=== PATIENT | male | born 1950 | race Caucasian/White ===

== ENCOUNTER 2016-06-11 11:55 | Inpatient (IN) | payer MEDICAID, OTHER ==
[~2016-06-11] VITALS: Ht 167.6 cm; Wt 67.8 kg
[2016-06-11 14:30] VITALS: BP 99/57
[2016-06-11] MEDS ORDERED: ACETAMINOPHEN TAB 650MG DOSE (2X325MG) PO PRN (15:00)
[2016-06-11 15:28] VITALS: BP 100/58
[2016-06-11] MEDS ORDERED: ACET50TA PO (15:35)
[2016-06-11] MEDS ORDERED: ASPI81TA13 PO (15:35)
[2016-06-11] MEDS ORDERED: AMIO20TA PO (15:35)
[2016-06-11] MEDS ORDERED: LISI40TAB PO (15:35)
[2016-06-11] MEDS ORDERED: XARE20TA PO (15:35)
[2016-06-11] MEDS ORDERED: ALBU17IN INH (15:35)
[2016-06-11] MEDS ORDERED: MAGN1TAB25 PO (15:35)
[2016-06-11] MEDS ORDERED: SERT-141 PO (15:35)
[2016-06-11] MEDS ORDERED: PANT40TA2 PO (15:35)
[2016-06-11] MEDS ORDERED: ATOR1TAB21 PO (15:35)
[2016-06-11] MEDS ORDERED: HYDR10T PO (15:35)
[2016-06-11] MEDS ORDERED: ALOG25TA PO (15:35)
[2016-06-11] MEDS ORDERED: RANE1000 PO (15:35)
[2016-06-11] MEDS ORDERED: METF500T PO (15:35)
[2016-06-11] MEDS ORDERED: AMLO2.5T PO (15:35)
[2016-06-11 16:35] LABS: ADD MORPHOLOGY? YES; BASO # 0.2 K/mm3 (0.0-0.2); BASO % 1.2 % (0.0-1.0); EOS # 0.3 K/mm3 (0.0-0.50); LARGE UNSTAINED CELL # 0.3 K/mm3 (0.0-0.4); LYMPH # 1.3 K/mm3 (1.5-4.5); LYMPH % 7.5 % (24.0-44.0); MEAN CORPUSCULAR HEMOGLOBIN 23.4 pg (27.0-33.0); MEAN CORPUSCULAR HGB CONC 29.7 g/dl (32.0-36.5); MEAN CORPUSCULAR VOLUME 78.9 fl (80.0-96.0); MONO # 1.1 K/mm3 (0.0-0.8); NEUTROPHILS # 10.4 K/mm3 (1.8-7.7); NEUTROPHILS % 79.2 % (36.0-66.0); PLATELET COUNT, AUTOMATED 350 k/mm3 (150-450); RED CELL DISTRIBUTION WIDTH 21.5 % (11.5-14.5); WHITE BLOOD COUNT 13.1 K/mm3 (4.0-10.0)
[2016-06-11 16:55] LABS: ALBUMIN 2.4 GM/DL (3.2-5.2); ALBUMIN/GLOBULIN RATIO 0.65 (1.00-1.93); ALKALINE PHOSPHATASE 141 U/L (45-117); ALT/SGPT 25 U/L (12-78); ANION GAP 9 MEQ/L (8-16); AST/SGOT 21 U/L (15-37); BILIRUBIN,TOTAL 0.6 MG/DL (0.2-1.0); BLOOD UREA NITROGEN 27 MG/DL (7-18); CALCIUM LEVEL 8.1 MG/DL (8.8-10.2); CARBON DIOXIDE LEVEL 24 MEQ/L (21-32); CHLORIDE LEVEL 105 MEQ/L (98-107); CHOLESTEROL LEVEL 95 MG/DL (< 200); CREATININE FOR GFR 0.77 MG/DL (0.70-1.30); GLOMERULAR FILTRATION RATE > 60.0 (>49); GLUCOSE, FASTING 131 MG/DL (80-110); MAGNESIUM LEVEL 2.1 MG/DL (1.8-2.4); PHOSPHORUS LEVEL 3.4 MG/DL (2.5-4.9); POTASSIUM SERUM 4.3 MEQ/L (3.5-5.1); SODIUM LEVEL 138 MEQ/L (136-145); TOTAL PROTEIN 6.1 GM/DL (6.4-8.2); TRIGLYCERIDES LEVEL 93 MG/DL (<150)
[2016-06-11 17:38] LABS: ANISOCYTOSIS 2+; HYPOCHROMASIA 1+; MICROCYTOSIS 1+; POLYCHROMASIA 1+
[2016-06-11] MEDS ORDERED: GLUCAGON FOR INJ 1 MG VIAL (J1610) SC PRN (17:45)
[2016-06-11] MEDS ORDERED: DEXTROSE 50% 50 ML SYRINGE IV PRN (17:45)
[2016-06-11] MEDS ORDERED: GLUCOSE 4 GM CHEW TABLET PO PRN (17:45)
[2016-06-11] MEDS ORDERED: hydrOXYzine 10 MG TAB PO PRN (18:00)
--- NOTE | 2016-06-11 18:29 | PHACANCOPD ---
PHARMACY VANCOMYCIN DOSING Pt Demographics Demographics Patient Age:66 , Weight:65.400 , Gender: male Adjusted Body Weight Date: 06/11/16, Adjusted Body Weight: Kg Events Past 24 Hours Events Past 24 Hours: YES: Elevation in WBC, NO: Change in CrCl, Dialysis, Diuretic Therapy, Fever, Other, Pending Diagnostics, Pending Procedures Vancomycin Vancomycin indication: pneumonia Vancomycin Target Ranges: 15-20 mcg/ml Vancomycin Load Y/N: No Load Dose Date Time Vancomycin Load Dose: Date: Time: Vancomycin Dose Date: 06/11/16. Current Vancomycin Dose: [1g IV q8h @21] Intermittent Dosing?: No Labs Labs Item Value Date Time White Blood Count 13.1 K/mm3 H 06/11/16 1616 Creatinine 0.77 MG/DL 06/11/16 1616 Micro Microbiology 06/11/16 Blood Culture, Received Pending 06/11/16 Blood Culture, Received Pending 06/11/16 MRSA Screen, Received Pending 06/11/16 Respiratory Virus Panel (PCR) ([facility]), Received Pending 06/11/16 Urine Culture, Received Pending Creatinine Clearance Date:06/11/16. Creatinine Clearance: [87 ml/min]. Pending Labs Vanco trough scheduled 06/13 @04:00 Assessment and Plan Maintaining Current Dose?: Yes Reason for dose change: No Dose Change Pharmacist Note Pharmacist Note Date: 06/11/16. Pharmacist note: pt was transferred from [facility] for pneumonia, he was started on meropenem and vancomycin upon arrival to [facility]. Per nursing, no medications were given at [place]. Pt has no medical Hx at our facility. I have started him on vancomycin 1g IV q8h and I have a trough scheduled before the 5th dose. Blood and MRSA screen are pending. We will continue to monitor. Sergey Kwon Pharm.D. Jun 11, 2016 18:29
--- NOTE | 2016-06-11 18:47 | REP ---
PA and lateral chest: Comparison is the PA and lateral chest study from earlier today. There are no other comparisons. There are diffuse bilateral interstitial and alveolar infiltrates. These are nonspecific, cardiogenic versus noncardiogenic. There are no pleural effusions. Cardiac size is normal. The jjoo, mediastinum, and bony thorax are unremarkable. Impression: Diffuse bilateral alveolar and interstitial infiltrates. No interval change. Signed by Gabo Blackwood MD 06/11/2016 06:39 P
[2016-06-11] MEDS: MEROPENEM INJ 1 GM in D5W MINI-BAG PLUS 100 ML IV SCH (19:22)
[2016-06-11] MEDS: IPRATROPIUM 0.5MG/ALBUTEROL 2.5MG INH SOL UD 3ML (DUONEB)(J7620) NEB SCH (20:14)
[2016-06-11 20:15] VITALS: O2SAT 93
[2016-06-11 20:26] VITALS: BP 104/56
[2016-06-11] MEDS: RIVAROXABAN 20 MG TAB (XARELTO) PO SCH (20:49)
[2016-06-11] MEDS: ATORVASTATIN 20 MG TAB PO SCH (20:49)
[2016-06-11] MEDS: VANCOMYCIN HCL 1,000 MG, VIAL MATE ADAPTER 1 EACH in D5W 250 ML IV SCH (20:49)
[2016-06-11] MEDS: RANOLAZINE 500 MG ER TAB PO SCH (20:49)
[2016-06-11] MEDS ORDERED: HumaLOG INSULIN (NovoLOG) PER UNIT SC SCH (21:00)
[2016-06-11] MEDS: IPRATROPIUM 0.5MG/ALBUTEROL 2.5MG INH SOL UD 3ML (DUONEB)(J7620) NEB PRN (23:53)
[2016-06-12] VITALS (13 sets, daily range): BP systolic 106–122; BP diastolic 56–68; O2SAT 90
[2016-06-12] MEDS: IPRATROPIUM 0.5MG/ALBUTEROL 2.5MG INH SOL UD 3ML (DUONEB)(J7620) NEB SCH ×4 (00:46→19:34)
[2016-06-12 01:19] LABS: MEAN CORPUSCULAR HEMOGLOBIN 25.3 pg (27.0-33.0); MEAN CORPUSCULAR HGB CONC 31.5 g/dl (32.0-36.5); MEAN CORPUSCULAR VOLUME 80.1 fl (80.0-96.0); RED CELL DISTRIBUTION WIDTH 19.5 % (11.5-14.5); WHITE BLOOD COUNT 15.4 K/mm3 (4.0-10.0)
--- NOTE | 2016-06-12 01:52 | HPE ---
DATE OF ADMISSION: 06/11/2016 REASON FOR ADMISSION: Shortness of breath. PRIMARY CARE PROVIDER: Kirstin Al. HISTORY OF PRESENT ILLNESS: The patient is a 66-year-old male, past medical history significant for chronic obstructive pulmonary disease (COPD), coronary artery disease, history of atrial fibrillation status post ablation, hypertension, diabetes and anxiety, presented to the emergency room at [facility] complaining of shortness of breath that has been getting progressively worse over the past 2 weeks. The patient stated it has been getting worse with ambulation and had some chest tightness yesterday, which resolved. States the chest tightness gets worse with activity. He denied any fevers or chills. No nausea, vomiting or diarrhea, but has been complaining of weakness as well. At [place], he underwent a chest x-ray and a CT scan, which showed bilateral pneumonia versus effusion and he was sent over to [facility] for higher level of care. REVIEW OF SYSTEMS: 12-point review of systems obtained all which was negative except for those mentioned above. PAST MEDICAL HISTORY: Significant for COPD. Patient is not oxygen dependent. Coronary artery disease status post one stent, which was done in [address] [facility], history of atrial fibrillation status post cardiac ablation March 2016, history of hypertension, history of anxiety, diabetes, non-insulin dependent. PAST SURGICAL HISTORY: Significant for cardiac stent, cardiac ablation, left hip surgery, carpal tunnel on the left. ALLERGIES: No known drug allergies. SOCIAL HISTORY: Patient has history of tobacco abuse, but quit 7 years ago. He used to smoke 3/4 of a pack a day for 30 years. No alcohol use. Lives at home alone. HOME MEDICATIONS: Include: - Tylenol 1000 mg by mouth every 8 hours as needed for pain - albuterol sulfate two puffs inhaled as needed - amiodarone 200 mg by mouth daily - amlodipine 2.5 mg by mouth daily - aspirin 81 mg by mouth daily - atorvastatin 20 mg by mouth daily - hydroxyzine 10 mg by mouth three times a day as needed for anxiety - lisinopril 40 mg at bedtime - metformin 500 mg by mouth twice a day - pantoprazole 40 mg by mouth daily - Ranexa 1000 mg by mouth twice a day - Xarelto 20 mg by mouth at bedtime - sertraline 50 mg by mouth daily Vital signs: Blood pressure 99/57, pulse 66, respiratory 22, temperature 97.6, pulse oximetry 90% on 6 liters nasal cannula. HEENT: Pupils equal, round, reactive to light and accommodation. Neck supple. No jugular venous distention (JVD). Lungs: Diminished breath sounds with positive rhonchi at the lung bases. Abdomen: Soft, nontender, nondistended. Extremities: No clubbing, cyanosis or edema. LABORATORY FINDINGS: WBC 13.1, hemoglobin 7.8, hematocrit 26.3, platelet count 350. Sodium 130, potassium 4.3, chloride 105, BUN 27, creatinine 0.77, fasting glucose 131. Troponin less than 0.02. IMAGING STUDIES: Unable to view at this time. Per report, the patient has bilateral pneumonia. ASSESSMENT AND PLAN: 1. Shortness of breath, likely multifactorial secondary to anemia plus or minus pneumonia plus or minus questionable pleural effusion. We will start the patient on Merrem and vancomycin. We will transfuse the patient one unit of blood. We will continue oxygen to keep saturations above 90%. The patient also may have history of chronic obstructive pulmonary disease (COPD), does not see pulmonology and no official pulmonary function tests (PFTs) done. Will continue DuoNebs scheduled and as needed. 2. Anemia. The patient has history of anemia. We will transfuse one unit of blood at this time, keep hemoglobin above 8 due to history of coronary disease. 3. Chest pain, which resolved. Cardiac enzymes are pending. At this time, the patient is not complaining of any chest pain. He does have history of coronary artery disease. He normally follows up with Dr. Rowe. He had a stent placed 11/09/2012. 4. History of atrial fibrillation. The patient is on Xarelto and amiodarone. He had an ablation March 2016. Continues to followup with Dr. Rowe. 5. History of hypertension. We will hold the patient's home medications for hypertension at this time due to hypotension. 6. Type 2 diabetes. The patient is only on metformin at home. We will hold metformin for now and start the patient on insulin sliding scale, consistent carbohydrate diet. 7. History of anxiety. Will continue the patient's sertraline. 8. History of COPD. No official PFTs done. We will continue DuoNebs, oxygen and continue to monitor. 9. Deep venous thrombosis (DVT) prophylaxis. Patient is currently on Xarelto. The patient will be seen by Dr. Fernando in the morning.
[2016-06-12 02:33] LABS: ABG BASE EXCESS -3.3 (-2.0-2.0); ABG HCO3 19.5 MEQ/L (22.0-26.0); ABG PARTIAL PRESSURE CO2 26.7 mmHg (35.0-45.0); ABG STANDARD HCO3 21.6 MEQ/L (22.0-26.0); ABG TOTAL CO2 20.3 MEQ/L (23.0-31.0); ABG pH (ARTERIAL) 7.481 UNITS (7.350-7.450)
[2016-06-12 02:59] LABS: INR 2.43
[2016-06-12] MEDS: VANCOMYCIN HCL 1,000 MG, VIAL MATE ADAPTER 1 EACH in D5W 250 ML IV SCH ×3 (04:00→21:34)
[2016-06-12] MEDS: MEROPENEM INJ 1 GM in D5W MINI-BAG PLUS 100 ML IV SCH ×3 (04:00→20:04)
[2016-06-12 05:40] LABS: BASO % 0.3 % (0.0-1.0); EOS # 0.3 K/mm3 (0.0-0.50); LARGE UNSTAINED CELL # 0.3 K/mm3 (0.0-0.4); LARGE UNSTAINED CELL % 1.7 % (0.0-4.0); LYMPH # 1.4 K/mm3 (1.5-4.5); LYMPH % 7.7 % (24.0-44.0); MEAN CORPUSCULAR HEMOGLOBIN 24.7 pg (27.0-33.0); MEAN CORPUSCULAR HGB CONC 30.5 g/dl (32.0-36.5); MEAN CORPUSCULAR VOLUME 80.9 fl (80.0-96.0); MONO % 6.9 % (0.0-5.0); NEUTROPHILS # 12.1 K/mm3 (1.8-7.7); NEUTROPHILS % 81.3 % (36.0-66.0); PLATELET COUNT, AUTOMATED 311 k/mm3 (150-450); RED CELL DISTRIBUTION WIDTH 20.8 % (11.5-14.5); WHITE BLOOD COUNT 14.8 K/mm3 (4.0-10.0)
[2016-06-12 06:00] LABS: ALBUMIN 2.1 GM/DL (3.2-5.2); ALBUMIN/GLOBULIN RATIO 0.53 (1.00-1.93); ALKALINE PHOSPHATASE 126 U/L (45-117); ALT/SGPT 21 U/L (12-78); ANION GAP 10 MEQ/L (8-16); AST/SGOT 22 U/L (15-37); BILIRUBIN,TOTAL 0.9 MG/DL (0.2-1.0); BLOOD UREA NITROGEN 18 MG/DL (7-18); CALCIUM LEVEL 7.6 MG/DL (8.8-10.2); CARBON DIOXIDE LEVEL 22 MEQ/L (21-32); CHLORIDE LEVEL 104 MEQ/L (98-107); CREATININE FOR GFR 0.65 MG/DL (0.70-1.30); GLOMERULAR FILTRATION RATE > 60.0 (>49); GLUCOSE, FASTING 134 MG/DL (80-110); MAGNESIUM LEVEL 1.7 MG/DL (1.8-2.4); PHOSPHORUS LEVEL 2.8 MG/DL (2.5-4.9); SODIUM LEVEL 136 MEQ/L (136-145); TOTAL PROTEIN 6.1 GM/DL (6.4-8.2)
[2016-06-12] MEDS: HumaLOG INSULIN (NovoLOG) PER UNIT SC SCH ×3 (06:00→17:10)
[2016-06-12 06:13] LABS: ABG BASE EXCESS -2.3 (-2.0-2.0); ABG HCO3 20.3 MEQ/L (22.0-26.0); ABG PARTIAL PRESSURE O2 65.2 mmHg (75.0-100.0); ABG STANDARD HCO3 22.4 MEQ/L (22.0-26.0); ABG TOTAL CO2 21.1 MEQ/L (23.0-31.0); ABG pH (ARTERIAL) 7.494 UNITS (7.350-7.450)
[2016-06-12] MEDS ORDERED: DEXTROSE 50% 50 ML SYRINGE IV PRN (06:45)
[2016-06-12] MEDS ORDERED: GLUCOSE 4 GM CHEW TABLET PO PRN (06:45)
[2016-06-12] MEDS ORDERED: GLUCAGON FOR INJ 1 MG VIAL (J1610) SC PRN (06:45)
[2016-06-12] MEDS ORDERED: HumaLOG INSULIN (NovoLOG) PER UNIT SC SCH (07:30)
[2016-06-12] MEDS: SERTRALINE HCL 50 MG TAB PO SCH (08:46)
[2016-06-12] MEDS: ASPIRIN 81 MG ENTERIC TAB PO SCH (08:46)
[2016-06-12] MEDS: PANTOPRAZOLE 40MG TAB (PROTONIX) PO SCH (08:46)
[2016-06-12] MEDS ORDERED: MAG SULF 1GM/100ML (MAG RUN) 1 GM in APPROPRIATE DILUENT 1 EA IV ONE (09:00)
--- NOTE | 2016-06-12 09:09 | REP ---
Chest x-ray: Single view. History: Worsening shortness of breath. Comparison chest x-ray is from the previous day June 11, 2016. Findings: There is progressive opacification of the pulmonary interstitium bilaterally. Cardiomegaly is observed. There is some subpleural edema along the right lateral and inferior chest wall. Impression: Radiographically progressive interstitial edema versus infiltrate pattern. Cardiomegaly. Subpleural edema. CHF with pulmonary edema versus interstitial infiltrates. Signed by Joselito Tolbert MD 06/12/2016 01:10 P
[2016-06-12] MEDS ORDERED: ISOVUE-370 76% 100ML VIAL (Q9967) As Ordered ONE (09:17)
--- NOTE | 2016-06-12 09:58 | ECGEPIP ---
Stationary ECG Study [facility] Test Date: 2016-06-11 Pat Name: HITESH KNOX Department: Room: [place] [address] Gender: M Vp Mobile Products: BASIM : 1950 Requested By: BERNY FINNEY Order Number: [id number] Reading MD: Asad Mukherjee Measurements Intervals [place] Rate: 60 P: 60 GA: 150 QRS: -3 QRSD: 109 T: 62 QT: 448 QTc: 448 Interpretive Statements Normal sinus rhythm Small high lateral Q waves Incomplete right bundle branch block Nonspecific ST-T wave abnormalities Comparison tracing not on file Electronically Signed On 06-12-2016 9:57:53 EST by Asad Mukherjee
--- NOTE | 2016-06-12 10:31 | REP ---
CTA chest 06/12/2016 Indication: Hypoxia Comparison: Unenhanced CT of the chest and chest radiograph 06/11/2016 performed at [facility]. Technique: Following IV contrast administration with 75 ml Isovue 370 mg/ml IV, 3 mm spiral axial sections were performed through the chest Findings: The thoracic aorta is without aneurysm or dissection Pulmonary artery outflow tract and and right main pulmonary artery are enlarged suggesting pulmonary arterial hypertension. Right main pulmonary artery is 2.9 cm transverse dimension. There are no pulmonary filling defects or findings to suggest pulmonary artery embolus. There are a few scattered mediastinal and hilar nodes which are enlarged, measuring 10 mm short axis diameter in the right inferior hilum, and 16 mm in the subcarinal location. Extensive interstitial infiltrates are seen diffusely with some mild sparing in the right upper lobe. There are no pulmonary artery filling defects or findings to suggest pulmonary artery emboli. Prior CT chest report of and/or on 06/11/2016 noted that a previous study 01/21/2015 did not have the current findings, which would raise concern for a recurrent inflammatory or infectious process. There are no pleural effusions. 7 mm noncalcified pulmonary nodule present within the right lower lobe, image 54 series 402 Visualized portions of the liver spleen pancreas gallbladder are normal. There is a a 0.8 cm left adrenal adenoma. The right adrenal gland is indeterminate based on density, greater than adenoma Impression No evidence of pulmonary artery embolus. Diffuse interstitial infiltrates with tiny cystic changes not significantly changed from CTA chest performed yesterday, at [facility] Differential diagnosis includes chronic interstitial fibrosis, recurrent pneumonia. Pulmonary consultation recommended 7 mm noncalcified pulmonary nodule in right lower lobe image 54 series 402. Recommend follow-up CT chest in three months' for reevaluation. Signed by Yamila Gallo MD 06/12/2016 10:22 A
[2016-06-12] MEDS: RANOLAZINE 500 MG ER TAB PO SCH ×2 (14:14→21:34)
--- NOTE | 2016-06-12 15:48 | CCN ---
DATE: 06/12/[address] Fernando to emergently evaluate Mr. Velazquez for acute hypoxic respiratory failure. Mr. Velazquez is a 66-year-old white male who has had a 2 to 4 week, and perhaps slightly longer history of increasing dyspnea on exertion. He also has a cough associated with it. He feels there were times the cough may be productive, but he has not expectorated. No fevers, chills, or drenching night sweats. No ill contact. He had some chest tightness the day prior to admission, but that resolved. Because of his progressive symptoms he presented to [place] emergency department. There he had a chest x-ray and chest CT scan which showed a "bilateral pneumonia versus effusion" and he was sent to [facility] for further evaluation. He was admitted here yesterday evening and was requiring 6 to 8 liters of oxygen by nasal cannula. Early in the evening he received one unit of packed red blood cells. His oxygenation progressively got worse, first going on 80% aerosol mask and then because his saturations on that set up were only 90% he was transferred to the ICU for further therapy. He was placed on a continuous positive airway pressure (CPAP) of 5 cm of water pressure , which I increased to 10 cm of water pressure. Currently he denies any dyspnea on exertion. No chest pain or pressure. He still has a cough that is predominantly dry. No nausea or abdominal pain. He denies any peripheral edema prior to admission. PAST MEDICAL HISTORY His past medical history is significant for atrial fibrillation for which he is on Eliquis, hypertension, diabetes mellitus, anxiety and coronary artery disease (status post stent 2012) and per the chart chronic obstructive pulmonary disease (do not know lung mechanics and he is not on any pulmonary directed therapy.) In regards to his atrial fibrillation he is status post ablation 03/2016. ALLERGIES: No known drug allergies. MEDICATIONS ON ADMISSION: - Tylenol 1,000 mg by mouth every 8 hours as needed - albuterol sulfate 2 puffs as needed - amiodarone 200 mg by mouth every day - amlodipine 2.5 mg by mouth every day - aspirin 81 mg by mouth every day - atorvastatin 20 mg by mouth every day - hydroxyzine 10 mg by mouth three times a day as needed anxiety - lisinopril 40 mg at bedtime - metformin 500 mg by mouth twice a day - pantoprazole 40 mg by mouth every day - Ranexa 1,000 mg by mouth twice a day - Xarelto 20 mg by mouth at bedtime - sertraline 50 mg by mouth every day PHYSICAL EXAMINATION: VITAL SIGNS: Temperature 99.8 which is his T-max, pulse 62, respiratory rate 20, blood pressure 107/63 with a MAP of 78, SpO2 93% on a continuous positive airway pressure (CPAP) of 5 cm with an FiO2 of 0.5. GENERAL: Mr. Velazquez is lying in bed with a full face mask on with CPAP device and appears comfortable. HEENT: Anicteric. Pupils equal, round, reactive to light. Oropharynx and nares not examined secondary to full face mask. NECK: Supple, without jugular venous distention, thyromegaly or masses, trachea is midline. LYMPH: Without cervical or supraclavicular adenopathy. CHEST: Normal shape. LUNGS: Symmetric excursion. Good air entry . Fine crackles approximately half way up on right and quarter way up on the left. Normal I:E. No rhonchi or wheezes. CARDIOVASCULAR: Regular rate and rhythm with a normal S1, S2, no murmur, rub or gallop appreciated. ABDOMEN: Positive bowel sounds, soft, non-distended, non-tender. No hepatosplenomegaly or masses appreciated. EXTREMITIES: Without clubbing, cyanosis, or edema. LABORATORY DATA: CBC from this morning showed a hemoglobin of 8.1, hematocrit 26.7, platelet count 311,000 and WBC 14,800 with a differential of 81% neutrophils, 8% lymphocytes, and 7% monocytes. CHEMISTRY: Shows sodium 136, potassium 4.0, chloride 104, bicarbonate 22, anion gap 10, BUN 18, creatinine 0.7, glucose 134, lactic acid 1.7, calcium 7.6, phosphorous 2.8, magnesium 1.7, total bilirubin 0.9, AST 22, ALT 21, alkaline phosphatase 126, total protein 6.1, albumin 2.1, CK 18, CK-MB 1.0, troponin less than 0.02, BNP 136. INR 2.43. Arterial blood gas this morning is 0.08 aerosol mask with 7.49/27/65 with a measured saturation of 92% and a base excess of -2.3. Respiratory panel: Negative. I reviewed his chest x-ray from earlier today. It showed what appeared to be an enlarged cardiac silhouette on a single view chest x-ray. There was bilateral interstitial infiltrates. Not likely significantly different from x-ray obtained yesterday. I also reviewed his chest CT scan as well as the report. That CT scan showed normal appearing cardiac silhouette with perhaps enlarged pulmonary vasculature shadows. There was no hilar adenopathy but there was a 16 mm subcarinal lymph node. There was bilateral interstitial infiltrates with relative sparing of the right upper lobe. There was some evidence of bronchiectasis. There was peripheral cystic changes. Per the report, there was no significant change compared to the CT scan in [place] on 06/11/2016. There was a non calcified right lower lobe pulmonary nodule that measured 7 mm. No pulmonary emboli were seen. IMPRESSION: 1. Acute hypoxemic respiratory failure. I suspect this is secondary to the same cause causing his interstitial infiltrates. Unfortunately amiodarone toxicity has to be in the differential. 2. Bilateral interstitial infiltrates with some appearance of chronicity. These have likely developed over at least the past 2-4 weeks and more likely a more prolonged period of time. No history to suggest an acute infectious illness. While TRAILI is in the differential this seems less likely given that his symptoms and hypoxemia were progressing before he got the blood transfusion. Pulmonary edema would be in the differential as well although there are no other signs suggestive of fluid overload. Idiopathic pulmonary fibrosis or other causes of interstitial lung disease would be in the differential as well. 3. Atrial fibrillation status post recent ablation and on amiodarone. 4. Coronary artery disease. 5. Chronic obstructive pulmonary disease per chart. 6. History of tobacco usage. RECOMMENDATIONS: 1. I recommend continuing with continuous positive airway pressure (CPAP) support. 2. Await results of STAT echocardiogram. 3. Could consider gentle diuresis, though again I am not highly suspicious for fluid overload. 4. Unfortunately as amiodarone toxicity has to be in the differential, would consider consulting cardiology regarding stopping that medication and appropriate substitution. 5. Would add systemic corticosteroids as some causes of interstitial lung disease will be responsive to corticosteroids, but certainly not all. 6. Agree with treatment for a pneumonic process, again I am not highly suspicious of that. CRITICAL CARE TIME: 50 minutes not including procedure time. [facility]
--- NOTE | 2016-06-12 16:20 | IPNPDOC ---
Text Note Date of Service The patient was seen on 06/12/16 at 16:05. NOTE Subjective: Patient is a 66 year old male with a PMHx of COPD, CAD s/p stent (2012 ), Atrial fibrillation s/p ablation (03/2016), HTN, Anxiety, NIDDM2 who presented to the [facility] for shortness of breath. He was received a CT of his chest which revealed possible bilateral pneumonia and was transferred to [facility]. Patient noted that he has been experiencing progressive shortness of breath for 2 weeks or longer. He noted some intermittent chest tightness. Denied any productive cough, denied fever or chills. Patient was seen and examined at the bedside. He was severely hypoxic and was upgraded to ICU for CPAP. Objective: Vitals (See below) General: Lying in bed, no acute distress, AAOx3 HEENT: NC, AT, -JVD CVS: RRR, +S1S2 Lungs: Fair air entry b/l, + inspiratory crackles diffusely Abdomen: Soft, ND, NT, +BSx4 Extremities: +PPx4, -edema, -calf tenderness Assessment and plan: 1. Dyspnea - 2/2 acute hypoxic respiratory failure - possibly 2/2 amiodarone induced lung toxicity, bilateral pneumonia, possible COPD - Presented with worsening shortness of breath over 2 weeks or more - Has been on amiodarone since March - Inspiratory crackles at bilateral lung troncoso diffusely - WBC elevated - Will check CRP - Will check Blood culture, Sputum Culture, Resp panel - c/w CPAP and ICU monitoring - c/w Duonebs - c/w Vancomycin & Meropenem (Day #2) - Added solumedrol to evaluate for improvement - Dr. Corral (Pulmonary / Critical care) following - appreciate their input - Will discuss case with Cardiology (Dr. Rowe) 2. Anemia - Hg has been lower than baseline - s/p 1 unit PRBC transfusion - Will continue to monitor for now 3. Intermittent chest pain - less likely 2/2 cardiac etiology - no elevation in troponin - EKG without ischemic changes 4. CAD s/p stent (10/2012) - c/w ASA and Atorvastatin - Follows with Dr. Rowe 5. Atrial fibrillation - will hold amiodarone - s/p Ablation (03/2016) - will monitor in ICU / telemetry - c/w Xarelto 6. HTN - BP well controlled 7. NIDDM2 - c/w ISS 8. Anxiety - c/w sertraline 9. COPD - needs to have an official PFTs - c/w oxygen and duoneb 10. GI prophylaxis - c/w protonix 11. DVT prophylaxis - on full anticoagulation with Xarelto VS,Fishbone, I+O VS, Fishbone, I+O Laboratory Tests 06/11/16 16:16 Calcium Level 8.1 L, Phosphorus Level 3.4, Aspartate Amino Transf (AST/SGOT) 21 , Alanine Aminotransferase (ALT/SGPT) 25, Lactate Dehydrogenase 347 H, Total Creatine Kinase 19 L, Alkaline Phosphatase 141 H, Total Bilirubin 0.6, Triglycerides Level 93, Cholesterol Level 95, Total Protein 6.1 L, Albumin 2.4 L , Red Blood Count 3.34 L, Mean Corpuscular Volume 78.9 L, Mean Corpuscular Hemoglobin 23.4 L, Mean Corpuscular Hemoglobin Concent 29.7 L, Red Cell Distribution Width 21.5 H, Neutrophils (%) (Auto) 79.2 H, Lymphocytes (%) (Auto ) 7.5 L, Monocytes (%) (Auto) 8.0 H, Eosinophils (%) (Auto) 2.0, Basophils (%) ( Auto) 1.2 H, Neutrophils # (Auto) 10.4 H, Lymphocytes # (Auto) 1.3 L, Monocytes # (Auto) 1.1 H, Eosinophils # (Auto) 0.3, Basophils # (Auto) 0.2 06/12/16 01:04 Red Blood Count 3.28 L, Mean Corpuscular Volume 80.1, Mean Corpuscular Hemoglobin 25.3 L, Mean Corpuscular Hemoglobin Concent 31.5 L, Red Cell Distribution Width 19.5 H 06/12/16 05:15 Calcium Level 7.6 L, Phosphorus Level 2.8, Aspartate Amino Transf (AST/SGOT) 22 , Alanine Aminotransferase (ALT/SGPT) 21, Alkaline Phosphatase 126 H, Total Bilirubin 0.9, Total Protein 6.1 L, Albumin 2.1 L, Red Blood Count 3.30 L, Mean Corpuscular Volume 80.9, Mean Corpuscular Hemoglobin 24.7 L, Mean Corpuscular Hemoglobin Concent 30.5 L, Red Cell Distribution Width 20.8 H, Neutrophils (%) ( Auto) 81.3 H, Lymphocytes (%) (Auto) 7.7 L, Monocytes (%) (Auto) 6.9 H, Eosinophils (%) (Auto) 2.0, Basophils (%) (Auto) 0.3, Neutrophils # (Auto) 12.1 H, Lymphocytes # (Auto) 1.4 L, Monocytes # (Auto) 1.0 H, Eosinophils # (Auto) 0.3, Basophils # (Auto) 0.0 Vital Signs Date Time Temp Pulse Resp B/P Pulse Ox O2 Delivery O2 Flow Rate FiO2 06/12/16 13:56 61 30 06/12/16 12:00 99.4 106/60 93 NIPPV (BIPAP/CPAP) 50 06/12/16 04:01 8.0 I&O- Last 24 Hours up to 6 AM 06/12/16 06:00 Intake Total 2265 ml Output Total 1125 ml Balance 1140 ml BERNY FINNEY MD Jun 12, 2016 16:20
[2016-06-12] MEDS: methylPREDNISolone INJ 125 MG/2 ML VIAL (J2930) IV SCH (16:53)
[2016-06-12] MEDS: RIVAROXABAN 20 MG TAB (XARELTO) PO SCH (21:33)
[2016-06-12] MEDS: ATORVASTATIN 20 MG TAB PO SCH (21:33)
[2016-06-13] VITALS (7 sets, daily range): BP systolic 95–105; BP diastolic 52–66
[2016-06-13] MEDS: methylPREDNISolone INJ 125 MG/2 ML VIAL (J2930) IV SCH ×3 (00:22→17:04)
[2016-06-13] MEDS: HumaLOG INSULIN (NovoLOG) PER UNIT SC SCH ×4 (00:23→17:04)
[2016-06-13] MEDS: IPRATROPIUM 0.5MG/ALBUTEROL 2.5MG INH SOL UD 3ML (DUONEB)(J7620) NEB SCH ×4 (02:00→19:24)
[2016-06-13] MEDS: MEROPENEM INJ 1 GM in D5W MINI-BAG PLUS 100 ML IV SCH ×3 (04:42→20:26)
[2016-06-13 05:02] LABS: EOS % 0.5 % (0.0-3.0); LARGE UNSTAINED CELL # 0.1 K/mm3 (0.0-0.4); LARGE UNSTAINED CELL % 1.1 % (0.0-4.0); LYMPH # 0.4 K/mm3 (1.5-4.5); LYMPH % 5.8 % (24.0-44.0); MEAN CORPUSCULAR HEMOGLOBIN 25.1 pg (27.0-33.0); MEAN CORPUSCULAR HGB CONC 31.4 g/dl (32.0-36.5); MEAN CORPUSCULAR VOLUME 79.8 fl (80.0-96.0); MONO # 0.2 K/mm3 (0.0-0.8); NEUTROPHILS # 6.7 K/mm3 (1.8-7.7); NEUTROPHILS % 89.7 % (36.0-66.0); PLATELET COUNT, AUTOMATED 287 k/mm3 (150-450); RED CELL DISTRIBUTION WIDTH 19.5 % (11.5-14.5); WHITE BLOOD COUNT 7.5 K/mm3 (4.0-10.0)
--- NOTE | 2016-06-13 05:11 | PHACANCOPD ---
PHARMACY VANCOMYCIN DOSING Pt Demographics Demographics Patient Age:66 , Weight:67.000 , Gender: male Adjusted Body Weight Date: 06/11/16, Adjusted Body Weight: Kg Events Past 24 Hours Events Past 24 Hours: NO: Change in CrCl, Dialysis, Diuretic Therapy, Elevation in WBC, Fever, Other, Pending Diagnostics, Pending Procedures Vancomycin Vancomycin indication: pneumonia Vancomycin Target Ranges: 15-20 mcg/ml Vancomycin Load Y/N: No Load Dose Date Time Vancomycin Load Dose: Date: Time: Vancomycin Dose Date: 06/13/16. Current Vancomycin Dose: [1g IV q8h @21] Intermittent Dosing?: No Labs Labs Item Value Date Time White Blood Count 7.5 K/mm3 06/13/16 0403 Creatinine 0.65 MG/DL L 06/12/16 0515 Vancomycin Level Trough 16.7 UG/ML 06/13/16 0403 Vital Signs Label Value Date Time Patient Temperature 98.1 degrees F 06/13/16 0430 Temperature Source Tympanic 06/13/16 0430 Micro Microbiology 06/11/16 Blood Culture - Preliminary, Resulted No growth after 24 hours . All specim... 06/11/16 Blood Culture - Preliminary, Resulted No growth after 24 hours . All specim... 06/11/16 MRSA Screen, Received Pending 06/11/16 Respiratory Virus Panel (PCR) ([facility]) - Final, Complete 06/11/16 Urine Culture - Final, Complete Creatinine Clearance Date:06/11/16. Creatinine Clearance: [87 ml/min]. Assessment and Plan Maintaining Current Dose?: Yes Reason for dose change: No Dose Change Pharmacist Note Pharmacist Note Date: 06/13/16. Pharmacist note:Trough of 16.7 is within target range. Will continue current dosing. Will continue to monitor and make adjustments as needed. Date: 06/11/16. Pharmacist note: pt was transferred from [facility] for pneumonia, he was started on meropenem and vancomycin upon arrival to [facility]. Per nursing, no medications were given at [place]. Pt has no medical Hx at our facility. I have started him on vancomycin 1g IV q8h and I have a trough scheduled before the 5th dose. Blood and MRSA screen are pending. We will continue to monitor. SHANEL GARCIA PHARM[facility] Jun 13, 2016 05:11
[2016-06-13 05:16] LABS: ALBUMIN 2.2 GM/DL (3.2-5.2); ALBUMIN/GLOBULIN RATIO 0.56 (1.00-1.93); ALKALINE PHOSPHATASE 136 U/L (45-117); ALT/SGPT 20 U/L (12-78); ANION GAP 9 MEQ/L (8-16); AST/SGOT 19 U/L (15-37); BLOOD UREA NITROGEN 14 MG/DL (7-18); CALCIUM LEVEL 7.9 MG/DL (8.8-10.2); CARBON DIOXIDE LEVEL 23 MEQ/L (21-32); CHLORIDE LEVEL 101 MEQ/L (98-107); CREATININE FOR GFR 0.52 MG/DL (0.70-1.30); GLOMERULAR FILTRATION RATE > 60.0 (>49); GLUCOSE, FASTING 123 MG/DL (80-110); MAGNESIUM LEVEL 2.2 MG/DL (1.8-2.4); POTASSIUM SERUM 4.4 MEQ/L (3.5-5.1); SODIUM LEVEL 133 MEQ/L (136-145); TOTAL PROTEIN 6.1 GM/DL (6.4-8.2)
[2016-06-13] MEDS: VANCOMYCIN HCL 1,000 MG, VIAL MATE ADAPTER 1 EACH in D5W 250 ML IV SCH ×3 (05:34→20:26)
--- NOTE | 2016-06-13 05:44 | ECHO ---
DATE OF PROCEDURE: 06/12/2016 REFERRING PHYSICIAN: Dr. Drew Denton. INDICATION: Heart failure unspecified. WEIGHT: 147 pounds. MEASUREMENTS: Aortic root: 3.6 cm Proximal ascending aorta: 3.9 cm Left atrium: 4.9 cm Ventricular septum: 1.30 cm Posterior wall: 1.24 cm Left ventricle diastole: 5.0 cm Left ventricle systole: 2.7 cm Right ventricle: 4.6 cm LVOT: 2.2 cm Inferior vena cava: 1.9 cm DOPPLER MEASUREMENTS: Very mild aortic regurgitation. Aortic valve velocity: 230 cm/s LVOT velocity: 215 cm/s LVOT VTI: 41.1 cm Mild mitral regurgitation. Mitral E velocity: 145 cm/s Mitral A velocity: 138 cm/s Mitral deacceleration time: 243 ms Moderate tricuspid regurgitation. Estimated right ventricular systolic pressure 60 mmHg assuming an atrial pressure of 10 mmHg. Mild pulmonic regurgitation. MITRAL ANNULAR TISSUE DOPPLER: E-prime septal: 7.8 cm/s E-prime lateral: 12.2 cm/s DESCRIPTION: Rhythm was sinus. Image quality was fair. No pericardial effusion. This was a 2D , M-mode, color flow Doppler and pulsed wave Doppler examination and included mitral annular tissue Doppler. CONCLUSIONS: 1. Mild concentric left ventricular hypertrophy. Normal LV wall motion and wall thickening. Normal LV systolic function. LVEF 65% by visual estimate. Normal LV diastolic function. 2. Moderate left atrial dilatation. 3. Mild dilatation of the proximal ascending aorta. Aortic root normal in size at the level of the sinuses of Valsalva. 4. Suggestive of severe elevation of estimated right ventricle systolic pressure (60 mmHg). Moderate tricuspid regurgitation. Mild right ventricle dilatation. Normal RV size and systolic function. [facility]
[2016-06-13] MEDS: ASPIRIN 81 MG ENTERIC TAB PO SCH (08:56)
[2016-06-13] MEDS: RANOLAZINE 500 MG ER TAB PO SCH ×2 (08:56→20:26)
[2016-06-13] MEDS: SERTRALINE HCL 50 MG TAB PO SCH (08:56)
[2016-06-13] MEDS: PANTOPRAZOLE 40MG TAB (PROTONIX) PO SCH (08:57)
--- NOTE | 2016-06-13 09:41 | REP ---
Portable chest x-ray: Single upright AP view. History: Hypoxemia. Comparison chest x-ray is from June 12, 2016. Findings: EKG monitoring electrodes overlie the chest. Diffuse interstitial edema or infiltrate pattern is seen. There is less involvement of the right upper lobe. There is some pleural thickening along the inferolateral chest rivera bilaterally. This may be subpleural edema. Fissural thickening is noted on the right. Heart size is borderline unchanged. Impression: Severe diffuse interstitial edema or infiltrate pattern again noted essentially unchanged from the previous day's study. Signed by Joselito Tolbert MD 06/13/2016 10:19 A
--- NOTE | 2016-06-13 12:15 | IPN ---
DATE: 06/13/2016 SUBJECTIVE: This is a 66-year-old male who was seen and examined at bedtime. Overnight patient continued to be on CPAP. This morning states that he feels better with his breathing, has dry cough. No fevers, chills, chest pain, nausea , vomiting, abdominal pain. OBJECTIVE: Vital signs: Blood pressure 105/56, heart rate 64, temperature 98.8 , pulse ox 91% on 35% FiO2, respiratory rate 24. Intake and output 2195 and 1975. Had 4 voids 1 bowel movement. General: Patient is sitting in bed, comfortable, in no acute distress. Wearing his CPAP machine. He is alert, awake, oriented times three. Pleasant, cooperative, thin appearing. HEENT: Normocephalic, atraumatic. Extraocular movement intact. Neck: Supple. Trachea midline. Chest: Symmetric chest rise. No accessory muscle use. Breath sounds were diminished in the lung bases with occasional crackles. There is dullness to percussion in the lung bases. Heart: Regular rate and rhythm. S2 present. Could not appreciate any murmurs, rubs or gallops. Abdomen: Soft, nontender, nondistended. Bowel sounds present. No guarding. Extremities: No pedal edema. Pedal pulses present bilaterally. LABORATORY DATA: WBC 7.5, hemoglobin 7.7, hematocrit 24.6 decreased compared to yesterday 8.1 and 26.7. Platelets 287. Neutrophil 89.7, sodium 133, potassium 4.4, chloride 101, carbon dioxide 23, BUN 14, creatinine 0.52, glucose 123, calcium 7.9, magnesium 2.2. AST 19, ALT 20, alkaline phosphatase 136, troponins negative times three. Vancomycin level 16.7. Blood cultures negative after 24 hours. Respiratory syncytial virus (RSV) panel negative. Methicillin-resistant staphylococcus aureus (MRSA) screen negative. Urine culture final no growth. CTA from yesterday showed no evidence of pulmonary emboli. Diffuse interstitial infiltrates with tiny cystic changes, not changed from CTA previously. 7 mm noncalcified pulmonary nodule in right lower lobe. Chest x-ray performed today showed no significant change compared to previous. Still severe diffuse interstitial edema and infiltrate. IMPRESSION AND PLAN: Mr. Velazquez is a 66-year-old male with past medical history of tobacco abuse, atrial fibrillation status post ablation on anticoagulation who was transferred from [facility] due to respiratory distress. 1. Dyspnea and hypoxemia. Etiology remains unclear. Possible causes include interstitial fibrosis, pneumonia, TRAILI, acute respiratory distress syndrome, chronic obstructive pulmonary disease (COPD) exacerbation, amiodarone toxicity, or chemical pneumonitis. His oxygen requirement has improved compared to previous visits. Currently TRAILI appears to be at least likely as he has had progression of his symptoms ongoing for approximately 2-4 weeks. Amiodarone is currently on hold due to concern that this could contribute to his breathing. Check sputum culture. Continue broad spectrum antibiotics, vancomycin and meropenem. Solu-Medrol 60 every 8 hours. DuoNebs scheduled and as needed. Currently on day 3 of antibiotics. 2. Anemia. Reason unclear. Will check occult study and check iron studies. 3. Atrial fibrillation. Amiodarone is currently on hold due to reasons mentioned above. He is status ablation March 2016. Continue Xarelto for now. Check stool occult as mentioned above for anemia. 4. Type 2 diabetes. Continue insulin sliding scale. 5. Hypertension. Blood pressure has been more on the low side. His home antihypertensive medications including lisinopril and Norvasc are currently on hold at this time. 6. Hyperlipidemia. Continue home dose Lipitor. 7. History of coronary artery disease (CAD) status post stent in 2012. Continue aspirin 81 mg daily, Lipitor 20 mg daily at bedtime. Is not on a beta nasir, reason unclear. Could be due to his underlying lung problem. 8. History of anxiety. Continue home dose Zoloft 50 mg by mouth daily. 9. Gastroesophageal reflux disease (GERD). Continue home dose Protonix 40 mg by mouth daily. 10. Deep venous thrombosis (DVT) prophylaxis, Sequential compression devices (SCD), thromboembolic deterrent stockings (TEDS) and currently on Xarelto for atrial fibrillation. My preceptor for this patient encounter was Dr. Dian Fernando. The preceptor was physically present in the building during the encounter and was fully available. As needed, all aspects of the patient interview, examination, medical decision making process, and medical care plan development were reviewed and approved by the preceptor. The preceptor is aware and concurs with the plan as stated in the body of this note and will attest to such by his/her cosignature. I, Dian Fernando, have both independently examined this patient as well as reviewed the documentation. I have discussed in detail with the resident the findings and plan of treatment as documented in the residents documentation. I will continue to follow the patient and offer further guidance to the patients care as necessary during this hospital stay. TABATHA
[2016-06-13] MEDS ORDERED: SLF 3 ML SYR IV PRN (13:15)
[2016-06-13] MEDS: SLF 3 ML SYR IV SCH ×2 (14:02→22:00)
[2016-06-13] MEDS: RIVAROXABAN 20 MG TAB (XARELTO) PO SCH (20:26)
[2016-06-13] MEDS: ATORVASTATIN 20 MG TAB PO SCH (20:26)
[2016-06-14] VITALS (11 sets, daily range): BP systolic 77–122; BP diastolic 47–64
[2016-06-14] MEDS: methylPREDNISolone INJ 125 MG/2 ML VIAL (J2930) IV SCH ×3 (00:23→17:25)
[2016-06-14] MEDS: HumaLOG INSULIN (NovoLOG) PER UNIT SC SCH ×5 (00:23→20:42)
[2016-06-14] MEDS: IPRATROPIUM 0.5MG/ALBUTEROL 2.5MG INH SOL UD 3ML (DUONEB)(J7620) NEB SCH ×4 (01:42→23:28)
[2016-06-14] MEDS: MEROPENEM INJ 1 GM in D5W MINI-BAG PLUS 100 ML IV SCH ×3 (04:14→20:43)
[2016-06-14] MEDS: SLF 3 ML SYR IV SCH ×3 (05:02→22:00)
[2016-06-14] MEDS: VANCOMYCIN HCL 1,000 MG, VIAL MATE ADAPTER 1 EACH in D5W 250 ML IV SCH ×3 (05:02→20:42)
[2016-06-14 05:55] LABS: PERCENT SATURATION 4.3 % (19.7-37.4)
[2016-06-14 05:57] LABS: ALKALINE PHOSPHATASE 124 U/L (45-117); ALT/SGPT 19 U/L (12-78); ANION GAP 8 MEQ/L (8-16); AST/SGOT 19 U/L (15-37); BILIRUBIN,TOTAL 0.8 MG/DL (0.2-1.0); BLOOD UREA NITROGEN 16 MG/DL (7-18); CALCIUM LEVEL 7.9 MG/DL (8.8-10.2); CARBON DIOXIDE LEVEL 24 MEQ/L (21-32); CHLORIDE LEVEL 102 MEQ/L (98-107); CREATININE FOR GFR 0.63 MG/DL (0.70-1.30); GLOMERULAR FILTRATION RATE > 60.0 (>49); GLUCOSE, FASTING 214 MG/DL (80-110); MAGNESIUM LEVEL 2.1 MG/DL (1.8-2.4); POTASSIUM SERUM 3.8 MEQ/L (3.5-5.1); SODIUM LEVEL 134 MEQ/L (136-145)
[2016-06-14 06:01] LABS: LARGE UNSTAINED CELL # 0.2 K/mm3 (0.0-0.4); LARGE UNSTAINED CELL % 1.1 % (0.0-4.0); LYMPH # 0.3 K/mm3 (1.5-4.5); MEAN CORPUSCULAR HEMOGLOBIN 24.2 pg (27.0-33.0); MEAN CORPUSCULAR HGB CONC 30.2 g/dl (32.0-36.5); MONO # 0.8 K/mm3 (0.0-0.8); MONO % 4.9 % (0.0-5.0); NEUTROPHILS # 14.2 K/mm3 (1.8-7.7); NEUTROPHILS % 91.9 % (36.0-66.0); PLATELET COUNT, AUTOMATED 319 k/mm3 (150-450); RED CELL DISTRIBUTION WIDTH 19.5 % (11.5-14.5); RETIC HEMOGLOBIN CONTENT CHr 25.7 PG (24-36); RETICULOCYTE ABSOLUTE ADVIA212 106 x10(9)/L (17-77); WHITE BLOOD COUNT 15.4 K/mm3 (4.0-10.0)
--- NOTE | 2016-06-14 08:21 | REP ---
Portable chest x-ray: Single view. History: Hypoxemia. Comparison chest x-ray is from June 13, 2016. Findings: EKG monitoring electrodes overlie the chest. Extensive interstitial edema versus infiltrate pattern persists throughout the lung troncoso. There is a little more interstitial disease today affecting the right upper lobe than was present on yesterday's radiograph. Findings are otherwise unchanged. Heart size is enlarged unchanged. Impression: Diffuse interstitial lung disease, edema versus infiltrate. More pronounced in the right upper lobe today. Signed by Joselito Tolbert MD 06/14/2016 08:27 A
[2016-06-14] MEDS: RANOLAZINE 500 MG ER TAB PO SCH ×2 (09:04→20:42)
[2016-06-14] MEDS: AZITHROMYCIN INJ 500 MG, VIAL MATE ADAPTER 1 EACH in D5W 250 ML IV SCH (09:04)
[2016-06-14] MEDS: SERTRALINE HCL 50 MG TAB PO SCH (09:05)
[2016-06-14] MEDS: PANTOPRAZOLE 40MG TAB (PROTONIX) PO SCH (09:05)
[2016-06-14] MEDS: ASPIRIN 81 MG ENTERIC TAB PO SCH (09:05)
[2016-06-14] MEDS ORDERED: FUROSEMIDE 20 MG/2 ML VIAL (J1940) IV ONE ×2 (10:15)
[2016-06-14 12:22] LABS: BASO # 0.1 K/mm3 (0.0-0.2); BASO % 0.3 % (0.0-1.0); EOS % 0.1 % (0.0-3.0); LARGE UNSTAINED CELL # 0.1 K/mm3 (0.0-0.4); LARGE UNSTAINED CELL % 0.4 % (0.0-4.0); LYMPH # 0.4 K/mm3 (1.5-4.5); LYMPH % 1.6 % (24.0-44.0); MEAN CORPUSCULAR HEMOGLOBIN 24.1 pg (27.0-33.0); MEAN CORPUSCULAR HGB CONC 29.9 g/dl (32.0-36.5); MEAN CORPUSCULAR VOLUME 80.6 fl (80.0-96.0); MONO # 0.6 K/mm3 (0.0-0.8); MONO % 2.9 % (0.0-5.0); NEUTROPHILS # 19.5 K/mm3 (1.8-7.7); NEUTROPHILS % 94.7 % (36.0-66.0); PLATELET COUNT, AUTOMATED 340 k/mm3 (150-450); RED CELL DISTRIBUTION WIDTH 20.9 % (11.5-14.5); WHITE BLOOD COUNT 20.6 K/mm3 (4.0-10.0)
[2016-06-14] MEDS ORDERED: GLUCOSE 4 GM CHEW TABLET PO PRN (13:00)
[2016-06-14] MEDS ORDERED: GLUCAGON FOR INJ 1 MG VIAL (J1610) SC PRN (13:00)
[2016-06-14] MEDS ORDERED: DEXTROSE 50% 50 ML SYRINGE IV PRN (13:00)
--- NOTE | 2016-06-14 13:22 | IPN ---
DATE: 06/14/2016 SUBJECTIVE: This is a 66-year-old male who was seen and examined at bedside. Overnight was switched from bilevel positive airway pressure (BiPAP) to nasal cannula. His diet was advanced from clear liquids to carbohydrate diet. This morning denies any chest pain, palpitations, fevers, chills, nausea, vomiting, diarrhea, constipation. Still reports shortness of breath with minimal amount of exertion, including leaning forward just to reach for his urinal. OBJECTIVE: VITAL SIGNS: Blood pressure 113/61, heart rate 76, respiration rate 24, respiration rate had been fluctuating at 13-26, pulse oximetry 90% on 30% FiO2, temperature 97.8. Intake and output last 24 hours: 2310 and 1050, +1260 in the last 24 hours. One bowel movement documented yesterday. GENERAL: Patient is sitting in bed, comfortable, no acute psychiatric distress. Had episodes of hypoxia down to as low as in the low 80s after just talking in full sentences. He is alert, awake, oriented times three. Otherwise pleasant and cooperative. HEENT: Normocephalic, atraumatic. Moist oral mucosa. NECK: Supple, trachea midline. No jugular venous distention (JVD). CHEST: Symmetric chest rise. Breath sounds with inspiratory crackles, more significant in bilateral lower lung bases. It is somewhat dull to percussion. HEART: Regular rate and rhythm, S1, S2 present. Could not appreciate any murmurs, rubs, or gallops. ABDOMEN: Soft, nontender, nondistended. Bowel sounds present. No guarding, no rebound. EXTREMITIES: There is clubbing of his nail bed. No pedal edema. Pedal pulses present bilaterally. LABORATORY DATA: WBC 15.4, increased from yesterday at 7.6, hemoglobin 7.1, hematocrit 23.6, platelets 316, neutrophil 91.9. Sodium 131, potassium 3.8, chloride 102, carbon dioxide 24, BUN 16, creatinine 0.62, glucose 214, calcium 7.9, iron 15, TIBC 346 , transferrin 4.3, ferritin 349, CRP 9.5. Urine culture no growth. Methicillin-resistant Staphylococcus aureus (MRSA) screen negative. Respiratory syncytial virus (RSV) panel negative. Blood cultures negative after 48 hours. Chest xray still diffuse interstitial lungs with right lobe worse today. IMPRESSION AND PLAN: Mr. Velazquez is a 66-year-old male with past medical history of atrial fibrillation, tobacco abuse, admitted for respiratory failure. 1. Dyspnea and hypoxia. Unfortunately his condition appears to be somewhat worse today based on CXR and physical exam. Definitive cause for his worsening symptoms remains unclear. Could be secondary interstitial fibrosis, pneumonia, amiodarone induced toxicity, chemical pneumonitis, acute respiratory distress syndrome (ARDS). Amiodarone is still held at this time. Continue vancomycin and meropenem, day #4 of antibiotics. Azithromycin was started this morning for possible atypical coverage. Case discussed with Dr. Corral. Greatly appreciate Dr. Corral's assistance. Will transfuse him with one unit today with Lasix prior and post-transfusion for worsening interstitial edema. Will consult Dr. Muniz for further assistance as well. 2. Anemia. Iron studies showed anemia of chronic disease. Could be secondary to his multiple medical conditions. Stool occult has been ordered, still waiting for result. 3. Atrial fibrillation, currently rate is controlled. Amiodarone is held due to reason mentioned in #1. He is status post ablation March 2016. As he does not have any gross evidence of bleeding at this time, will continue Xarelto. 4. Type 2 diabetes. Continue insulin sliding scale. Restarted on carbohydrate consistency diet yesterday. Will change his insulin to before food and nightly. 5. Hypertension. Blood pressure is more on the low end. Continue holding lisinopril and Norvasc. 6. Hyperlipidemia. Continue home dose Lipitor. 7. History of coronary artery disease (CAD) status post stent 2016. Continue aspirin and Lipitor. 8. History of anxiety. Continue home dose Zoloft 50 mg by mouth daily. 9. Gastroesophageal reflux disease (GERD). Continue Protonix 40 mg by mouth daily. 10. Deep venous thrombosis (DVT) prophylaxis. Sequential compression device (SCD), thromboembolism deterrents (TEDs), and Xarelto for atrial fibrillation. My preceptor for this patient encounter was Dr. Mian Garza. The preceptor was physically present in the building during the encounter and was fully available. As needed, all aspects of the patient interview, examination, medical decision making process, and medical care plan development were reviewed and approved by the preceptor. The preceptor is aware and concurs with the plan as stated in the body of this note and will attest to such by his/her cosignature. TABATHA
[2016-06-14 14:21] LABS: CONTROL LINE INT CTR LINE PRESENT; HIV SCRN NEGATIVE (NEGATIVE); HIV SCRN1 NEGATIVE (NEGATIVE)
[2016-06-14 17:32] LABS: ABG BASE EXCESS -3.5 (-2.0-2.0); ABG HCO3 20.1 MEQ/L (22.0-26.0); ABG PARTIAL PRESSURE CO2 30.7 mmHg (35.0-45.0); ABG PARTIAL PRESSURE O2 52.4 mmHg (75.0-100.0); ABG STANDARD HCO3 21.4 MEQ/L (22.0-26.0); ABG pH (ARTERIAL) 7.434 UNITS (7.350-7.450)
[2016-06-14] MEDS: RIVAROXABAN 20 MG TAB (XARELTO) PO SCH (20:42)
[2016-06-14] MEDS: ATORVASTATIN 20 MG TAB PO SCH (20:42)
[2016-06-14] MEDS: IPRATROPIUM 0.5MG/ALBUTEROL 2.5MG INH SOL UD 3ML (DUONEB)(J7620) NEB PRN (23:29)
[2016-06-15] VITALS (7 sets, daily range): BP systolic 97–119; BP diastolic 56–62
[2016-06-15] MEDS: methylPREDNISolone INJ 125 MG/2 ML VIAL (J2930) IV SCH ×3 (00:01→17:28)
[2016-06-15] MEDS: IPRATROPIUM 0.5MG/ALBUTEROL 2.5MG INH SOL UD 3ML (DUONEB)(J7620) NEB SCH ×4 (01:38→19:11)
[2016-06-15] MEDS: IPRATROPIUM 0.5MG/ALBUTEROL 2.5MG INH SOL UD 3ML (DUONEB)(J7620) NEB PRN (04:28)
[2016-06-15] MEDS: MEROPENEM INJ 1 GM in D5W MINI-BAG PLUS 100 ML IV SCH (04:45)
[2016-06-15] MEDS: VANCOMYCIN HCL 1,000 MG, VIAL MATE ADAPTER 1 EACH in D5W 250 ML IV SCH (04:45)
[2016-06-15 06:00] LABS: LARGE UNSTAINED CELL # 0.2 K/mm3 (0.0-0.4); LARGE UNSTAINED CELL % 1.1 % (0.0-4.0); LYMPH # 0.3 K/mm3 (1.5-4.5); LYMPH % 2.1 % (24.0-44.0); MEAN CORPUSCULAR HEMOGLOBIN 25.1 pg (27.0-33.0); MEAN CORPUSCULAR HGB CONC 31.4 g/dl (32.0-36.5); MEAN CORPUSCULAR VOLUME 80.1 fl (80.0-96.0); MONO # 0.7 K/mm3 (0.0-0.8); MONO % 4.5 % (0.0-5.0); NEUTROPHILS # 14.2 K/mm3 (1.8-7.7); NEUTROPHILS % 92.3 % (36.0-66.0); PLATELET COUNT, AUTOMATED 300 k/mm3 (150-450); RED CELL DISTRIBUTION WIDTH 18.9 % (11.5-14.5); WHITE BLOOD COUNT 15.4 K/mm3 (4.0-10.0)
[2016-06-15] MEDS: SLF 3 ML SYR IV SCH ×3 (06:00→22:19)
[2016-06-15 06:12] LABS: ALBUMIN/GLOBULIN RATIO 0.51 (1.00-1.93); ALKALINE PHOSPHATASE 141 U/L (45-117); ALT/SGPT 26 U/L (12-78); ANION GAP 8 MEQ/L (8-16); AST/SGOT 21 U/L (15-37); BILIRUBIN,TOTAL 0.7 MG/DL (0.2-1.0); BLOOD UREA NITROGEN 21 MG/DL (7-18); CALCIUM LEVEL 8.4 MG/DL (8.8-10.2); CARBON DIOXIDE LEVEL 25 MEQ/L (21-32); CHLORIDE LEVEL 101 MEQ/L (98-107); GLOMERULAR FILTRATION RATE > 60.0 (>49); GLUCOSE, FASTING 300 MG/DL (80-110); POTASSIUM SERUM 4.4 MEQ/L (3.5-5.1); SODIUM LEVEL 134 MEQ/L (136-145); TOTAL PROTEIN 5.9 GM/DL (6.4-8.2)
[2016-06-15] MEDS: AZITHROMYCIN INJ 500 MG, VIAL MATE ADAPTER 1 EACH in D5W 250 ML IV SCH (08:33)
[2016-06-15] MEDS: PANTOPRAZOLE 40MG TAB (PROTONIX) PO SCH (08:33)
[2016-06-15] MEDS: SERTRALINE HCL 50 MG TAB PO SCH (08:33)
[2016-06-15] MEDS: HumaLOG INSULIN (NovoLOG) PER UNIT SC SCH ×4 (08:33→20:19)
[2016-06-15] MEDS: ASPIRIN 81 MG ENTERIC TAB PO SCH (08:33)
--- NOTE | 2016-06-15 08:33 | CR ---
DATE OF CONSULTATION: 06/14/2016 REASON FOR CONSULTATION: Respiratory failure, questionable pneumonia. HISTORY OF PRESENT ILLNESS: Mr. Velazquez is a 66-year-old gentleman with a previous history of chronic obstructive pulmonary disease (COPD), coronary artery disease and atrial fibrillation status post ablation recently in March 2016 and recently started on amiodarone. The patient had been complaining of shortness of breath for over 2 weeks that had been progressively getting worse. He went to the emergency room in [place] and was noted to be in hypoxic respiratory failure and therefore transferred to [facility] for further care. The patient also had some chest tightness on the day prior to admission which had resolved. The pain was worse with activities. He denied having any fever or chills. He stated he had some cough which was mostly nonproductive. He had no nausea, vomiting, diarrhea, abdominal pain. He was complaining of generalized weakness. At [facility], he was started on O2 up to 80% and then BiPAP. He was started on broad-spectrum antibiotics with IV vancomycin, meropenem and Zithromax. The patient also started on IV Solu-Medrol and amiodarone was discontinued as there was a concern that it could have been the culprit. The patient is a relatively stable otherwise except for severe respiratory failure. He has known no other complaints. PAST MEDICAL HISTORY: Chronic obstructive pulmonary disease (COPD), quit smoking 7 years ago. Coronary artery disease status post stenting in 2012 at [facility]. Atrial fibrillation status post ablation and amiodarone therapy for the past 2 months. Hypertension. Anxiety. Diabete, non-insulin dependent. PAST SURGICAL HISTORY: Cardiac ablation. Left hip surgery. Carpal tunnel on the left. ALLERGIES: No known drug allergies. SOCIAL HISTORY: Quit smoking 7 years ago. He does not drink. He lives alone. MEDICATIONS: - vancomycin 1 gram IV every 8 hours - Zithromax 500 mg IV every 24 hours - meropenem 1 gram IV every 8 hours - aspirin 81 mg by mouth daily - Protonix 40 mg by mouth daily - Zoloft 50 mg daily - Lipitor 20 mg by mouth daily at bedtime - Ranexa 1000 mg by mouth twice daily - Xarelto 20 mg by mouth daily at bedtime - albuterol/Atrovent nebulizers every 6 hours - hydroxyzine 10 mg by mouth three times daily as needed anxiety - Tylenol as needed 650 mg LABORATORY DATA: On admission, his white count was 13.1. Today was 20.6, hemoglobin 7.8, hematocrit 26.1, platelets 340, 94% neutrophils, 2% lymphocytes, 2% monocytes. Sodium 134, potassium 3.8, chloride 102, bicarb 24, BUN 16, creatinine 0.63, glucose 214, calcium 7.9, magnesium 2.1, iron 15, TIBC 346, iron saturation 4.3%, ferritin 348. AST 19, ALT 19, alk phos 124, CRP 9.5, total protein 6, albumin 2. Blood cultures two sets on 06/11 were negative. Respiratory panel is negative by PCR for influenza, RSV and many other pathogens. Methicillin-resistant staphylococcus aureus (MRSA) screen was negative. Urine culture was negative. Sputum had few white cells, moderate epithelial cells. Few gram positive cocci culture is pending. This culture was done on 06/14 after he had been on broad-spectrum antibiotics for 3 days. Chest x-ray on 06/14 shows diffuse interstitial lung disease, edema versus infiltrate more pronounced in the right upper lobe. CT angiogram shows no evidence of pulmonary artery embolus, diffuse interstitial infiltrates with cystic changes noticed. Differential diagnosis includes chronic interstitial fibrosis. There is also a noncalcified 7 mm pulmonary nodule in the right lower lobe. Recommend follow-up chest CT in the next 3 months. On physical exam, he is a healthy looking older gentleman in moderate respiratory discomfort with a BiPAP mask but otherwise looks pretty good in spite of being significantly hypoxic. He is able to talk without significant dyspnea which is to suggest this is more of a chronic respiratory process than an acute one. He has been afebrile throughout the admission. Temperature is 98.2, pulse 64, respirations 24, blood pressure 102/56, O2 sat 88% on BiPAP with an FIO2 of 45%. Heart: Normal S1, S2 with no murmurs appreciated. Lungs: Crackles at the bases, inspiratory mostly dry crackles. No wheezes or rhonchi. Abdomen: Soft, nontender. No hepatosplenomegaly. Bowel sounds are normal. Extremities: Clubbing of the nail beds but no edema. Dorsalis pedis pulses are present. Skin: Normal. Neurologic exam. Alert and oriented times three. Moves all extremities. Exam was limited due to significant shortness of breath. IMPRESSION: This is a 66-year-old gentleman with a previous history of chronic obstructive pulmonary disease (COPD), recent atrial fibrillation ablation and amiodarone treatment who presents with respiratory failure with severe hypoxia. ABG on admission: pH was 7.481, pCO2 26, pO2 60 with an O2 sat of 89%. Chest CT is suggestive of interstitial lung disease with fibrosis/pneumonitis, possibly edema but no lobar pneumonia. The patient does not have symptoms suggestive of acute pneumonic process. He does not have a fever. He has a cough which is mostly nonproductive at most that might be an atypical pneumonia that could have exacerbated his chronic symptoms of COPD and possibly interstitial lung disease. Amiodarone toxicity usually happens after months of therapy with accumulative dose of amiodarone although anecdotal reports of toxicity has happened after a couple months of treatment. Amiodarone has been discontinued. PLAN: Discontinue IV vancomycin. This is not MRSA pneumonia. He does not have a productive cough, hemoptysis, fever or any CT findings to suggest a necrotizing pneumonia. I would even consider discontinuing meropenem as his blood cultures are negative and clinically he does not seem like he has healthcare associated pneumonia. I suspect at most it will be an atypical if it is infectious. I would only continue with Zithromax for antibiotic coverage. HIV testing has been done and was negative. Urine Legionella antigen has been sent. Pneumococcal antigen is pending. Continue IV Zithromax. Discontinue IV meropenem. Discontinue IV vancomycin.
[2016-06-15] MEDS: RANOLAZINE 500 MG ER TAB PO SCH ×2 (09:19→20:19)
--- NOTE | 2016-06-15 09:35 | REP ---
Portable chest x-ray: Single view. History: Hypoxemia. Comparison chest x-ray June 14, 2016. Findings: Cardiomegaly is again observed. EKG monitoring electrodes are seen. There is a diffuse interstitial lung disease pattern throughout the lung troncoso unchanged from yesterday's study. Signed by Joselito Tolbert MD 06/15/2016 09:40 A
[2016-06-15] MEDS: FUROSEMIDE 40 MG/4 ML VIAL (J1940) IV SCH ×4 (10:25→22:19)
[2016-06-15] MEDS ORDERED: ceFAZolin SOD 1 GM in D5W MINI-BAG PLUS 50 ML IV ONE (13:00)
[2016-06-15] MEDS ORDERED: MUPIROCIN 2% OINT 22 GM TUBE TOP ONE (13:00)
--- NOTE | 2016-06-15 14:08 | CR ---
DATE OF CONSULTATION: 06/15/2016 The patient is seen at the request of Dr. Corral for increasing shortness of breath and probable pulmonary interstitial lung disease. HISTORY OF PRESENT ILLNESS: The patient is a 66-year-old white male whose symptomatology first started upon close recollection around last January when he noticed that he started to become short of breath taking wood in. The shortness of breath continued to get worse until he sought medical attention at [facility] on 06/11/2016 where he was transferred here for increasing shortness of breath and hypoxia. His shortness of breath is such that now in the last two weeks that just even rolling over in bed he would get short of breath. He finally sought medical attention because there was no way he could bring his wood in to heat his home and he was getting afraid that he would not be able to have any heat. He has atrial fibrillation and was seen in [facility] in March where he underwent an ablation. He was also placed on Xarelto and amiodarone. He has had a cough, but without much sputum production. That sputum he raises he does not actually expectorate and so he does not know what color it is. He denies fever or shaking chills, although he has been shaky ever since March when he states that he cannot even write his name very well anymore without shaking. This is not associated with chills or fever. He states he has had a 40 pound weight loss since January, which has accelerated since his admission to [facility] for his ablation. He states he just does not have any appetite. He has no true dysphagia and food transits his esophagus without getting stuck. He complains of two types of chest pain. One he has had for many, many years over his left side, which is precordial, dull and pressure-like in quality. He states he has had coronary artery disease for a very long time. The other pain is much more recent in the last month or so, which is sharp and like needles in his right upper chest. This pain is intensified with taking a deep breath. PAST MEDICAL ILLNESSES: 1. The above atrial fibrillation. 2. Coronary artery disease. 3. Chronic obstructive pulmonary disease (COPD). 4. Hypertension. 5. Anxiety. 6. Diabetes. PAST SURGICAL HISTORY: Carpal tunnel repair on his left hand and hip repair left hip in the remote past. No thoracic or abdominal surgery. ALLERGIES: None. MEDICATIONS AT HOME (included): - albuterol 2 puffs as needed - amiodarone 200 mg daily - amlodipine 2.5 mg daily - aspirin 81 mg daily - atorvastatin 20 mg daily - hydroxyzine 10 mg three times a day as needed anxiety - lisinopril 20 mg at bedtime - metformin 500 mg twice a day - pantoprazole 40 mg daily - Ranexa 1000 mg twice a day - Xarelto 20 mg at bedtime - Sertraline 50 mg daily HABITS: He smoked about 3/4 to 1 pack a day up until 7 years ago. He started at the age of 27, giving him an approximate pack year history of 30 years. He had an alcoholic problem, but stopped in 2000. He has not drunk since. Exposures - he used to have a cat, but he had to put her down. No birds or dogs. No exposure to tuberculosis. FAMILY HISTORY: Mother of a stroke. His father is estranged and he does not know where he is. He has one adopted child who is with his in [place]. TRAVEL HISTORY: To be obtained at a later time. REVIEW OF SYSTEMS: CONSTITUTIONAL: See history of present illness (HPI). Significant for the 35 to 40 pound weight loss since the Fall. EYES: Without diplopia. Without amaurosis fugax. Without apparent jaundice. Does wear reading glasses. NOSE: Without epistaxis. MOUTH: Has some teeth on his bottom jaw, not on his top. He does not wear dentures. RESPIRATORY: See HPI. CARDIAC: See HPI. He does not have orthopnea, but he does have paroxysmal nocturnal dyspnea when he turns over in bed. This is probably secondary to exertion. Without peripheral edema or intermittent claudication. He has known coronary artery disease and is status post cardiac stenting procedure, but he has not had a true myocardial infarction. GI: With diarrhea the last couple of weeks. He states the diarrhea actually started when he was in [facility]. He also noted that the nurses would dress in isolation gowns. He does not know if he was given antibiotics and does not know if he had Clostridium difficile while at [facility]. Occasional constipation. No melena. No hematochezia. Without nausea and vomiting or abdominal pain. No hematemesis. : Without hematuria or dysuria. Without renal stones. ENDOCRINE: Has diabetes. No thyroid disease. LYMPHATICS: Without lumps and bumps in his neck, axilla or groin that he has noted. HEMATOLOGIC: With prolonged bleeding times and easy bruisability while on the Xarelto. NEUROLOGIC: Without paresthesias, paralyses or seizures. He does state that he has increasing malaise and is having trouble with fine motor coordination to write his name. PSYCHIATRIC: With anxiety. Without pathologic depressions or psychoses. PHYSICAL EXAMINATION: Well developed, well nourished, white male sitting in a chair who gets short of breath just talking to me on 3 liters high flow cannula. VITAL SIGNS: Temperature is 97.8, heart rate is 77 in a sinus rhythm, respiratory rate 22 without the use of accessory muscles. Blood pressure 119/59. He is 92% saturated on 3 liters high flow nasal cannula. HEAD: Normocephalic. EYES: Pupils equal, round and reactive to light. Extraocular movements intact. Sclerae nonicteric. Nose without deformity. Mouth shows his mucous membranes to be pink and moist. Lips and commissures without lesions. There is no thrush. He is edentulous on the upper plate and a few remaining teeth in the lower. NECK: Supple. There is no jugular venous distention. No subcutaneous emphysema. Trachea is midline. There is no lymphadenopathy or thyromegaly. He has 2+ carotid upstrokes. I cannot appreciate murmurs with the high flow oxygen. LUNGS: Show percussion notes are full to the diaphragm. He has inspiratory and expiratory crackles, particularly in the lower lobes. These occur throughout all of inspiration and are fine and Velcro-like. He has some scattered coarse rhonchi and these do not clear with coughing. CARDIAC EXAM: Shows a systolic murmur heard best at the left lower sternal border. It does not radiate to the carotids as far as I can tell. I cannot feel his PMI. S1, S2 are normal. He is in a regular rhythm. ABDOMEN: Soft. Nontender. Bowel sounds are positive. There is no hepatomegaly. No costovertebral angle (CVA) tenderness. I hear no renal or aortic bruits. Bowel sounds are positive. EXTREMITIES: Show no pretibial edema. No calf tenderness. No differential swelling of the upper extremities. SKIN: Warm, dry and perfused. He does have a cyanotic look to his skin however. There is no clubbing. NEUROLOGIC: Shows II-XII intact along with gross motor and gross sensation intact. Gait is not tested. PSYCHIATRIC: Shows him to be awake, alert, and oriented times three with appropriate mood and affect and conversational. INVESTIGATIONS: His white count today is 15.4 with a hemoglobin and hematocrit of 8.4 and 26.6 which has been stable throughout his admission. Platelet count is 300. Red cell indices show a marginal microcytosis. Differential shows 92% neutrophils, 2% lymphocytes, 4% monocytes. There are no immature forms and no toxic granulations. Chemistries today show a sodium of 134 with the remainder of the electrolytes normal. His total CO2 is normal at 25. BUN and creatinine are 24 and 0.6 respectively. Glucose is 300 with a calcium of 8.4 and a corresponding albumin of 2.0. AST and ALT are normal. Blood gases yesterday show a pH of 7.43, pCO2 30, and pO2 of 52 on the above nasal cannula. Base excess is -3.5. He is on vancomycin and his vancomycin trough on 06/13/2016 was 16.7. His rheumatoid factor is less than 10. His KEREN screen is negative, reported back on 06/13/2016. HIV antibodies and antigens are negative. His chest CT done on 06/12/2016 shows severe honeycombing of the left upper and lower lobes with ground glass appearances in both of those. His right upper lobe is less effected, but still has some ground glass appearances. The lower lobe again on the right side shows severe honeycombing along with ground glass appearances. There is no pericardial effusion. I do not see any significant lymphadenopathy in the mediastinum. The liver is free of lesions and the adrenals look a little generous. I do not see a discrete mass in either adrenal. His chest x-ray today shows a reticular pattern, which is worse today than yesterday. It looks as though the right upper lobe is still less involved than the left upper lobe and the lower lobes. IMPRESSION: 1. Interstitial lung disease, question idiopathic pulmonary fibrosis. 2. Interstitial lung disease possibly secondary to amiodarone. 3. Hypertension. 4. Diabetes. 5. Chronic obstructive pulmonary disease. 6. Hypoxia. 7. History of atrial fibrillation, on anticoagulants and amiodarone. 8. Anxiety. 9. Anemia, marginally microcytic. PLAN AND DISCUSSION: Mr. Mcdonald has some type of interstitial lung disease which is getting worse. He has the classic slow insidious onset of shortness of breath which has accelerated since March when he was placed on amiodarone. Nonetheless, he started to notice shortness of breath last January when taking in his wood. I am surprised that he has had anemia as he is so hypoxic. It is probably the anemia of chronic disease. At this point in time, his x-ray is getting worse and we are going to need to establish a definitive diagnosis. I will therefore take him to the operating room tomorrow where we will undertake a lung biopsy, both of the lower and upper lobes. I am not sure whether he is going to tolerate one lung anesthesia and I have prepared him for a formal incision. His Xarelto was discontinued last night and it should be safe for me to operate on him tomorrow. However, anesthesia will not be able to place an epidural. If I wait until Monday, we won't get a diagnosis back until over the weekend, which is too long to wait. Should he have major pain control issues, will put an epidural in on Monday. 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 This could include having to place a tracheostomy next week. He is presently being treated with Solu-Medrol as an anti-inflammatory steroid. He is also on azithromycin. Vancomycin was discontinued today as was the meropenem. Dr. Muniz of infectious disease is also continue the Zithromax. This may be acute interstitial pneumonia, but I think that the history mitigates against that as I think historically this has been going on for at least five months. The patient is also aware of the risks of mortality, bleeding, infection and pneumonia after an operation. He understands and is willing to proceed.
[2016-06-15] MEDS: ATORVASTATIN 20 MG TAB PO SCH (20:17)
[2016-06-16] VITALS (10 sets, daily range): BP systolic 99–129; BP diastolic 59–67
[2016-06-16 00:06] LABS: ORGANISM ID Not indicated. (.); SPECIMEN SOURCE Urine (.)
[2016-06-16] MEDS: methylPREDNISolone INJ 125 MG/2 ML VIAL (J2930) IV SCH ×4 (00:19→20:58)
[2016-06-16] MEDS: IPRATROPIUM 0.5MG/ALBUTEROL 2.5MG INH SOL UD 3ML (DUONEB)(J7620) NEB SCH ×4 (01:18→19:56)
[2016-06-16 04:55] LABS: BASO % 0.3 % (0.0-1.0); EOS % 0.1 % (0.0-3.0); LARGE UNSTAINED CELL # 0.1 K/mm3 (0.0-0.4); LARGE UNSTAINED CELL % 0.7 % (0.0-4.0); LYMPH # 0.5 K/mm3 (1.5-4.5); LYMPH % 2.9 % (24.0-44.0); MEAN CORPUSCULAR HEMOGLOBIN 25.5 pg (27.0-33.0); MEAN CORPUSCULAR HGB CONC 31.9 g/dl (32.0-36.5); MEAN CORPUSCULAR VOLUME 79.9 fl (80.0-96.0); MONO # 0.7 K/mm3 (0.0-0.8); MONO % 5.1 % (0.0-5.0); NEUTROPHILS # 11.7 K/mm3 (1.8-7.7); NEUTROPHILS % 90.9 % (36.0-66.0); PLATELET COUNT, AUTOMATED 301 k/mm3 (150-450); RED CELL DISTRIBUTION WIDTH 20.1 % (11.5-14.5); WHITE BLOOD COUNT 12.8 K/mm3 (4.0-10.0)
[2016-06-16 05:14] LABS: ABG BASE EXCESS 5.7 (-2.0-2.0); ABG HCO3 29.2 MEQ/L (22.0-26.0); ABG STANDARD HCO3 29.3 MEQ/L (22.0-26.0); ABG TOTAL CO2 30.3 MEQ/L (23.0-31.0); ABG pH (ARTERIAL) 7.503 UNITS (7.350-7.450)
[2016-06-16 05:15] LABS: ALBUMIN/GLOBULIN RATIO 0.49 (1.00-1.93); ALKALINE PHOSPHATASE 136 U/L (45-117); ALT/SGPT 28 U/L (12-78); ANION GAP 6 MEQ/L (8-16); AST/SGOT 20 U/L (15-37); BILIRUBIN,TOTAL 0.8 MG/DL (0.2-1.0); BLOOD UREA NITROGEN 28 MG/DL (7-18); CALCIUM LEVEL 7.9 MG/DL (8.8-10.2); CARBON DIOXIDE LEVEL 31 MEQ/L (21-32); CHLORIDE LEVEL 98 MEQ/L (98-107); CREATININE FOR GFR 0.63 MG/DL (0.70-1.30); GLOMERULAR FILTRATION RATE > 60.0 (>49); GLUCOSE, FASTING 260 MG/DL (80-110); MAGNESIUM LEVEL 1.8 MG/DL (1.8-2.4); POTASSIUM SERUM 3.5 MEQ/L (3.5-5.1); SODIUM LEVEL 135 MEQ/L (136-145); TOTAL PROTEIN 6.1 GM/DL (6.4-8.2)
[2016-06-16] MEDS ORDERED: ONDANSETRON 4MG/2ML VIAL (J2405) IV PRN (06:00)
[2016-06-16 06:03] LABS: INR 1.32
[2016-06-16] MEDS: SLF 3 ML SYR IV SCH ×3 (06:05→21:20)
[2016-06-16] MEDS ORDERED: MUPIROCIN 2% OINT 22 GM TUBE TOP ONE (07:00)
[2016-06-16] MEDS ORDERED: ceFAZolin SOD 1 GM in D5W MINI-BAG PLUS 50 ML IV ONE (07:00)
--- NOTE | 2016-06-16 07:54 | REP ---
Clinical: Hypoxemia. Comparison: Multiple examinations dating through 06/13/2016. Findings: Diffuse interstitial infiltrates are again appreciated findings suggest acute on chronic changes. No definite effusion. No pneumothorax. Mediastinum and cardiac silhouette are within normal limits and stable. Skeletal structures intact. Impression: Diffuse interstitial infiltrates similar to prior examination. Signed by Timothy Gonzalez MD 06/16/2016 07:46 A
[2016-06-16] MEDS: AZITHROMYCIN INJ 500 MG, VIAL MATE ADAPTER 1 EACH in D5W 250 ML IV SCH (08:05)
[2016-06-16] MEDS: SERTRALINE HCL 50 MG TAB PO SCH ×2 (08:06→11:10)
[2016-06-16] MEDS: ASPIRIN 81 MG ENTERIC TAB PO SCH ×2 (08:06→11:10)
[2016-06-16] MEDS: HumaLOG INSULIN (NovoLOG) PER UNIT SC SCH ×4 (08:06→21:19)
[2016-06-16] MEDS: PANTOPRAZOLE 40MG TAB (PROTONIX) PO SCH ×2 (08:06→11:10)
[2016-06-16] MEDS: RANOLAZINE 500 MG ER TAB PO SCH ×3 (08:06→21:18)
[2016-06-16] MEDS: LEVEMIR (INSULIN DETEMIR) 1 UNITS/0.01ML SC SCH ×2 (08:06→11:09)
[2016-06-16 09:14] LABS: ABG BASE EXCESS 5.1 (-2.0-2.0); ABG HCO3 29.9 MEQ/L (22.0-26.0); ABG PARTIAL PRESSURE CO2 45.9 mmHg (35.0-45.0); ABG PARTIAL PRESSURE O2 68.1 mmHg (75.0-100.0); ABG TOTAL CO2 31.3 MEQ/L (23.0-31.0); ABG pH (ARTERIAL) 7.432 UNITS (7.350-7.450)
[2016-06-16] MEDS: FUROSEMIDE 40 MG/4 ML VIAL (J1940) IV SCH ×4 (11:09→22:28)
[2016-06-16] MEDS: KCL 10MEQ IN 100ML SWI (KRUN) 10 MEQ in APPROPRIATE DILUENT 1 EA IV SCH ×6 (11:09→13:16)
[2016-06-16] MEDS: HEPARIN SOD (PORCINE) 5000 UNITS/ML VIAL SQ SCH ×2 (14:39→21:19)
--- NOTE | 2016-06-16 16:03 | IPN ---
DATE OF VISIT: 06/15/2016 SUBJECTIVE: This is a 66-year-old male who was seen and examined in intensive care unit (ICU) room. Overnight, he required to be back on his continuous positive airway pressure (CPAP). Still complains of breathing difficulty with every slight movement or prolonged talking. No fevers, chills, chest pain, palpitations, diarrhea, constipation. OBJECTIVE: VITAL SIGNS: Blood pressure 117/59, heart rate 73, temperature 98.5, respiration rate 22, 88% on 30 nasal canula. GENERAL: Patient is sitting in bed, comfortable, no acute psychiatric distress, however, he gets easily tired and hypoxic with simply talking. HEENT: Normocephalic, atraumatic. Moist oral mucosa. NECK: Supple, trachea midline. No jugular venous distention (JVD). CHEST: Symmetric chest rise. LUNGS: With persistent inspiratory crackles. Dullness to percussion. HEART: Regular rate and rhythm, S1, S2 normal present. Could not appreciate any murmurs, rubs, or gallops. ABDOMEN: Soft, nontender, nondistended. Bowel sounds present. No guarding, no rebound. EXTREMITIES: No pedal edema. Pedal pulses present bilaterally. LABORATORY DATA: WBC 15.4, hemoglobin 8.4, hematocrit 26.6, platelets 300. Sodium 134, potassium 4.4, chloride 101, carbon dioxide 25, BUN 21, creatinine 0.6, glucose 300, calcium 8.4 magnesium 2, AST 21, ALT 26, alkaline phosphatase 141, CRP 6.42, Strep pneumonia antigen and Legionella are pending. HIV status negative. KEREN negative, rheumatoid factor negative. Chest x-ray history shows worsening finding compared to yesterday. IMPRESSION AND PLAN: Mr. Velazquez is a 66-year-old male with past medical history of atrial fibrillation, tobacco abuse, admitted for respiratory failure. 1. Acute Hypoxic Respiratory Failure requiring 30% FIO2. His condition continues to be worse today compared to yesterday. Currently, the etiology of his underlying lung disease remains unclear. There is plan for a biopsy tomorrow with Dr. Gimenez, and Xarelto has been held. Currently, he is being empirically covered for atypical coverage. Will be on day [address] of antibiotics. Greatly appreciate Dr. Corral's, Dr. Muniz's, and Dr. Gimenez's assistance. Continue Solu-Medrol 60 mg every 8 hours for now. 2. Atrial fibrillation, rate controlled. Xarelto is held at this time due to pending biopsy tomorrow. 3. Anemia. Status-post a total of 2 units since admission. Currently, no gross evidence of bleeding. 4. Type 2 diabetes. On insulin sliding scale. 5. Hyperlipidemia. Continue home dose Lipitor. 6. History of anxiety. Continue Zoloft 50 mg by mouth daily. 7. History of coronary artery disease (CAD) status post stent 2016. On aspirin and Lipitor. Not on beta nasir, could be secondary to his underlying lung problems. 10. Deep venous thrombosis (DVT) prophylaxis. Sequential compression device (SCD), thromboembolism deterrents (TEDs). Xarelto is currently being held due to pending surgery. My preceptor for this patient encounter was Dr. Mian Garza. The preceptor was physically present in the building during the encounter and was fully available. As needed, all aspects of the patient interview, examination, medical decision making process, and medical care plan development were reviewed and approved by the preceptor. The preceptor is aware and concurs with the plan as stated in the body of this note and will attest to such by his/her cosignature. TABATHA
--- NOTE | 2016-06-16 17:14 | IPN ---
DATE: 06/16/2016 SUBJECTIVE: Mr. Velazquez is relatively stable. He still has a cough which is mostly nonproductive. His shortness of breath is stable. He was seen in consultation by Dr. Gimenez regarding possibility of a lung biopsy. CT shows severe honeycombing of left upper and lower lobes with ground-glass appearances. Right upper lobe is less affected than the lower lobes. Dr. Gimenez felt this is related to interstitial lung disease, possibly idiopathic pulmonary fibrosis versus amiodarone toxicity. LABORATORY DATA: White count is 12.8 on steroid, hemoglobin 8.7, hematocrit 27.2. The patient was transfused as his hemoglobin dropped to 7.1, platelets 301. Sodium 135, potassium 3.5, chloride 98, bicarb 31, BUN 28, creatinine 0.6, glucose 260, calcium 7.9, AST 20, ALT 28, alk phos 136. CRP is 4.88 down from 9.5. MICROBIOLOGY: Sputum culture had yeastlike organism. Urine culture was negative. MRSA screen was negative. Respiratory panel was negative. Blood cultures two sets were negative. MEDICATIONS: - Solu-Medrol 250 mg IV every six hours - antibiotics were discontinued IMPRESSION: Interstitial lung disease. Possibility of pulmonary fibrosis versus amiodarone toxicity. Infectious etiology is very unlikely. Urine Legionella antigen and pneumococcus antigen were also negative. PLAN: Infectious disease signing off. Antibiotics have been discontinued. Thank you for consultation.
[2016-06-16 18:15] LABS: ANION GAP 9 MEQ/L (8-16); BLOOD UREA NITROGEN 29 MG/DL (7-18); CALCIUM LEVEL 8.1 MG/DL (8.8-10.2); CARBON DIOXIDE LEVEL 33 MEQ/L (21-32); CHLORIDE LEVEL 97 MEQ/L (98-107); CREATININE FOR GFR 0.65 MG/DL (0.70-1.30); GLOMERULAR FILTRATION RATE > 60.0 (>49); GLUCOSE, FASTING 216 MG/DL (80-110); POTASSIUM SERUM 3.8 MEQ/L (3.5-5.1); SODIUM LEVEL 139 MEQ/L (136-145)
--- NOTE | 2016-06-16 21:16 | IPN ---
DATE: 06/16/2016 This is a 66-year-old male who was seen and examined in intensive care unit (ICU ) room. Overnight, he, unfortunately, continued to require high oxygen supplementation. Still feels winded easily with just barely talking. Still has a dry cough. No chest pain. Shortness of breath persists with any sort of activity or just simply speaking. OBJECTIVE: VITAL SIGNS: Blood pressure 126/66, heart rate 88, respiratory rate 24, pulse oximetry 96% on Comfort Sahil 35. GENERAL: Patient is sitting in bed comfortable in no acute distress respiratory distress. He still gets hypoxic with simply answering in 1-2 words. HEENT: Normocephalic, atraumatic, currently wearing continuous positive airway pressure (CPAP). NECK: Supple, trachea midline, no jugular venous distention (JVD). CHEST: Symmetric chest rise. Persistent inspiratory crackles bilateral lungs. HEART: Regular rate and rhythm, normal S1, S2. Could not appreciate any murmurs , rubs or gallops. ABDOMEN: Soft, nontender, nondistended, bowel sounds present, no guarding, no rebound. EXTREMITIES: No pedal edema. Pedal pulses present. LABORATORY DATA: WBC 12.8, hemoglobin 8.7 increased from yesterday 8.4, hematocrit 27, platelets 301. Sodium 135, potassium 3.5, chloride 98, carbon dioxide 31, BUN 28, creatinine 0.63, calcium 7.9, magnesium 1.8, total bilirubin 0.8, AST 20, ALT 28, alkaline phosphatase 136, CRP 4.88, decreased from yesterday 6.42. Fingerstick glucoses have been ranging 181 to 310. Sputum grew a few yeast-like organisms. Strep pneumoniae and urine Legionella negative. Chest x-ray shows persistent diffuse interstitial infiltrates. IMPRESSION AND PLAN: Mr. Velazquez is a 66-year-old male admitted with hypoxia and shortness of breath. 1. Acute Hypoxic Respiratory Failure requiring 35% FIO2. Unfortunately condition continues to be worsen. He is now placed on high-dose steroids and also currently diuresed, with the hope of some or if any improvement in his symptoms. Greatly appreciate Dr. Corral's and Dr. Gimenez's assistance. He was also evaluated by Dr. Muniz, and at this time, the patient is not believed to be having any infectious cause for his symptoms. Antibiotic has been discontinued. It is discouraging that his condition continues to deteriorate. 2. Atrial fibrillation, currently rate controlled. 3. Anemia. Status post a total of two units of packed red blood cells. Continues to have no evidence of bleeding at this time. 4. Type 2 diabetes. His fingersticks had been ranging high with higher insulin need. This morning, we added long-acting Levemir 10 units to help better control glucose. 5. Hyperlipidemia. Continue Lipitor daily. 6. History of coronary artery disease, status post stent. Aspirin and Lipitor. 7. Gastroesophageal reflux disease (GERD). Continue Protonix daily. 8. Deep vein thrombosis (DVT) prophylaxis. Sequential compression device (SCDs) and thromboembolism deterrents (TEDs). My preceptor for this patient encounter was Dr. Garza. The preceptor was physically present in the building during the encounter and was fully available. As needed, all aspects of the patient interview, examination, medical decision making process, and medical care plan development were reviewed and approved by the preceptor. The preceptor is aware and concurs with the plan as stated in the body of this note and will attest to such by his/her cosignature. edited: 06/20/2016 0750 marily MAYS
[2016-06-16] MEDS: ATORVASTATIN 20 MG TAB PO SCH (21:18)
[2016-06-16] MEDS: IPRATROPIUM 0.5MG/ALBUTEROL 2.5MG INH SOL UD 3ML (DUONEB)(J7620) NEB PRN (23:24)
[2016-06-17] VITALS: BP 111/62
[2016-06-17] MEDS: methylPREDNISolone INJ 125 MG/2 ML VIAL (J2930) IV SCH ×4 (01:32→20:49)
[2016-06-17] MEDS: IPRATROPIUM 0.5MG/ALBUTEROL 2.5MG INH SOL UD 3ML (DUONEB)(J7620) NEB SCH ×4 (02:00→19:41)
[2016-06-17 03:00] VITALS: BP 109/61
[2016-06-17] MEDS: FUROSEMIDE 40 MG/4 ML VIAL (J1940) IV SCH ×4 (03:37→15:00)
[2016-06-17] MEDS: IPRATROPIUM 0.5MG/ALBUTEROL 2.5MG INH SOL UD 3ML (DUONEB)(J7620) NEB PRN ×2 (03:48→23:56)
[2016-06-17 05:05] LABS: BASO % 0.5 % (0.0-1.0); EOS % 0.1 % (0.0-3.0); LARGE UNSTAINED CELL # 0.1 K/mm3 (0.0-0.4); LARGE UNSTAINED CELL % 0.9 % (0.0-4.0); LYMPH # 0.4 K/mm3 (1.5-4.5); LYMPH % 3.1 % (24.0-44.0); MEAN CORPUSCULAR HEMOGLOBIN 25.4 pg (27.0-33.0); MEAN CORPUSCULAR HGB CONC 32.6 g/dl (32.0-36.5); MEAN CORPUSCULAR VOLUME 77.8 fl (80.0-96.0); MONO # 0.6 K/mm3 (0.0-0.8); MONO % 5.5 % (0.0-5.0); NEUTROPHILS # 9.1 K/mm3 (1.8-7.7); NEUTROPHILS % 89.9 % (36.0-66.0); PLATELET COUNT, AUTOMATED 323 k/mm3 (150-450); RED CELL DISTRIBUTION WIDTH 19.7 % (11.5-14.5); WHITE BLOOD COUNT 10.1 K/mm3 (4.0-10.0)
[2016-06-17 05:29] LABS: ALBUMIN/GLOBULIN RATIO 0.51 (1.00-1.93); ALKALINE PHOSPHATASE 149 U/L (45-117); ALT/SGPT 35 U/L (12-78); ANION GAP 8 MEQ/L (8-16); AST/SGOT 27 U/L (15-37); BILIRUBIN,TOTAL 0.9 MG/DL (0.2-1.0); BLOOD UREA NITROGEN 38 MG/DL (7-18); CALCIUM LEVEL 7.9 MG/DL (8.8-10.2); CARBON DIOXIDE LEVEL 35 MEQ/L (21-32); CHLORIDE LEVEL 95 MEQ/L (98-107); CREATININE FOR GFR 0.67 MG/DL (0.70-1.30); GLOMERULAR FILTRATION RATE > 60.0 (>49); GLUCOSE, FASTING 240 MG/DL (80-110); MAGNESIUM LEVEL 1.9 MG/DL (1.8-2.4); POTASSIUM SERUM 3.4 MEQ/L (3.5-5.1); SODIUM LEVEL 138 MEQ/L (136-145); TOTAL PROTEIN 5.9 GM/DL (6.4-8.2)
[2016-06-17] MEDS: SLF 3 ML SYR IV SCH ×3 (06:18→20:54)
[2016-06-17] MEDS: HEPARIN SOD (PORCINE) 5000 UNITS/ML VIAL SQ SCH ×2 (06:18→14:57)
--- NOTE | 2016-06-17 07:40 | REP ---
Clinical: Hypoxemia. Comparison: 06/16/2016. Findings: Diffuse chronic interstitial changes including fibrosis and honeycomb pattern with suspected superimposed perihilar and basilar acute infiltrates. No obvious effusion. No pneumothorax. Mediastinum and cardiac silhouette stable. Skeletal structures stable. Impression: Views chronic interstitial changes with fibrosis and honeycombing. Superimposed perihilar and basilar infiltrates are suspected. Findings are relatively stable compared to prior examination. Signed by Timothy Gonzalez MD 06/17/2016 07:32 A
[2016-06-17 08:00] VITALS: BP 97/56
[2016-06-17] MEDS ORDERED: POTASSIUM CHLORIDE 10 MEQ SR TABLET PO ONE (08:00)
[2016-06-17] MEDS: RANOLAZINE 500 MG ER TAB PO SCH ×2 (08:10→20:48)
[2016-06-17] MEDS: SERTRALINE HCL 50 MG TAB PO SCH (08:11)
[2016-06-17] MEDS: PANTOPRAZOLE 40MG TAB (PROTONIX) PO SCH (08:11)
[2016-06-17] MEDS: ASPIRIN 81 MG ENTERIC TAB PO SCH (08:11)
[2016-06-17] MEDS: HumaLOG INSULIN (NovoLOG) PER UNIT SC SCH ×4 (08:12→20:54)
[2016-06-17] MEDS: LEVEMIR (INSULIN DETEMIR) 1 UNITS/0.01ML SC SCH (08:12)
[2016-06-17] MEDS ORDERED: AZITHROMYCIN 250 MG TAB PO SCH (09:00)
[2016-06-17 12:00] VITALS: BP 101/57
--- NOTE | 2016-06-17 14:29 | IPN ---
DATE: 06/17/2016 SUBJECTIVE: This is a 66-year-old male who was seen and examined at bedside. Yesterday, there is no longer plan for lung biopsy as the patient would likely not benefit from findings from the biopsy result. He had Solu-Medrol increased yesterday. This morning, states that he is unsure if he is physically feeling better, but mentally he thinks his breathing is improved. He still reports dry cough. No chest pain, palpitations, fevers, chills, night sweats. Feels sad at the thought of actually possibly needing to go to the group home should he undergo biopsy and be ventilator dependent and subsequently tracheostomy. He remains somewhat uncertain regarding the next step, as one moment he will say that he wants to do everything and then the next will say that aggressive intervention will affect his quality of life. Otherwise no new complaints. OBJECTIVE: VITAL SIGNS: Blood pressure 97/56k heart rate 65, respiratory rate 24, temperature 97.7, pulse oximetry 90% on 30% high comfort flow. Intake and output the last 24 hours 1925 and 3075. He continues to be positive 3 liters since admission. GENERAL: The patient is sitting in bed, comfortable, no acute distress. He is alert, awake, oriented times three, pleasant, cooperative. Is able to talk in full sentences without being hypoxic compared to yesterday. HEENT: Normocephalic, atraumatic. Extraocular movements intact. Moist oral mucosa. Wearing high flow. CHEST: Symmetric chest rise. Breath sounds still with inspiratory crackles in bilateral lungs. Somewhat decreased in lung bases. HEART: Regular rate and rhythm. S1, S2 present. Possible 2/6 murmur in the left second intercostal border systolic with no radiation. ABDOMEN: Soft, nontender, nondistended. Bowel sounds present. No guarding. No rebound. EXTREMITIES: No pedal edema. Pedal pulses present bilaterally. LABORATORY DATA: WBC improved from yesterday at 12.8. Hematocrit 28.3, platelets 323. Sodium 138, potassium 3.4, chloride 95, carbon dioxide 35, glucose 240, calcium 7.9, magnesium 1.9. CRP 2.85. Finger stick glucoses have been ranging 181 to 405. Chest x-ray showed still persistent chronic interstitial changes. No significant change compared to yesterday. ASSESSMENT AND PLAN: Mr. Velazquez is a 66-year-old unfortunate male who presented initially from [facility] for hypoxia and dyspnea. 1. Acute Hypoxic Respiratory Failure requiring 30% FIO2. He reported some mild improvement in symptoms today. Currently is on Solu-Medrol 250 every 6 hours. Continue current plan without change at this time. 2. Diabetes with hyperglycemia. Likely secondary to steroid effect. Continue insulin sliding scale. Will increase Levemir dosing. 3. Atrial fibrillation. Continues to be rate controlled. Will resumr his Xarelto now that there is no plan for surgery. 4. Anemia of chronic disease, status post 2 units of transfusion. 5. History of coronary artery disease. Continue aspirin and Lipitor. He is status post stent placement. Not on beta nasir, likely secondary to his underlying lung disease. 6. Deep vein thrombosis prophylaxis. Sequential compression devices (SCDs) and thromboembolic deterrent stockings (TEDs). Will consider resuming the Xarelto today. My preceptor for this patient encounter was Dr. Mian Garza. The preceptor was physically present in the building during the encounter and was fully available. As needed, all aspects of the patient interview, examination, medical decision making process, and medical care plan development were reviewed and approved by the preceptor. The preceptor is aware and concurs with the plan as stated in the body of this note and will attest to such by his/her cosignature. TABATHA
[2016-06-17 15:00] VITALS: BP 112/59
[2016-06-17] MEDS: RIVAROXABAN 20 MG TAB (XARELTO) PO SCH (17:41)
[2016-06-17 20:00] VITALS: BP 113/65
[2016-06-17] MEDS: ATORVASTATIN 20 MG TAB PO SCH (20:48)
[2016-06-18] VITALS: BP 133/74
[2016-06-18] MEDS: methylPREDNISolone INJ 125 MG/2 ML VIAL (J2930) IV SCH ×4 (02:21→20:28)
[2016-06-18 04:00] VITALS: BP 117/60
[2016-06-18] MEDS: SLF 3 ML SYR IV SCH ×3 (04:23→22:00)
[2016-06-18 04:37] LABS: LARGE UNSTAINED CELL # 0.1 K/mm3 (0.0-0.4); LARGE UNSTAINED CELL % 0.8 % (0.0-4.0); LYMPH # 0.3 K/mm3 (1.5-4.5); LYMPH % 2.9 % (24.0-44.0); MEAN CORPUSCULAR HEMOGLOBIN 24.9 pg (27.0-33.0); MEAN CORPUSCULAR HGB CONC 30.3 g/dl (32.0-36.5); MEAN CORPUSCULAR VOLUME 82.1 fl (80.0-96.0); MONO # 0.6 K/mm3 (0.0-0.8); MONO % 5.3 % (0.0-5.0); NEUTROPHILS # 10.1 K/mm3 (1.8-7.7); NEUTROPHILS % 90.9 % (36.0-66.0); PLATELET COUNT, AUTOMATED 371 k/mm3 (150-450); RED CELL DISTRIBUTION WIDTH 18.4 % (11.5-14.5); WHITE BLOOD COUNT 11.1 K/mm3 (4.0-10.0)
[2016-06-18] MEDS: IPRATROPIUM 0.5MG/ALBUTEROL 2.5MG INH SOL UD 3ML (DUONEB)(J7620) NEB SCH ×4 (04:39→20:54)
[2016-06-18 04:59] LABS: ALBUMIN 1.9 GM/DL (3.2-5.2); ALBUMIN/GLOBULIN RATIO 0.53 (1.00-1.93); ALKALINE PHOSPHATASE 139 U/L (45-117); ALT/SGPT 34 U/L (12-78); ANION GAP 11 MEQ/L (8-16); AST/SGOT 17 U/L (15-37); BILIRUBIN,TOTAL 0.6 MG/DL (0.2-1.0); BLOOD UREA NITROGEN 46 MG/DL (7-18); CARBON DIOXIDE LEVEL 32 MEQ/L (21-32); CHLORIDE LEVEL 98 MEQ/L (98-107); CREATININE FOR GFR 0.67 MG/DL (0.70-1.30); GLOMERULAR FILTRATION RATE > 60.0 (>49); GLUCOSE, FASTING 337 MG/DL (80-110); MAGNESIUM LEVEL 2.2 MG/DL (1.8-2.4); POTASSIUM SERUM 3.6 MEQ/L (3.5-5.1); SODIUM LEVEL 141 MEQ/L (136-145); TOTAL PROTEIN 5.5 GM/DL (6.4-8.2)
[2016-06-18 08:17] VITALS: BP 111/63
[2016-06-18] MEDS: HumaLOG INSULIN (NovoLOG) PER UNIT SC SCH ×4 (09:00→20:35)
[2016-06-18] MEDS ORDERED: LEVEMIR (INSULIN DETEMIR) 1 UNITS/0.01ML SC SCH (09:00)
[2016-06-18] MEDS: SERTRALINE HCL 50 MG TAB PO SCH (09:01)
[2016-06-18] MEDS: PANTOPRAZOLE 40MG TAB (PROTONIX) PO SCH (09:01)
[2016-06-18] MEDS: RANOLAZINE 500 MG ER TAB PO SCH ×2 (09:01→20:28)
[2016-06-18] MEDS: ASPIRIN 81 MG ENTERIC TAB PO SCH (09:01)
[2016-06-18] MEDS: NYSTATIN 500,000 U/5 ML SUSP UDC SS SCH ×2 (12:00→18:00)
[2016-06-18 17:35] VITALS: BP 118/57
[2016-06-18] MEDS: RIVAROXABAN 20 MG TAB (XARELTO) PO SCH (18:00)
[2016-06-18 20:00] VITALS: BP 112/66
[2016-06-18] MEDS: ATORVASTATIN 20 MG TAB PO SCH (20:28)
[2016-06-18 20:46] VITALS: O2SAT 88
[2016-06-19] VITALS (7 sets, daily range): BP systolic 108–122; BP diastolic 61–65; O2SAT 87–93
[2016-06-19] MEDS: methylPREDNISolone INJ 125 MG/2 ML VIAL (J2930) IV SCH ×4 (01:02→20:59)
[2016-06-19] MEDS: NYSTATIN 500,000 U/5 ML SUSP UDC SS SCH ×5 (01:02→23:43)
[2016-06-19] MEDS: IPRATROPIUM 0.5MG/ALBUTEROL 2.5MG INH SOL UD 3ML (DUONEB)(J7620) NEB SCH ×4 (01:11→20:15)
[2016-06-19 05:04] LABS: MEAN CORPUSCULAR HEMOGLOBIN 24.5 pg (27.0-33.0); RED CELL DISTRIBUTION WIDTH 19.5 % (11.5-14.5); WHITE BLOOD COUNT 14.1 K/mm3 (4.0-10.0)
[2016-06-19 05:09] LABS: ANION GAP 5 MEQ/L (8-16); BLOOD UREA NITROGEN 44 MG/DL (7-18); CALCIUM LEVEL 7.7 MG/DL (8.8-10.2); CARBON DIOXIDE LEVEL 35 MEQ/L (21-32); CHLORIDE LEVEL 102 MEQ/L (98-107); CREATININE FOR GFR 0.46 MG/DL (0.70-1.30); GLOMERULAR FILTRATION RATE > 60.0 (>49); GLUCOSE, FASTING 163 MG/DL (80-110); POTASSIUM SERUM 3.9 MEQ/L (3.5-5.1); SODIUM LEVEL 142 MEQ/L (136-145)
[2016-06-19] MEDS: SLF 3 ML SYR IV SCH ×3 (05:35→20:59)
[2016-06-19] MEDS: HumaLOG INSULIN (NovoLOG) PER UNIT SC SCH ×4 (07:30→20:59)
[2016-06-19] MEDS: PANTOPRAZOLE 40MG TAB (PROTONIX) PO SCH (09:00)
[2016-06-19] MEDS: RANOLAZINE 500 MG ER TAB PO SCH ×2 (09:00→20:59)
[2016-06-19] MEDS: ASPIRIN 81 MG ENTERIC TAB PO SCH (09:00)
[2016-06-19] MEDS: LEVEMIR (INSULIN DETEMIR) 1 UNITS/0.01ML SC SCH (09:00)
[2016-06-19] MEDS: SERTRALINE HCL 50 MG TAB PO SCH (09:00)
[2016-06-19] MEDS: CARBAMIDE PEROXIDE 6.5% OTIC SOLN 15ML AS SCH ×2 (11:00→20:59)
--- NOTE | 2016-06-19 11:26 | IPNPDOC ---
Text Note Date of Service The patient was seen on 06/19/16 at 11:19. NOTE Subjective: Patient's states his dyspnea still the same. Denies any chest pain/ palpitations. Would like to speak with case management tomorrow regarding possible placement. Objective: Vitals: (see below) General: No acute distress, laying comfortably in bed. HEENT: Moist mucous membranes. Neck: No JVD or lymphadenopathy Cardiac: RRR, No murmurs Pulm: Diminished breath sounds at coarse crackles at the bases b/l. No wheezing , no rhonchi. No use of accessory muscles. No stridor. Abd: NT/ND + BS Ext: No edema or cyanosis Labs (see below) Images: Assessment/Plan 1. Acute hypoxic respiratory failure requiring 35% FiO2. At this time pulmonary is on board recommending continuation of high-dose steroids for possible interstitial pneumonia. There is also some concern that this may be secondary to amiodarone toxicity. Patient has been evaluated by infectious disease, and felt to be unlikely secondary to infection. The patient's prognosis is very poor and he understands that. He does continue to prefer being full code. We'll continue steroids and clinical monitoring. Patient was also evaluated by thoracic surgery, and in combination with pulmonary's recommendations, a lung biopsy was held as it was unlikely to change clinical regimen. 2. Diabetes mellitus- continue Levemir, will increase dose today his blood sugars have been elevated from steroids. 3. Atrial fibrillation on Xarelto 4. Anemia of chronic disease - status post 2 units. We see. Hemoglobin stable. 5. 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 Continue statin. DVT prophy: On Xarelto Current Medications Current Medications Medications (Trade) Dose Ordered Sig/Emily Route PRN Reason Start Time Stop Time Status Last Admin Dose Admin Acetaminophen (Tylenol) 650 mg Q4HP PRN PO MILD PAIN OR FEVER 06/11/16 15:00 07/11/16 14:59 Albuterol/ Ipratropium (Duoneb (Ipr 0.5mg/Alb 2.5mg)) 3 ml RQ6H NEB 06/11/16 20:00 07/11/16 19:59 06/19/16 07:42 Albuterol/ Ipratropium 3 ml 3 ml Q2HP PRN NEB SOB/WHEEZING 06/11/16 18:00 07/11/16 17:59 06/17/16 23:56 Aspirin (Ecotrin) 81 mg DAILY PO 06/12/16 09:00 07/12/16 08:59 06/19/16 09:00 Atorvastatin Calcium (Lipitor) 20 mg QHS PO 06/11/16 21:00 07/11/16 20:59 06/18/16 20:28 Azithromycin (Zithromax) 500 mg DAILY PO 06/17/16 09:00 06/17/16 09:00 DC Azithromycin/IV Miscellaneous Supplies/Dextrose (Zithromax/ Adapter-Vial Mate/ Dextrose 5%) 255 ml @ 255 mls/hr Q24H IV 06/14/16 08:00 06/16/16 13:55 DC 06/16/16 08:05 Carbamide Perox/ Anhydrous Glycerin (Debrox) 3 drop BID 06/19/16 09:00 06/22/16 23:59 Dextrose (Dextrose 50%) 25 ml ASDIRECTED PRN IV SEE LABEL COMMENTS 06/11/16 17:45 07/11/16 17:44 Dextrose (Dextrose 50%) 25 ml ASDIRECTED PRN IV SEE LABEL COMMENTS 06/12/16 06:45 06/12/16 06:47 DC Dextrose (Dextrose 50%) 25 ml ASDIRECTED PRN IV SEE LABEL COMMENTS 06/14/16 13:00 06/18/16 08:01 DC Furosemide (Lasix) 40 mg Q4H IV 06/15/16 10:00 06/15/16 23:59 DC 06/15/16 22:19 Furosemide 40 mg 40 mg Q4H IV 06/16/16 11:00 06/17/16 15:44 DC 06/17/16 06:17 Glucagon (Glucagon) 1 mg ASDIRECTED PRN SC SEE LABEL COMMENTS 06/11/16 17:45 07/11/16 17:44 Glucagon (Glucagon) 1 mg ASDIRECTED PRN SC SEE LABEL COMMENTS 06/12/16 06:45 06/12/16 06:47 DC Glucagon (Glucagon) 1 mg ASDIRECTED PRN SC SEE LABEL COMMENTS 06/14/16 13:00 06/18/16 08:01 DC Glucose (Glucose) 16 GM ASDIRECTED PRN PO SEE LABEL COMMENTS 06/11/16 17:45 07/11/16 17:44 Glucose (Glucose) 16 GM ASDIRECTED PRN PO SEE LABEL COMMENTS 06/12/16 06:45 06/12/16 06:47 DC Glucose (Glucose) 16 GM ASDIRECTED PRN PO SEE LABEL COMMENTS 06/14/16 13:00 06/18/16 08:01 DC Heparin Sodium (Porcine) (Heparin) 5,000 units Q8H SQ 06/16/16 14:00 06/17/16 15:41 DC 06/17/16 14:57 Home Med (Med Rec Complete!) ASDIRECTED XX 06/11/16 15:45 06/11/16 16:05 DC Hydroxyzine HCl (Vistaril) 10 mg TID PRN PO ANXIETY 06/11/16 18:00 07/11/16 17:59 Insulin Detemir (Levemir Insulin) 10 units QAM SC 06/16/16 09:00 06/18/16 07:52 DC 06/17/16 08:12 Insulin Detemir (Levemir Insulin) 20 units QAM SC 06/18/16 09:00 06/19/16 07:31 DC 06/18/16 09:01 Insulin Detemir (Levemir Insulin) 30 units QAM SC 06/19/16 09:00 07/19/16 08:59 06/19/16 09:00 Insulin Human Lispro (HumaLOG INSULIN) SEE PROTOCOL TABLE AC HI 06/12/16 07:30 06/12/16 07:30 DC Insulin Human Lispro (HumaLOG INSULIN) SEE PROTOCOL TABLE AC HI 06/14/16 17:30 07/14/16 17:29 06/19/16 07:30 Insulin Human Lispro (HumaLOG INSULIN) SEE PROTOCOL TABLE Q6H SC 06/12/16 06:00 06/14/16 13:01 DC 06/14/16 11:25 Insulin Human Lispro (HumaLOG INSULIN) SEE PROTOCOL TABLE QHS SC 06/11/16 21:00 06/12/16 06:35 DC Insulin Human Lispro (HumaLOG INSULIN) SEE PROTOCOL TABLE QHS SC 06/14/16 21:00 07/14/16 20:59 06/18/16 20:35 Meropenem 1 gm/ Dextrose 100 ml @ 200 mls/hr Q8H IV 06/11/16 20:00 06/15/16 10:13 DC 06/15/16 04:45 Methylprednisolone (SOLUmedrol) 60 mg Q8H IV 06/12/16 17:00 06/16/16 10:41 DC 06/16/16 08:05 Methylprednisolone (SOLUmedrol) 250 mg RQ6H IV 06/16/16 14:00 07/16/16 13:59 06/19/16 08:00 Nystatin (Mycostatin) 5 ml Q6H SS 06/18/16 12:00 06/25/16 11:59 06/19/16 05:35 Ondansetron HCl (Zofran) 4 mg Q6HP PRN IV NAUSEA OR VOMITING 06/16/16 06:00 07/16/16 05:59 06/16/16 06:05 Pantoprazole Sodium (Protonix) 40 mg DAILY PO 06/12/16 09:00 07/12/16 08:59 06/19/16 09:00 Potassium Chloride/IV Miscellaneous Supplies (KCl 10meq In 100ml Swi (Krun)) 100 ml @ 100 mls/hr 1T@11,12,13 IV 06/16/16 11:00 06/16/16 16:00 DC 06/16/16 13:16 Ranolazine (Ranexa) 1,000 mg BID PO 06/11/16 21:00 07/11/16 20:59 06/19/16 09:00 Rivaroxaban (Xarelto) 20 mg DAILY@18 PO 06/17/16 18:00 06/24/16 17:59 06/18/16 18:00 Rivaroxaban (Xarelto) 20 mg QHS PO 06/11/16 21:00 06/15/16 09:40 DC 06/14/16 20:42 Sertraline HCl (Zoloft) 50 mg DAILY PO 06/12/16 09:00 07/12/16 08:59 06/19/16 09:00 Sodium Chloride (Saline Lock Flush) 2 ml SLF IV 06/13/16 14:00 07/13/16 13:59 06/19/16 05:35 Sodium Chloride 2 ml 2 ml ASDIRECTED PRN IV SEE LABEL COMMENTS 06/13/16 13:15 07/13/16 13:14 Vancomycin HCl/IV Miscellaneous Supplies/Dextrose (Vancomycin HCl/ Adapter-Vial Mate/ Dextrose 5%) 270 ml @ 270 mls/hr Q8H IV 06/11/16 21:00 06/15/16 06:17 DC 06/15/16 04:45 Allergies Coded Allergies: No Known Allergies (Unverified , 06/11/16) VS,Fishbone, I+O VS, Fishbone, I+O Laboratory Tests 06/19/16 04:12 Calcium Level 7.7 L, Red Blood Count 3.34 L, Mean Corpuscular Volume 79.0 L, Mean Corpuscular Hemoglobin 24.5 L, Mean Corpuscular Hemoglobin Concent 31.0 L, Red Cell Distribution Width 19.5 H Vital Signs Date Time Temp Pulse Resp B/P Pulse Ox O2 Delivery O2 Flow Rate FiO2 06/19/16 08:00 Nasal Cannula 35.0 06/19/16 04:00 97.6 68 23 122/63 90 06/17/16 07:55 35 I&O- Last 24 Hours up to 6 AM 06/19/16 06:00 Intake Total 1320 ml Output Total 1200 ml Balance 120 ml GIUSEPPE DURON MD Jun 19, 2016 11:19
[2016-06-19] MEDS: RIVAROXABAN 20 MG TAB (XARELTO) PO SCH (18:00)
[2016-06-19] MEDS: ATORVASTATIN 20 MG TAB PO SCH (20:59)
[2016-06-20] VITALS (7 sets, daily range): BP systolic 103–132; BP diastolic 60–75; O2SAT 97
[2016-06-20] MEDS: IPRATROPIUM 0.5MG/ALBUTEROL 2.5MG INH SOL UD 3ML (DUONEB)(J7620) NEB SCH ×4 (01:41→20:30)
[2016-06-20] MEDS: methylPREDNISolone INJ 125 MG/2 ML VIAL (J2930) IV SCH ×3 (02:03→16:01)
[2016-06-20 04:46] LABS: MEAN CORPUSCULAR HGB CONC 30.8 g/dl (32.0-36.5); MEAN CORPUSCULAR VOLUME 81.2 fl (80.0-96.0); RED CELL DISTRIBUTION WIDTH 18.2 % (11.5-14.5); WHITE BLOOD COUNT 11.5 K/mm3 (4.0-10.0)
[2016-06-20] MEDS: SLF 3 ML SYR IV SCH ×3 (05:00→21:11)
[2016-06-20] MEDS: NYSTATIN 500,000 U/5 ML SUSP UDC SS SCH ×3 (05:00→17:43)
[2016-06-20 05:15] LABS: ANION GAP 8 MEQ/L (8-16); BLOOD UREA NITROGEN 39 MG/DL (7-18); CALCIUM LEVEL 7.7 MG/DL (8.8-10.2); CARBON DIOXIDE LEVEL 32 MEQ/L (21-32); CHLORIDE LEVEL 99 MEQ/L (98-107); CREATININE FOR GFR 0.62 MG/DL (0.70-1.30); GLOMERULAR FILTRATION RATE > 60.0 (>49); GLUCOSE, FASTING 240 MG/DL (80-110); POTASSIUM SERUM 4.1 MEQ/L (3.5-5.1); SODIUM LEVEL 139 MEQ/L (136-145)
[2016-06-20] MEDS: HumaLOG INSULIN (NovoLOG) PER UNIT SC SCH ×4 (08:07→21:00)
--- NOTE | 2016-06-20 08:29 | REP ---
The foramen video portable chest, 06/10/2016, 04:35 a.m., single frontal view, patient sitting: Comparisons are 06/17/2016 and 06/11/2016. There are no other more remote comparison studies. There are diffuse bilateral interstitial and alveolar infiltrates compatible with pulmonary edema. No pleural effusions. There is cardiomegaly, unchanged. Impression: No change from the prior studies. Signed by Gabo Blackwood MD 06/18/2016 08:16 A
--- NOTE | 2016-06-20 08:32 | IPN ---
DATE: 06/18/2016 SUBJECTIVE: This is a 66-year-old male who was seen and examined at the bedside. Yesterday, we resumed his Xarelto. This morning feels the same as yesterday. Still reports dry cough. Any exertion, including going the commode will make him have significant shortness of breath. No chest pain, palpitations, fevers, chills. States that he is ready to go to a [facility] whenever he is discharged from the hospital. OBJECTIVE: VITAL SIGNS: Blood pressure 117/60, heart rate 70, respiration rate 22, temperature 97.6. Maximum temperature (t-max) 98.5 in the last 24 hours. He is on oxygen flow. Intake and output in the last 24 hours: 1910 and 1575. GENERAL : The patient is sitting in bed comfortable. No acute psychiatric distress. He is alert, awake, oriented times three, pleasant, cooperative. HEENT: Normocephalic, atraumatic. Moist oral mucosa with some thrush. NECK: Supple. Trachea midline. No jugular venous distention (JVD). CHEST: Dyspneic on exertion, including leaning forward, though he was less hypoxic, continues to not be significantly hypoxic compared to previous visits while talking. Lung sounds with still persistent inspiratory crackles and coarse. HEART: Regular rate and rhythm. S1, S2 present. ABDOMEN: Soft, nontender, nondistended. Bowel sounds present. No guarding. No rebound. EXTREMITIES: No pedal edema. Pedal pulses present bilaterally. LABORATORY DATA: WBC 11.1, hemoglobin 8.8, mildly decreased from yesterday of 9.2, hematocrit 29, platelets 371. Sodium 141, potassium 3.6, chloride 98, carbon dioxide 32, BUN 46, creatinine 0.67, glucose 337, fasting glucose has been ranging 203 to 405. Sputum grew yeast-like organism. Chest x-ray does not appear to be significantly different compared to yesterday. IMPRESSION: Mr. Velazquez is a 66-year-old male who presented with respiratory failure. 1.Acute Hypoxic Respiratory Failure. On day 7 of Solu-Medrol. He reportedly feels some improvement with increased dose of steroids. Continue nebulizer treatments as needed and scheduled. Discussed his condition at length with the patient and also attempted to discuss code status. Unfortunately, he appears not to have full grasp of his current condition and remains somewhat confused regarding the nature of code status despite multiple attempts. At this time, he remains FULL CODE. 2. Diabetes with hyperglycemia. Fingersticks have been increasing, but it is likely secondary to increased dose of steroids. We have increased his Levemir from 10 units to 20 units this morning. Continue insulin sliding scale. 3. Atrial fibrillation is rate controlled. Xarelto was restarted yesterday. 4. Anemia of chronic disease. He is status post 2 units of blood transfusion since admission. There is mild decrease in hemoglobin today but no evidence of active bleeding at this time. Continue to monitor. 5. History of coronary artery disease. Continue aspirin and Lipitor. Status post stent placement. 6. Oral candidiasis. Have started nystatin swish and swallow. 7. Gastroesophageal reflux disease (GERD). Continue home dose of Protonix. 8. Depression and anxiety. On home dose of Zoloft 50 mg daily. 9. Deep vein thrombosis (DVT) prophylaxis. Sequential compression device (SCD) , thromboembolic compression stockings (TEDS) and on Xarelto for atrial fibrillation. My preceptor for this patient encounter was Dr. Garza. The preceptor was physically present in the building during the encounter and was fully available. As needed, all aspects of the patient interview, examination, medical decision making process, and medical care plan development were reviewed and approved by the preceptor. The preceptor is aware and concurs with the plan as stated in the body of this note and will attest to such by his/her cosignature. TABATHA
[2016-06-20] MEDS: RANOLAZINE 500 MG ER TAB PO SCH ×2 (09:01→21:15)
[2016-06-20] MEDS: SERTRALINE HCL 50 MG TAB PO SCH (09:01)
[2016-06-20] MEDS: ASPIRIN 81 MG ENTERIC TAB PO SCH (09:02)
[2016-06-20] MEDS: LEVEMIR (INSULIN DETEMIR) 1 UNITS/0.01ML SC SCH (09:02)
[2016-06-20] MEDS: PANTOPRAZOLE 40MG TAB (PROTONIX) PO SCH (09:02)
[2016-06-20] MEDS: CARBAMIDE PEROXIDE 6.5% OTIC SOLN 15ML AS SCH ×2 (09:02→21:15)
--- NOTE | 2016-06-20 16:31 | IPN ---
DATE: 06/20/2016 SUBJECTIVE: This is a 66-year-old male who was seen and examined at the bedside. Overnight, had episodes of hypoxia with lowest 85. Currently denies any chest pain, palpitations, nausea, vomiting, diarrhea, constipation. Still reports shortness of breath which has not been significantly changed. Any minimal exertion still leaves him very winded. OBJECTIVE: VITAL SIGNS: Blood pressure 132/75, heart rate 72, temperature 98.3, respiratory rate 24, pulse oximetry 96% on 35 Comfort Sahil. INTAKE AND OUTPUT: Last 24 hours is 96 and 1250. GENERAL: Patient is sitting in bed, comfortable, no acute distress, chronically ill appearing and appears older than stated age, pleasant. HEENT: Normocephalic, atraumatic, moist oral mucosa. No obvious lesions. Thrush is improved. NECK: Supple, trachea midline. Could not appreciate jugular venous distention (JVD). CHEST: Symmetric chest rise, minimal amount of exertion, including leaning forward. Breath sounds still coarse with inspiratory crackles through lung troncoso. HEART: Regular rate and rhythm. S1, S2 normal. ABDOMEN: Soft, nontender, nondistended, bowel sounds present, no guarding, no rebound. EXTREMITIES: No pedal edema. Pedal pulses present bilaterally. LABORATORY DATA: WBC 11.5, hemoglobin 7.9, hematocrit 25.5, repeat is 8.1, 27.1, platelets 345. Sodium 139, potassium 4.1, chloride 99, carbon dioxide 32, BUN 39 , creatinine 0.62, glucose 240, calcium 7.7, fingerstick glucose have been 247 to 311. CRP is 0.52. Blood culture is positive. IMPRESSION AND PLAN: 1. Acute Hypoxic respiratory failure. on 35% FIO2. He is on day #9 of Solu- Medrol; unfortunately, does not appear to be showing any significant improvement with high-dose steroids. Case was discussed with Dr. Todd, and at this time, frequency of steroids will be decreased. Continue nebulizer treatments. Unfortunately, no significant changes in his condition. 2. Anemia with stool occult positive. Repeat hemoglobin and hematocrit did not show significant change. He is on aspirin and Xarelto. Case was discussed with the patient due to his positive hemoccult finding. At this time, the patient wishes to be off Xarelto even after knowing that being off anticoagulation will mean he is at an increased risk for stroke. He was also informed of possible esophagogastroduodenoscopy (EGD) or colonoscopy. However, he declined offer at this time, which we believe is reasonable considering his progression of his underlying lung problem, and likely not able to tolerate any anesthesia. Continue to monitor hemoglobin and transfuse as needed. 3. Diabetes with hyperglycemia. Fingersticks are high. He is currently on Levemir 30 units and insulin sliding scale. Hopefully with decreased dose of steroids, this will show some improvement. 4. Atrial fibrillation. Continues to be rate controlled. Xarelto was discontinued for reasons discussed above. 5. History of coronary artery disease. He is on aspirin and Lipitor. He is status post stent placement. Not on beta nasir, likely secondary to advanced pulmonary disease. 6. Oral candidiasis. Continue Nystatin. 7. Gastroesophageal reflux disease (GERD). Continue Protonix. 8. Hyperlipidemia. Continue Lipitor 20 mg nightly. 9. Deep vein thrombosis (DVT) prophylaxis. Sequential compression device (SCD), thromboembolism deterrents (TEDs). Xarelto was stopped this morning per patient's request and no pharmacological intervention at this time due to gastrointestinal (GI) bleed. CODE STATUS: FULL. My preceptor for this patient encounter was Dr. Garza. The preceptor was physically present in the building during the encounter and was fully available. As needed, all aspects of the patient interview, examination, medical decision making process, and medical care plan development were reviewed and approved by the preceptor. The preceptor is aware and concurs with the plan as stated in the body of this note and will attest to such by his/her cosignature. TABATHA
[2016-06-20] MEDS: ATORVASTATIN 20 MG TAB PO SCH (21:15)
[2016-06-21] VITALS (10 sets, daily range): BP systolic 105–137; BP diastolic 60–70; O2SAT 88
[2016-06-21] MEDS: methylPREDNISolone INJ 125 MG/2 ML VIAL (J2930) IV SCH ×4 (00:46→23:45)
[2016-06-21] MEDS: NYSTATIN 500,000 U/5 ML SUSP UDC SS SCH ×5 (00:46→23:45)
[2016-06-21] MEDS: IPRATROPIUM 0.5MG/ALBUTEROL 2.5MG INH SOL UD 3ML (DUONEB)(J7620) NEB SCH ×4 (02:09→20:25)
[2016-06-21 05:14] LABS: MEAN CORPUSCULAR HEMOGLOBIN 23.9 pg (27.0-33.0); MEAN CORPUSCULAR HGB CONC 29.9 g/dl (32.0-36.5); RED CELL DISTRIBUTION WIDTH 19.4 % (11.5-14.5); WHITE BLOOD COUNT 14.4 K/mm3 (4.0-10.0)
[2016-06-21 05:26] LABS: ANION GAP 8 MEQ/L (8-16); BLOOD UREA NITROGEN 40 MG/DL (7-18); CARBON DIOXIDE LEVEL 30 MEQ/L (21-32); CHLORIDE LEVEL 101 MEQ/L (98-107); CREATININE FOR GFR 0.58 MG/DL (0.70-1.30); GLOMERULAR FILTRATION RATE > 60.0 (>49); GLUCOSE, FASTING 94 MG/DL (80-110); POTASSIUM SERUM 4.2 MEQ/L (3.5-5.1); SODIUM LEVEL 139 MEQ/L (136-145)
[2016-06-21] MEDS: SLF 3 ML SYR IV SCH ×3 (05:54→20:42)
[2016-06-21] MEDS: HumaLOG INSULIN (NovoLOG) PER UNIT SC SCH ×4 (07:30→20:41)
[2016-06-21] MEDS: ASPIRIN 81 MG ENTERIC TAB PO SCH (08:24)
[2016-06-21] MEDS: SERTRALINE HCL 50 MG TAB PO SCH (08:24)
[2016-06-21] MEDS: PANTOPRAZOLE 40MG TAB (PROTONIX) PO SCH (08:24)
[2016-06-21] MEDS: LEVEMIR (INSULIN DETEMIR) 1 UNITS/0.01ML SC SCH (08:25)
[2016-06-21] MEDS: RANOLAZINE 500 MG ER TAB PO SCH ×2 (08:25→20:42)
[2016-06-21] MEDS: CARBAMIDE PEROXIDE 6.5% OTIC SOLN 15ML AS SCH ×2 (08:26→20:42)
--- NOTE | 2016-06-21 13:13 | IPN ---
DATE OF SERVICE: 06/21/2016 SUBJECTIVE: This is a 66-year-old male who was seen and examined at the bedside. Overnight, states that his breathing continues to be the same. However, he did have multiple episodes of loose bowel movements, maybe even close to one episode every 2 hours. No chest pain, palpitations, fever, chills, weakness. No hematochezia or melena in stools. OBJECTIVE: VITAL SIGNS: Blood pressure 137/70, heart rate 71, temperature 96.8, respiration rate 20, pulse oximetry 88% on Comfort Sahil. INTAKE AND OUTPUT: The last 24 hours, 1200 and 1400. There are documented 8 bowel movements in the last 24 hours. GENERAL: The patient was sitting in bed, comfortable, no acute distress, alert, awake, oriented times three, pleasant, cooperative, chronically ill-appearing, and appears older than stated age. HEENT: Normocephalic, atraumatic. Moist oral mucosa. NECK: Supple. Trachea midline. No jugular venous distention (JVD). CHEST: Symmetric chest rise. Some minimal amount of accessory muscle use with minimal exertion. Breath sounds still very coarse with inspiratory crackles, most significant in the lower lung bases compared to upper. HEART: Regular rate and rhythm. S1, S2 normal. ABDOMEN: Is soft, nontender, nondistended, bowel sounds present, no guarding, no rebound. EXTREMITIES: There is trace edema by his ankles. LABORATORY DATA: WBC 14.4 increased from yesterday 11.5, hemoglobin 8.5, hematocrit 28.3, platelets 377. Sodium 139, potassium 4.2, chloride 101, carbon dioxide 30, BUN 40, creatinine 0.58, glucose 94, calcium 8, CRP 0.38. Rheumatologic workup, including ANCA, KEREN, rheumatoid factor negative. Fingerstick glucose had been ranging anywhere from 155-385. Stool occult is positive. IMPRESSION AND PLAN: Mr. Velazquez is a 66-year-old male who presented with acute respiratory failure. Previously, he received antibiotic for initial presumptive pneumonia. Now developing diarrhea. 1. Diarrhea. The patient was on antibiotics. Will check stool to rule out any underlying infection. 2. Acute on chronic respiratory failure. He is on day #10 of Solu-Medrol. Dose was decreased yesterday. Greatly appreciated Dr. Todd's assistance. 3. Diabetes with hyperglycemia. His fingersticks and fasting glucose this morning appear to be somewhat improved. This is likely secondary to decreased dose of steroids. Continue current plan with insulin sliding scale and Levemir 30 units every morning. 4. Anemia with stool occult positive. Hemoglobin and hematocrit are improved today compared to yesterday. As mentioned, the patient's Xarelto is discontinued per the patient's request despite knowing the risk of a stroke. Continue aspirin. 5. Atrial fibrillation is rate controlled. Xarelto is now discontinued due to a positive hemoccult and the patient's request. 6. History of coronary artery disease (CAD). On aspirin and Lipitor. He is status post stent placement. 7. Oral candidiasis. Continue Nystatin. 8. Gastroesophageal reflux disease (GERD). Continue Protonix. 9. Hyperlipidemia. Continue Lipitor 20 mg nightly. 10. Deep vein thrombosis (DVT) prophylaxis. Sequential compression device (SCD), thromboembolism deterrents (TEDs). No pharmacological intervention secondary to gastrointestinal (GI) bleed. My preceptor for this patient encounter was Dr. Drew Denton. The preceptor was physically present in the building during the encounter and was fully available. As needed, all aspects of the patient interview, examination, medical decision making process, and medical care plan development were reviewed and approved by the preceptor. The preceptor is aware and concurs with the plan as stated in the body of this note and will attest to such by his/her cosignature. TABATHA
[2016-06-21] MEDS: ATORVASTATIN 20 MG TAB PO SCH (20:42)
[2016-06-22] VITALS (11 sets, daily range): BP systolic 93–130; BP diastolic 52–74; O2SAT 90–94
[2016-06-22] MEDS: IPRATROPIUM 0.5MG/ALBUTEROL 2.5MG INH SOL UD 3ML (DUONEB)(J7620) NEB SCH ×4 (02:04→20:18)
[2016-06-22 05:30] LABS: MEAN CORPUSCULAR HEMOGLOBIN 24.4 pg (27.0-33.0); MEAN CORPUSCULAR HGB CONC 30.2 g/dl (32.0-36.5); MEAN CORPUSCULAR VOLUME 80.9 fl (80.0-96.0); RED CELL DISTRIBUTION WIDTH 18.2 % (11.5-14.5); WHITE BLOOD COUNT 12.6 K/mm3 (4.0-10.0)
[2016-06-22] MEDS: SLF 3 ML SYR IV SCH ×3 (05:38→21:08)
[2016-06-22] MEDS: NYSTATIN 500,000 U/5 ML SUSP UDC SS SCH ×3 (05:38→18:11)
[2016-06-22 06:08] LABS: ANION GAP 7 MEQ/L (8-16); BLOOD UREA NITROGEN 39 MG/DL (7-18); CALCIUM LEVEL 7.6 MG/DL (8.8-10.2); CARBON DIOXIDE LEVEL 30 MEQ/L (21-32); CHLORIDE LEVEL 103 MEQ/L (98-107); CREATININE FOR GFR 0.56 MG/DL (0.70-1.30); GLOMERULAR FILTRATION RATE > 60.0 (>49); GLUCOSE, FASTING 132 MG/DL (80-110); POTASSIUM SERUM 3.7 MEQ/L (3.5-5.1); SODIUM LEVEL 140 MEQ/L (136-145)
[2016-06-22] MEDS: HumaLOG INSULIN (NovoLOG) PER UNIT SC SCH ×4 (08:21→20:38)
[2016-06-22] MEDS: methylPREDNISolone INJ 125 MG/2 ML VIAL (J2930) IV SCH ×2 (08:22→15:56)
[2016-06-22] MEDS: RANOLAZINE 500 MG ER TAB PO SCH ×2 (09:00→21:08)
[2016-06-22] MEDS: PANTOPRAZOLE 40MG TAB (PROTONIX) PO SCH (09:00)
[2016-06-22] MEDS: SERTRALINE HCL 50 MG TAB PO SCH (09:00)
[2016-06-22] MEDS: CARBAMIDE PEROXIDE 6.5% OTIC SOLN 15ML AS SCH ×2 (09:01→21:08)
[2016-06-22] MEDS: LEVEMIR (INSULIN DETEMIR) 1 UNITS/0.01ML SC SCH (09:01)
[2016-06-22] MEDS: ASPIRIN 81 MG ENTERIC TAB PO SCH (09:01)
[2016-06-22] MEDS: FUROSEMIDE 40 MG/4 ML VIAL (J1940) IV SCH ×2 (09:47→16:56)
--- NOTE | 2016-06-22 14:13 | IPN ---
DATE: 06/22/2016 SUBJECTIVE: This is a 66-year-old male who was seen and examined at bedside. Overnight, no reported acute events. This morning, feels the same as yesterday. Yesterday afternoon while getting to the commode to have a bowel movement, he desaturated down to the 40s, but apparently was asymptomatic at that time. Shortness of breath is not worse today. No fevers, chills, chest pain, palpitations. Still reports loose bowel movements. OBJECTIVE: VITAL SIGNS: Blood pressure 117/66, heart rate 62, temperature 96.8, respiratory rate 24. He is on 35 FiO2. GENERAL: The patient is lying in bed comfortable, no acute distress. Alert, awake and oriented times three. Pleasant, cooperative. HEENT: Normocephalic, atraumatic. Moist oral mucosa. NECK: Supple. Trachea midline. No jugular venous distention (JVD). CHEST: Symmetric chest rise. No accessory muscle use at rest but with exertion. Breath sounds with persistent coarse bilateral lung bases with inspiratory crackles. HEART: Regular rate and rhythm. S1, S2 present. ABDOMEN: Soft, nondistended, nondistended. Bowel sounds positive. No guarding. No rebound. EXTREMITIES: Trace pedal edema. LABORATORY DATA: WBC 12.6, hemoglobin 7.6, hematocrit 35.1, platelets 316. WBC improved from yesterday, 14.4, sodium 140, potassium 3.7, chloride 103, carbon dioxide 30, BUN 39, creatinine 0.56, glucose 132, calcium 7.6. Clostridium (C.) difficile culture negative. IMPRESSION/PLAN: Mr. Velazquez is a 66-year-old male who initially presented for acute respiratory failure. 1. Hypoxia. The patient unfortunately continues to have hypoxia with a minimal amount of exertion. Currently is planned for diuresis today, per Dr. Todd's recommendation. His Solu-Medrol is continued to be tapered down. On day 11 of steroids. There does not appear to be any significant improvement in his condition. 2. Diarrhea. C difficile stool was negative. Could be due to hypoalbuminemia. We will consider Imodium if worsening. 3. Diabetes with hyperglycemia. Continue Levemir 30 units every morning and insulin sliding scale. 4. Anemia with stool occult positive. Hemodynamically stable. Continue to monitor for now. If continues to decrease, will require 1 unit transfusion. 5. Atrial fibrillation, rate controlled. Off Xarelto per patient's request. 6. Coronary artery disease, on aspirin and Lipitor. He is status post stent placement. 7. Gastroesophageal reflux disease (GERD). Continue Protonix. 8. Hyperlipidemia. Continue Lipitor. 9. Deep vein thrombosis (DVT) prophylaxis. Sequential compression device (SCD) , TEDs. No pharmacological interventions due to anemia and FOBT positive. My preceptor for this patient encounter was Dr. Denton. The preceptor was physically present in the building during the encounter and was fully available. As needed, all aspects of the patient interview, examination, medical decision making process, and medical care plan development were reviewed and approved by the preceptor. The preceptor is aware and concurs with the plan as stated in the body of this note and will attest to such by his/her cosignature. TABATHA
[2016-06-22] MEDS ORDERED: FUROSEMIDE 40 MG/4 ML VIAL (J1940) IV SCH (17:00)
[2016-06-22] MEDS: ATORVASTATIN 20 MG TAB PO SCH (21:08)
[2016-06-23] VITALS (8 sets, daily range): BP systolic 100–122; BP diastolic 55–66
[2016-06-23] MEDS: NYSTATIN 500,000 U/5 ML SUSP UDC SS SCH ×5 (00:39→23:11)
[2016-06-23] MEDS: methylPREDNISolone INJ 125 MG/2 ML VIAL (J2930) IV SCH ×4 (00:39→23:12)
[2016-06-23] MEDS: IPRATROPIUM 0.5MG/ALBUTEROL 2.5MG INH SOL UD 3ML (DUONEB)(J7620) NEB SCH ×4 (01:38→20:13)
[2016-06-23 05:13] LABS: MEAN CORPUSCULAR HEMOGLOBIN 24.7 pg (27.0-33.0); MEAN CORPUSCULAR HGB CONC 30.9 g/dl (32.0-36.5); MEAN CORPUSCULAR VOLUME 80.1 fl (80.0-96.0); RED CELL DISTRIBUTION WIDTH 18.1 % (11.5-14.5); WHITE BLOOD COUNT 14.9 K/mm3 (4.0-10.0)
[2016-06-23 05:19] LABS: ANION GAP 8 MEQ/L (8-16); BLOOD UREA NITROGEN 36 MG/DL (7-18); CALCIUM LEVEL 7.5 MG/DL (8.8-10.2); CARBON DIOXIDE LEVEL 32 MEQ/L (21-32); CHLORIDE LEVEL 104 MEQ/L (98-107); CREATININE FOR GFR 0.47 MG/DL (0.70-1.30); GLOMERULAR FILTRATION RATE > 60.0 (>49); GLUCOSE, FASTING 92 MG/DL (80-110); SODIUM LEVEL 144 MEQ/L (136-145)
[2016-06-23] MEDS: SLF 3 ML SYR IV SCH ×3 (05:56→22:00)
[2016-06-23] MEDS ORDERED: POTASSIUM CHLORIDE 10 MEQ SR TABLET PO ONE ×3 (07:00→09:30)
[2016-06-23] MEDS: HumaLOG INSULIN (NovoLOG) PER UNIT SC SCH ×4 (07:30→20:14)
[2016-06-23] MEDS: RANOLAZINE 500 MG ER TAB PO SCH ×2 (09:27→20:14)
[2016-06-23] MEDS: PANTOPRAZOLE 40MG TAB (PROTONIX) PO SCH (09:27)
[2016-06-23] MEDS: ASPIRIN 81 MG ENTERIC TAB PO SCH (09:27)
[2016-06-23] MEDS: SERTRALINE HCL 50 MG TAB PO SCH (09:27)
[2016-06-23] MEDS: FUROSEMIDE 40 MG/4 ML VIAL (J1940) IV SCH ×2 (09:28→17:01)
[2016-06-23] MEDS: LEVEMIR (INSULIN DETEMIR) 1 UNITS/0.01ML SC SCH (09:28)
--- NOTE | 2016-06-23 18:45 | IPN ---
DATE: 06/23/2016 This is a 66 year-old male who was seen and examined at bedside. Overnight, no reported acute events. States that since he started on Lasix he had gotten up multiple times to urinate. His breathing has not changed compared to yesterday. Still dry cough. No fevers, chills, nausea, vomiting. His bowel movements have slowed down significantly. Had only one bowel movement since last night. OBJECTIVE: VITAL SIGNS: Blood pressure 122/66, heart rate 56, temperature 97.6, respiratory rate 22. Pulse ox 98% on Oxygen flow rate. Intake and output 1890 and 1500. Three bowel movements documented in the last 24 hours. GENERAL: The patient is lying in bed comfortable, no acute distress. He is alert, awake and oriented times three. Pleasant, cooperative. HEENT: Normocephalic, atraumatic. Moist oral mucosa. Nasal cannula in place. NECK: Supple. Trachea midline. No jugular venous distention (JVD). CHEST: Symmetric chest rise with accessory muscle use when exerting himself. Breath sounds with persistent coarse and bilateral inspiratory crackles. HEART: Regular rate and rhythm. Normal S1, S2 present. ABDOMEN: Soft, nondistended, nondistended. Bowel sounds positive. No guarding. EXTREMITIES: No pedal edema. Pedal pulses present bilateral. LABORATORY DATA: WBC 14.9, hemoglobin 7.7, hematocrit 24.8. No significant change compared to yesterday. platelets 333. Sodium 144, potassium 3, chloride 104, carbon dioxide 33, BUN 36, creatinine 0.47, glucose 92, magnesium 2. IMPRESSION/PLAN: Mr. Velazquez is a 66-year-old male who presented with acute respiratory failure. 1. Hypoxia. He was started on Lasix yesterday with plan for total of two days of treatment. He is also being tapered down on Solu-Medrol 125 mg IV and currently on every 8 hours. His breathing has not significantly shown any improvement or worsening in the last few days despite medication adjustment. He is on day 12 of high dose steroids. 2. Diabetes with hyperglycemia. Continue Levemir and insulin sliding scale. 3. Anemia continued to be hemodynamically stable. No significant change in his blood count today compared to yesterday. Continue to monitor for now. Patient was informed of his stool occult result and was offered further investigation during this admission including EGD and colonoscopy but declined which we believe is reasonable considering his poor pulmonary status and would not be able to tolerate any form of sedation without respiratory compromise. 4. Atrial fibrillation rate control. He is off Xarelto due to anemia and stool occult positive. The patient was made aware of risk of stroke and request to be off medication. 5. Coronary artery disease. Continue aspirin and Lipitor. He is also status post stent placement. No on beta nasir likely secondary to underlying lung disease. 6. Gastroesophageal reflux disease. Continue Protonix. 7. Depression. Continue Zoloft 50 mg by mouth daily. 8. Deep vein thrombosis prophylaxis. Sequential compression devices (SCDs) and thromboembolic deterrent stockings (TEDS). No pharmacological intervention secondary to anemia and stool occult positive. My preceptor for this patient encounter was Dr. Drew Denton. The preceptor was physically present in the building during the encounter and was fully available as needed. All aspects of the patient interview, examination, medical decision making process, and medical care plan development were reviewed and approved by the preceptor. The preceptor is aware and concurs with the plan as stated in the body of this note and will attest to such by his/her co-signature. TABATHA
[2016-06-23] MEDS: ATORVASTATIN 20 MG TAB PO SCH (20:14)
[2016-06-24] VITALS: BP 107/59
[2016-06-24] MEDS: IPRATROPIUM 0.5MG/ALBUTEROL 2.5MG INH SOL UD 3ML (DUONEB)(J7620) NEB SCH ×4 (01:47→19:49)
[2016-06-24 04:00] VITALS: BP 119/63
[2016-06-24] MEDS: SLF 3 ML SYR IV SCH ×3 (05:02→21:34)
[2016-06-24] MEDS: NYSTATIN 500,000 U/5 ML SUSP UDC SS SCH ×3 (05:02→17:54)
[2016-06-24 05:20] LABS: MEAN CORPUSCULAR HEMOGLOBIN 24.5 pg (27.0-33.0); MEAN CORPUSCULAR HGB CONC 30.6 g/dl (32.0-36.5); MEAN CORPUSCULAR VOLUME 80.1 fl (80.0-96.0); RED CELL DISTRIBUTION WIDTH 18.4 % (11.5-14.5); WHITE BLOOD COUNT 18.7 K/mm3 (4.0-10.0)
[2016-06-24 05:27] LABS: ANION GAP 7 MEQ/L (8-16); BLOOD UREA NITROGEN 39 MG/DL (7-18); CALCIUM LEVEL 7.5 MG/DL (8.8-10.2); CARBON DIOXIDE LEVEL 31 MEQ/L (21-32); CHLORIDE LEVEL 104 MEQ/L (98-107); GLOMERULAR FILTRATION RATE > 60.0 (>49); GLUCOSE, FASTING 136 MG/DL (80-110); POTASSIUM SERUM 3.6 MEQ/L (3.5-5.1); SODIUM LEVEL 142 MEQ/L (136-145)
--- NOTE | 2016-06-24 07:24 | REP ---
Clinical: Hypoxemia. Comparison: 06/18/2016. Findings: Chronic interstitial changes and possible underlying fibrosis is suggested with superimposed mid to lower lobe infiltrates. Findings are relatively stable when compared to prior examination. Interstitial edema cannot be excluded as well. No definite effusion. No pneumothorax. Cardiomegaly stable. Skeletal structures intact. Impression: Chronic interstitial changes/fibrosis. Superimposed lower lobe infiltrates and possible interstitial edema similar to prior examination. Signed by Timothy Gonzalez MD 06/24/2016 07:15 A
[2016-06-24] MEDS: methylPREDNISolone INJ 125 MG/2 ML VIAL (J2930) IV SCH ×2 (07:55→15:57)
[2016-06-24] MEDS: HumaLOG INSULIN (NovoLOG) PER UNIT SC SCH ×4 (07:55→21:33)
[2016-06-24 08:00] VITALS: BP 121/66
[2016-06-24] MEDS: RANOLAZINE 500 MG ER TAB PO SCH ×2 (08:57→21:34)
[2016-06-24] MEDS: LEVEMIR (INSULIN DETEMIR) 1 UNITS/0.01ML SC SCH (08:57)
[2016-06-24] MEDS: ASPIRIN 81 MG ENTERIC TAB PO SCH (08:57)
[2016-06-24] MEDS: PANTOPRAZOLE 40MG TAB (PROTONIX) PO SCH (08:57)
[2016-06-24] MEDS: SERTRALINE HCL 50 MG TAB PO SCH (08:57)
[2016-06-24 12:00] VITALS: BP 131/69
--- NOTE | 2016-06-24 13:56 | REP ---
CT study of the chest without contrast: High-resolution study. History: Nonspecific interstitial pneumonitis. CT technique: Helical scanning is acquired and contiguous 3 mm axial images are reformatted. Coronal and sagittal multiplanar reformation images are generated and reviewed. In addition, 1.25 mm thick slices are obtained through the pulmonary parenchyma at [address] findings: Incidental note is made of diffuse hyperdensity of the liver parenchyma compared to the spleen. There is a small accessory splenule. Noncontrast CT study shows questionable increased density in the left ventricular myocardium. High resolution and standard pulmonary parenchymal windows show extensive and severe interstitial lung disease with lobular septal thickening. There are multiple patchy confluent areas of relatively hyperdense pulmonary parenchymal consolidation. This is lower lobe predominant. The left lung shows more extensive involvement than the right. Specifically, in the right upper lobe posterior segment, disease has evolved in-between the June 09 and June 11 studies. There is a small quantity of subpulmonic fluid in the left chest. Otherwise no significant pleural effusion. There is a small pericardial effusion. Prominent vascular calcification is noted. The central pulmonary arteries are quite dilated consistent with pulmonary arterial hypertension. Impression: Relatively hyperdense pulmonary opacities with diffuse and severe interstitial lung disease along with hyperdense liver and possibly myocardium. 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 The possibility of superimposed chronic interstitial lung disease cannot be excluded. There is also a pulmonary nodule visible in the right middle lobe which merits follow-up as previously seen. Signed by Joselito Tolbert MD 06/24/2016 07:27 P
--- NOTE | 2016-06-24 14:52 | IPN ---
DATE: 06/24/2016 SUBJECTIVE: This is a 66-year-old male who was seen and examined at bedside. Overnight, his bowel movements have slowed down significantly. Bowel movements are now more formed. Shortness of breath is still the same; however, states that his recovery period is quicker. No chest pain, fevers, chills, nausea, vomiting. Overnight, his oxygen flow rate had decreased. OBJECTIVE: VITAL SIGNS: Blood pressure 1121/66, heart rate 62, temperature 96.6, respiration rate 24, pulse oximetry 92% on 25. GENERAL: The patient is sitting in bed comfortable, no acute distress. Alert, awake and oriented times three. Pleasant, cooperative. HEENT: Normocephalic, atraumatic. Moist oral mucosa. NECK: Supple. Trachea midline. CHEST: Symmetric chest rise with accessory muscle use with exertion. Breath sounds with persistent inspiratory crackles, more so on his left side. ABDOMEN: Soft, nondistended, nondistended. Bowel sounds positive. No guarding. No rebound. EXTREMITIES: There is edema by the ankles. LABORATORY DATA: WBC 18.7, hemoglobin 8, hematocrit 26.2, platelets 348. Sodium 142, potassium 3.6, chloride 104, carbon dioxide 31, BUN 39, creatinine 0.6, glucose 136, calcium 7.5. Chest x-ray with chronic interstitial changes. No significant change. IMPRESSION/PLAN: Mr. Velazquez is a 66-year-old male with respiratory failure. 1. Hypoxia due to underlying pulmonary fibrosis. He was given a total of two days' worth of Lasix. He is positive for fluid since admission. He is on day #13 of steroids without significant improvement. Did discuss with Dr. Blanton. Greatly appreciate his assistance. Currently has high resolution CT pending. 2. Diabetes with hyperglycemia. He is on Levemir with insulin sliding scale. 3. Atrial fibrillation, rate controlled. Off Xarelto due to anemia and positive stool occult. 4. Anemia, no significant change compared to yesterday. Continue to monitor for now. 5. Coronary artery disease. Continue aspirin and Lipitor. Status post stent placement. 6. Gastroesophageal reflux disease (GERD). Continue Protonix. 7. Depression. Continue Zoloft. 8. Deep vein thrombosis (DVT) prophylaxis. Sequential compression device (SCD) , TEDs. No pharmacological interventions secondary to anemia and stool occult positive. My preceptor for this patient encounter was Dr. Denton. The preceptor was physically present in the building during the encounter and was fully available. As needed, all aspects of the patient interview, examination, medical decision making process, and medical care plan development were reviewed and approved by the preceptor. The preceptor is aware and concurs with the plan as stated in the body of this note and will attest to such by his/her cosignature. TABATHA
[2016-06-24 16:00] VITALS: BP 111/58
[2016-06-24 20:00] VITALS: BP 100/62
[2016-06-24] MEDS: ATORVASTATIN 20 MG TAB PO SCH (21:34)
[2016-06-25] VITALS: BP 105/57
[2016-06-25] MEDS: methylPREDNISolone INJ 125 MG/2 ML VIAL (J2930) IV SCH ×2 (00:01→08:45)
[2016-06-25] MEDS: NYSTATIN 500,000 U/5 ML SUSP UDC SS SCH ×2 (00:01→05:50)
[2016-06-25] MEDS: IPRATROPIUM 0.5MG/ALBUTEROL 2.5MG INH SOL UD 3ML (DUONEB)(J7620) NEB SCH ×4 (01:32→20:52)
[2016-06-25 04:00] VITALS: BP 114/68
[2016-06-25 05:14] LABS: MEAN CORPUSCULAR HEMOGLOBIN 24.9 pg (27.0-33.0); MEAN CORPUSCULAR HGB CONC 30.9 g/dl (32.0-36.5); MEAN CORPUSCULAR VOLUME 80.6 fl (80.0-96.0); RED CELL DISTRIBUTION WIDTH 18.5 % (11.5-14.5); WHITE BLOOD COUNT 17.6 K/mm3 (4.0-10.0)
[2016-06-25 05:16] LABS: ANION GAP 7 MEQ/L (8-16); BLOOD UREA NITROGEN 37 MG/DL (7-18); CALCIUM LEVEL 7.4 MG/DL (8.8-10.2); CARBON DIOXIDE LEVEL 30 MEQ/L (21-32); CHLORIDE LEVEL 105 MEQ/L (98-107); CREATININE FOR GFR 0.46 MG/DL (0.70-1.30); GLOMERULAR FILTRATION RATE > 60.0 (>49); GLUCOSE, FASTING 125 MG/DL (80-110); POTASSIUM SERUM 3.4 MEQ/L (3.5-5.1); SODIUM LEVEL 142 MEQ/L (136-145)
[2016-06-25] MEDS: SLF 3 ML SYR IV SCH ×3 (05:51→21:45)
[2016-06-25] MEDS ORDERED: POTASSIUM CHLORIDE 10 MEQ SR TABLET PO ONE (08:00)
[2016-06-25 08:26] VITALS: BP 110/60
[2016-06-25] MEDS: HumaLOG INSULIN (NovoLOG) PER UNIT SC SCH ×4 (08:44→21:00)
[2016-06-25] MEDS: RANOLAZINE 500 MG ER TAB PO SCH ×2 (08:45→21:45)
[2016-06-25] MEDS: LEVEMIR (INSULIN DETEMIR) 1 UNITS/0.01ML SC SCH (08:45)
[2016-06-25] MEDS: PANTOPRAZOLE 40MG TAB (PROTONIX) PO SCH (08:46)
[2016-06-25] MEDS: SERTRALINE HCL 50 MG TAB PO SCH (08:46)
[2016-06-25] MEDS: ASPIRIN 81 MG ENTERIC TAB PO SCH (08:46)
[2016-06-25 12:00] VITALS: BP 121/66
[2016-06-25 16:09] VITALS: BP 123/62
[2016-06-25 20:00] VITALS: BP 111/66
[2016-06-25] MEDS: predniSONE 10 MG TAB PO SCH (21:45)
[2016-06-25] MEDS: ATORVASTATIN 20 MG TAB PO SCH (21:45)
[2016-06-26] VITALS: BP 117/65
--- NOTE | 2016-06-26 01:23 | IPN ---
DATE OF SERVICE: 06/25/2016 TIME OF VISIT: 10 a.m. SUBJECTIVE: This is a 66-year-old male who was seen and examined at bedside. Overnight, he was put back on increased oxygen, high flow, currently he is on 35. Reports no new symptoms today. Shortness of breath is the same, but he thinks he is somewhat improved in terms of his recovery time frame. Bowel movement is a lot more formed. Continues to deny any chest pain, nausea, vomiting, fevers, chills. OBJECTIVE: VITAL SIGNS: Blood pressure 110/60, heart rate 62, temperature 98, respiration rate 24, pulse oximetry 96% on 35. Intake and output last 24 hours: 1820 and 950. GENERAL: Patient was sitting in bed comfortable, no acute distress. He is pleasant, cooperative, alert, awake and oriented times three. HEENT: Normocephalic, atraumatic. Moist oral mucosa. NECK: Supple. Trachea midline. No jugular venous distention (JVD). CHEST: Symmetric chest rise with very minimal accessory muscle use with leaning forward. Breath sounds no significant change, persistent inspiratory crackles bilateral. ABDOMEN: Soft, nontender, nondistended. Bowel sounds positive. No guarding. No rebound. EXTREMITIES: Trace edema by his ankles. LABORATORY DATA: WBC 17.6 decreased from yesterday 18.7, hemoglobin 7.8 mild decrease from yesterday 8, hematocrit 25.1, platelets 303. Sodium 142, potassium 3.4, chloride 105, carbon dioxide 30, BUN 37, creatinine 0.46, glucose 125, calcium 7.4, magnesium 2. CT chest showed relatively hyperdense pulmonary opacity with diffuse severe interstitial lung disease along with hyperdense liver and possibly myocardium. 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 The possibility of superimposed chronic interstitial lung disease could not be excluded. There is also pulmonary nodule visible in the right middle lobe. IMPRESSION AND PLAN: 1. 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 Greatly appreciate Dr. Blanton's assistance. Continue DuoNeb treatment. 2. Diabetes with hyperglycemia. Hopefully, his fingersticks will be better controlled with a tapering dose of steroids. Currently is on Levemir 30 units and insulin sliding scale. 3. Atrial fibrillation. Rate is controlled. He is not on Xarelto per patient' s request. Amiodarone has been discontinued due to concern for pulmonary toxicity. 4. Anemia. There is mild drop in hemoglobin today compared to yesterday. He continues to be hemodynamically stable. 5. Coronary artery disease (CAD). Continue aspirin and Lipitor. Previously had a stent placement. 6. Depression. Continue home dose Zoloft. 7. Gastroesophageal reflux disease (GERD). Continue Protonix 40 mg daily. 8. Deep vein thrombosis (DVT) prophylaxis. Sequential compression devices (SCDs), thromboembolism deterrents (TEDs). No pharmacological interventions secondary to anemia and positive fecal occult blood test (FOBT). My preceptor for this patient encounter was Dr. Denton. The preceptor was physically present in the building during the encounter and was fully available as needed. All aspects of the patient interview, examination, medical decision making process, and medical care plan development were reviewed and approved by the preceptor. The preceptor is aware and concurs with the plan as stated in the body of this note and will attest to such by his/her cosignature. TABATHA
[2016-06-26] MEDS: IPRATROPIUM 0.5MG/ALBUTEROL 2.5MG INH SOL UD 3ML (DUONEB)(J7620) NEB SCH ×4 (01:33→20:38)
[2016-06-26 04:00] VITALS: BP 126/65
[2016-06-26 04:51] LABS: ANION GAP 7 MEQ/L (8-16); BLOOD UREA NITROGEN 33 MG/DL (7-18); CALCIUM LEVEL 7.8 MG/DL (8.8-10.2); CARBON DIOXIDE LEVEL 30 MEQ/L (21-32); CHLORIDE LEVEL 106 MEQ/L (98-107); CREATININE FOR GFR 0.52 MG/DL (0.70-1.30); GLOMERULAR FILTRATION RATE > 60.0 (>49); GLUCOSE, FASTING 57 MG/DL (80-110); POTASSIUM SERUM 3.9 MEQ/L (3.5-5.1); SODIUM LEVEL 143 MEQ/L (136-145)
[2016-06-26] MEDS: SLF 3 ML SYR IV SCH ×3 (04:52→20:33)
[2016-06-26 05:01] LABS: MEAN CORPUSCULAR HEMOGLOBIN 24.7 pg (27.0-33.0); MEAN CORPUSCULAR HGB CONC 30.8 g/dl (32.0-36.5); PLATELET COUNT, AUTOMATED 368 k/mm3 (150-450); RED CELL DISTRIBUTION WIDTH 18.4 % (11.5-14.5)
[2016-06-26 05:44] LABS: EOSINOPHILS 1 % (0-5)
[2016-06-26 05:45] LABS: MICROCYTOSIS 1+
[2016-06-26 05:46] LABS: ANISOCYTOSIS 2+; HYPOCHROMASIA 2+
[2016-06-26] MEDS: HumaLOG INSULIN (NovoLOG) PER UNIT SC SCH ×4 (07:30→20:33)
[2016-06-26 08:10] VITALS: BP 135/59
[2016-06-26] MEDS: RANOLAZINE 500 MG ER TAB PO SCH ×2 (08:29→20:33)
[2016-06-26] MEDS: ASPIRIN 81 MG ENTERIC TAB PO SCH (08:29)
[2016-06-26] MEDS: SERTRALINE HCL 50 MG TAB PO SCH (08:29)
[2016-06-26] MEDS: predniSONE 20 MG TAB PO SCH (08:29)
[2016-06-26] MEDS: PANTOPRAZOLE 40MG TAB (PROTONIX) PO SCH (08:29)
[2016-06-26] MEDS: LEVEMIR (INSULIN DETEMIR) 1 UNITS/0.01ML SC SCH ×2 (09:00→10:29)
[2016-06-26 11:22] VITALS: BP 125/74
[2016-06-26 16:23] VITALS: BP 113/60
[2016-06-26] MEDS: FUROSEMIDE 20 MG/2 ML VIAL (J1940) IV SCH (17:21)
[2016-06-26 20:00] VITALS: BP 101/55
[2016-06-26] MEDS: ATORVASTATIN 20 MG TAB PO SCH (20:33)
[2016-06-26] MEDS: predniSONE 10 MG TAB PO SCH (20:33)
[2016-06-27] VITALS: BP 123/71
[2016-06-27] MEDS: IPRATROPIUM 0.5MG/ALBUTEROL 2.5MG INH SOL UD 3ML (DUONEB)(J7620) NEB SCH ×4 (01:13→19:36)
[2016-06-27 04:00] VITALS: BP 121/68
[2016-06-27] MEDS: SLF 3 ML SYR IV SCH ×3 (04:10→21:06)
[2016-06-27 04:38] LABS: BASO % 0.1 % (0.0-1.0); EOS # 0.2 K/mm3 (0.0-0.50); EOS % 0.9 % (0.0-3.0); LARGE UNSTAINED CELL # 0.1 K/mm3 (0.0-0.4); LARGE UNSTAINED CELL % 0.4 % (0.0-4.0); LYMPH # 0.5 K/mm3 (1.5-4.5); LYMPH % 2.8 % (24.0-44.0); MEAN CORPUSCULAR HEMOGLOBIN 24.6 pg (27.0-33.0); MEAN CORPUSCULAR HGB CONC 30.3 g/dl (32.0-36.5); MEAN CORPUSCULAR VOLUME 81.2 fl (80.0-96.0); MONO # 0.5 K/mm3 (0.0-0.8); NEUTROPHILS # 15.6 K/mm3 (1.8-7.7); NEUTROPHILS % 92.7 % (36.0-66.0); PLATELET COUNT, AUTOMATED 272 k/mm3 (150-450); RED CELL DISTRIBUTION WIDTH 18.9 % (11.5-14.5); WHITE BLOOD COUNT 16.8 K/mm3 (4.0-10.0)
[2016-06-27 04:57] LABS: ANION GAP 5 MEQ/L (8-16); BLOOD UREA NITROGEN 32 MG/DL (7-18); CALCIUM LEVEL 7.5 MG/DL (8.8-10.2); CARBON DIOXIDE LEVEL 30 MEQ/L (21-32); CHLORIDE LEVEL 108 MEQ/L (98-107); CREATININE FOR GFR 0.49 MG/DL (0.70-1.30); GLOMERULAR FILTRATION RATE > 60.0 (>49); GLUCOSE, FASTING 79 MG/DL (80-110); POTASSIUM SERUM 3.9 MEQ/L (3.5-5.1); SODIUM LEVEL 143 MEQ/L (136-145)
[2016-06-27] MEDS: HumaLOG INSULIN (NovoLOG) PER UNIT SC SCH ×4 (07:28→21:00)
[2016-06-27 08:00] VITALS: BP 130/73
[2016-06-27] MEDS: SERTRALINE HCL 50 MG TAB PO SCH (08:49)
[2016-06-27] MEDS: ASPIRIN 81 MG ENTERIC TAB PO SCH (08:49)
[2016-06-27] MEDS: predniSONE 20 MG TAB PO SCH (08:49)
[2016-06-27] MEDS: PANTOPRAZOLE 40MG TAB (PROTONIX) PO SCH (08:49)
[2016-06-27] MEDS: RANOLAZINE 500 MG ER TAB PO SCH ×2 (08:50→21:00)
[2016-06-27] MEDS: FUROSEMIDE 20 MG/2 ML VIAL (J1940) IV SCH ×2 (08:50→17:22)
[2016-06-27] MEDS: LEVEMIR (INSULIN DETEMIR) 1 UNITS/0.01ML SC SCH (09:00)
[2016-06-27 12:00] VITALS: BP 105/59
[2016-06-27 16:00] VITALS: BP 127/75
--- NOTE | 2016-06-27 18:27 | IPN ---
DATE: 06/26/2016 SUBJECTIVE: Mr. Velazquez is feeling okay, (cut off) especially with exertion he gets to the toilet or even with eating. OBJECTIVE: VITAL SIGNS: Temperature is 98, pulse 68, respiratory rate 26, repeat is 22, blood pressure 126/65, 97% on 35% comfort flow. Intake and output notable for a positive fluid balance of 1470. Weight is 70.1 kg. GENERAL: He is awake, appropriately interactive, pleasantly conversant. HEENT: Mucous membranes are moist. LUNGS: Breathing is symmetrically diminished. There are coarse airway sounds throughout. He is somewhat tachypneic on exam with respiratory rate of 24. I did not appreciate any wheezes. HEART: Regular rate and rhythm. ABDOMEN: Soft, doughy, nontender. LABORATORY DATA: Sodium is 143, creatinine is 0.52. White cell count is 25, hemoglobin is 8.6, and platelets of 868. ASSESSMENT: This is a 66-year-old with ongoing and severe hypoxia. PLAN: 1. Respiratory. Patient continues on 35 liters of comfort flow. 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 Continues to be guided by Dr. Blanton's recommendations. 2. Diabetes. Patient has diabetes with hyperglycemia. Steroids are currently being tapered. He continues on Levemir, can adjust to sliding scale. 3. Patient has ongoing anemia. No role for transfusion at this time. 4. Patient has coronary artery disease on aspirin and Lipitor. She has a previous coronary stent. 5. Patient has depression. 6. Patient has gastroesophageal reflux disease (GERD). 7. Patient has appropriate mechanical deep vein thrombosis (DVT) prophylaxis. 8. Patient has leukocytosis with a white cell count as high as it has been during the course of his stay, which may be related to use of high-dose steroids.
--- NOTE | 2016-06-27 19:09 | IPN ---
DATE: 06/27/2016 Mr. Velazquez is feeling the same today. He gets short of breath when he is out of bed. No chest pain. He is not producing any sputum. Temperature is 97.4, pulse 67, respiratory rate 29, blood pressure 127/75, 82% on 40% nasal cannula with Comfort Sahil. Positive fluid balance of 640 yesterday, negative fluid balance today of -550 with three bowel movements noted. Weight is 71.1 kg. He is awake, appropriately interactive. Remembers me from previous encounters. Mucous membranes are moist. Neck is supple. Breathing is somewhat tachypneic as he has just gotten back into bed. He is not cyanotic. Increased I:E ratio. Somewhat diminished aeration. Heart is distant sounding. Normal S1, S2. Abdomen is soft, doughy. White cell count is 16.1, hemoglobin 8 and platelets of 272. Sodium 143, potassium 3.9, chloride 108, bicarbonate 30, BUN 32, creatinine 0.49. ASSESSMENT: This is a 66-year-old with ongoing and severe hypoxia. PLAN: 1. Respiratory. The patient continues on high volumes of Comfort Sahil, most likely related to amiodarone toxicity. He is being followed by Dr. Blanton and will continue to be guided by his input. 2. The patient has diabetes. The patient has diabetes with hyperglycemia and episodes also of lower blood sugars, which has been difficult to control. We held his long-acting insulin today. Steroids have been somewhat weaned. 3. The patient has ongoing anemia. No role for transfusions. Underlying cause of this remains somewhat cryptic. Although his stool for hemoccult is positive, obviously he is not a candidate for upper or lower endoscopy at this point. 4. The patient has coronary artery disease, on aspirin and Lipitor. He has a previous coronary stent. 5. The patient has a history of depression. 6. The patient has gastroesophageal reflux disease (GERD). 7. The patient has appropriate deep vein thrombosis (DVT) prophylaxis. 8. The patient has ongoing leukocytosis, which is most likely related to steroid use.
[2016-06-27 20:00] VITALS: BP 112/66
[2016-06-27] MEDS: ATORVASTATIN 20 MG TAB PO SCH (21:00)
[2016-06-27] MEDS: predniSONE 10 MG TAB PO SCH (21:00)
[2016-06-28] VITALS (54 sets, daily range): BP systolic 71–198; BP diastolic 46–103; O2SAT 96
[2016-06-28] MEDS: IPRATROPIUM 0.5MG/ALBUTEROL 2.5MG INH SOL UD 3ML (DUONEB)(J7620) NEB SCH ×4 (02:00→19:17)
[2016-06-28 03:30] LABS: ABG BASE EXCESS 1.8 (-2.0-2.0); ABG HCO3 24.6 MEQ/L (22.0-26.0); ABG PARTIAL PRESSURE CO2 31.6 mmHg (35.0-45.0); ABG STANDARD HCO3 25.8 MEQ/L (22.0-26.0); ABG TOTAL CO2 25.6 MEQ/L (23.0-31.0); ABG pH (ARTERIAL) 7.509 UNITS (7.350-7.450)
[2016-06-28] MEDS ORDERED: FUROSEMIDE 100 MG/10 ML VIAL (J1940) IV ONE (03:30)
[2016-06-28 03:31] LABS: ABG PARTIAL PRESSURE O2 43.4 mmHg (75.0-100.0)
[2016-06-28] MEDS ORDERED: ETOMIDATE INJ 20MG/10ML VIAL As Ordered ONE (03:37)
[2016-06-28] MEDS ORDERED: SUCCINYLCHOLINE INJ 200 MG/10 ML VIAL (J0330) As Ordered ONE (03:38)
[2016-06-28] MEDS ORDERED: PROPOFOL 1,000 MG/100 ML VIAL As Ordered ONE (03:50)
[2016-06-28] MEDS ORDERED: SUCCINYLCHOLINE INJ 200 MG/10 ML VIAL (J0330) IV STA (03:53)
[2016-06-28] MEDS ORDERED: ETOMIDATE INJ 20MG/10ML VIAL IV STA (03:53)
[2016-06-28] MEDS ORDERED: PROPOFOL 1,000 MG in APPROPRIATE DILUENT 1 EA IV SCH (04:00)
[2016-06-28] MEDS ORDERED: MORPHINE 2 MG/ML 1ML SYRINGE IV PRN (04:00)
[2016-06-28] MEDS: CISATRACURIUM 200 MG in NS 480 ML IV SCH ×2 (04:30→13:19)
[2016-06-28] MEDS ORDERED: MIDAZOLAM INJ 2 MG/2 ML VIAL (J2250) As Ordered ONE ×2 (04:30→04:31)
[2016-06-28] MEDS ORDERED: CISATRACURIUM 10MG/ML 20 ML VIAL As Ordered ONE (04:31)
[2016-06-28] MEDS ORDERED: CISATRACURIUM 200 MG in NS 480 ML IV SCH (04:35)
[2016-06-28] MEDS ORDERED: MIDAZOLAM INJ 2 MG/2 ML VIAL (J2250) IV STA ×2 (04:36→05:13)
[2016-06-28] MEDS ORDERED: REFRIGERATOR IV KEYS XX PRN (05:00)
[2016-06-28] MEDS: MIDAZOLAM HCL 100 MG in D5W 80 ML IV SCH (05:39)
--- NOTE | 2016-06-28 05:49 | RO ---
DATE OF PROCEDURE: 06/28/2016 PREPROCEDURE DIAGNOSIS: Acute hypoxic respiratory failure. POSTPROCEDURE DIAGNOSIS: Acute hypoxic respiratory failure. PROCEDURE: Emergent intubation. SURGEON: Dr. Nicki Naranjo. SUPERVISING PHYSICIAN: Dr. Crews. ANESTHESIA: ESTIMATED BLOOD LOSS: SEDATION: 30 mg IV push off etomidate and 100 mg of IV Succinylcholine. Patient was breathing 100% on rebreather and 40 liters of high flow nasal cannula with a saturation of 81. Patient was placed in supine position. Etomidate and Succinylcholine was given. Subsequently oxygen was given. Vital scope was used and patient's anatomy was visualized and endotracheal tube was placed. Lip line 22 cm and capnometer visualized other change. Bilateral breath sounds were heard. Patient was connected to the ventilator with ventilator setting assist control 18, 430. PEEP of 10. FiO2 of 100%. Saturation 92. Sedation Propofol was ordered. X-ray was ordered for confirmation of ET tube placement. Estimated blood loss none. Patient tolerated the procedure with no complication.
--- NOTE | 2016-06-28 05:50 | RO ---
DATE OF PROCEDURE: 06/28/2016 PREOPERATIVE DIAGNOSIS: Hypotension. POSTOPERATIVE DIAGNOSIS: Hypotension. PROCEDURE: Right internal jugular (IJ) triple lumen central line. SURGEON: Nicki Naranjo MD [employer] SUPERINTENDENT: None. ANESTHESIA: 1% local lidocaine was given. SEDATION: Patient on propofol drip. VENTILATION: Patient connected to ventilator with vent setting of 14/30 <<0:42>> , 100% FiO2 and PEEP of 10. ESTIMATED BLOOD LOSS: 10 mL. DESCRIPTION OF PROCEDURE: Patient was placed in Trendelenburg position. Site was cleaned with Chloraprep and covered in the sterile fashion. Ultrasound with sterile cover was used to visualize right internal jugular and 1% lidocaine was injected with ultrasound guidance. Subsequently, needle was inserted. A flash of blood was obtained. Wire was inserted through the needle. Needle was removed. Wire position was confirmed with ultrasound and subsequently, site was dilated and triple lumen central line was inserted over guidewire. It was wired, subsequently being removed and all three port of the central line was flushed with normal saline and triple lumen central line was secured with three stitches. Patient tolerated the procedure with no complications. X-ray was ordered for confirmation.
[2016-06-28] MEDS: HumaLOG INSULIN (NovoLOG) PER UNIT SC SCH ×4 (05:57→23:21)
[2016-06-28] MEDS ORDERED: SODIUM CHLORIDE 0.9% INJ 10 ML SYR IV PRN (06:00)
[2016-06-28 06:01] LABS: ABG BASE EXCESS -0.3 (-2.0-2.0); ABG HCO3 29.6 MEQ/L (22.0-26.0); ABG PARTIAL PRESSURE O2 76.2 mmHg (75.0-100.0); ABG STANDARD HCO3 24.1 MEQ/L (22.0-26.0); ABG TOTAL CO2 32.1 MEQ/L (23.0-31.0)
[2016-06-28 06:03] LABS: ABG pH (ARTERIAL) 7.176 UNITS (7.350-7.450)
[2016-06-28 06:04] LABS: ABG PARTIAL PRESSURE CO2 81.8 mmHg (35.0-45.0)
--- NOTE | 2016-06-28 06:12 | CCN ---
DATE: 06/28/2016 Critical care time was 1 hour and 30 minutes. This excludes all procedures. HISTORY OF PRESENT ILLNESS: I was called urgently to the patient's bedside for severe hypoxia. The patient had been on 35 liters of high-flow nasal cannula over the past 3-4 days. He has evidence of interstitial lung disease with possible amiodarone toxicity. However, today he became progressively more hypoxic now on 45 liters of high-flow nasal cannula with a non-rebreather with saturations to the 70% range. On my arrival, the patient was tachypneic in respiratory distress and therefore he was intubated. I attended and monitor the physician intubating the patient. I placed the patient on volume control with a tidal volume of 420. Due to the severity of his hypoxia, I opted to initiate paralytics after sedation. The patient's oxygenation improved to 95% on 100% FiO2 with a PEEP of 5. Arterial blood gas is pending. A long discussion occurred with me and the attending physician. The patient has not been on pharmacologic deep venous thrombosis (DVT) prophylaxis over the past 6 days, however, had on thromboembolic deterrent stockings (TEDS) and Kendalls in place. Because of his anemia, positive guaiac stools and the inability to evaluate for pulmonary embolism, the question of anticoagulation was raised. At this point in time, the risk of anticoagulation seemed to outweigh the benefit and I felt that it was less likely that he had a pulmonary embolism rather than progression of the interstitial lung disease. A central line was placed due to low blood pressures after intubation. Sedation was switched from propofol to Versed. PHYSICAL EXAMINATION: Temperature is 96.5, pulse is 68 in a sinus rhythm, respiratory rate is ranging 24-28, blood pressure ranging 83/55 while on propofol to 120/74, oxygen saturation is 87% on 100% FiO2, PEEP of 10, however, the patient is not completely sedated or paralyzed at this point in time. General: The patient breath stacking, in respiratory distress. HEENT: Sclerae clear and anicteric. Pupils equal, react to light. Mucous membranes are moist without lesions. Tongue is midline. 8.0 endotracheal tube is in place without any significant secretions. Neck is supple. No tracheal deviation or mass. Right IJ is in place without surrounding erythema or exudate. Pulmonary: Decreased breath sounds throughout both lung troncoso without rhonchi. There are diffuse rales. No dullness to percussion. Abdomen: Soft, nontender, nondistended. No hepatosplenomegaly. No masses or hernia. Extremities: No cyanosis, clubbing or edema. Thromboembolic deterrent stockings (TEDS) and Kendalls are in place. Neurologic: No unilateral weakness. No evidence of seizure activity. LABORATORY EVALUATION: Chest x-ray shows adequate position of the endotracheal tube. Endotracheal tube is in good position approximately 3 cm above the jose g. A right IJ is in good position with the tip of the catheter in the SVC. Better aeration with diffuse interstitial markings. Left greater than right. White blood cell count is 16.8, hemoglobin 8.0, hematocrit of 26.3 with platelet count of 272, calcium is 7.5, magnesium of 2.0, sodium 143, potassium 3.9, chloride 108, bicarb of 30, BUN of 32, creatinine of 0.49. Arterial blood gas prior to intubation showed a pH of 7.51, pCO2 of 32, pAO2 of 43.4. IMPRESSION: 1. Acute hypoxic respiratory failure with significant worsening of hypoxia, likely progressive interstitial lung disease. Additional diuresis was attempted. However, the patient's blood pressure is soft at this point in time, likely propofol induced. I have discontinued his prednisone and placed him on IV Solu-Medrol due to the change in his respiratory status. At this point in time, he does not have signs of infection. He has previously been on 6 days of meropenem, vancomycin. His leukocytosis has decreased despite being on prednisone therapy and he has no significant mucous production. He has no dense lobar infiltrate on CXR. His imaging findings are consistent with interstitial lung disease. He has not been on anticoagulation in the past 6 days and therefore does run the risk of having a pulmonary embolism. However, he has had deep venous thrombosis (DVT) prophylaxis with thromboembolic deterrent stockings (TEDS) and Kendalls. Initial CT scan did not show any evidence of pulmonary embolism. I believe it is more likely that he has progression of his interstitial lung disease than a pulmonary embolism and I believe the risk of anticoagulation at this point in time outweighs the clinical suspicion of possible pulmonary embolism given his history of anemia and guaiac-positive stools. In order to improve oxygen delivery he is paralyzed. If he remains hypoxic prone positioning could be tried as salvage therapy as his anterior lung troncoso appear less effected. I believe he is a t too high risk for transfer for ECMO at this time. 2. Coronary artery disease. Will obtain EKG to ensure no evidence of myocardial ischemia. 3. Anemia appears to be a microcytic hypochromatic anemia consistent with iron-deficiency. However, the patient does have presentation of interstitial lung disease with anemia and therefore will check Spep, Upep. 4. Diabetes. Will continue with sliding scale insulin every 6. I have discontinued his scheduled Levemir as currently he has not had any oral intake. Will continue to monitor his blood sugars. If they remain above 200, will start insulin drip. 5. Severe protein malnourishment. Will initiate tube feeds within the next 24 hours. Currently, the patient is having significant severe respiratory distress and is paralyzed, therefore it was felt to best hold off for the first 12-24 hours of intubation prior to starting tube feeds. 6. History of atrial fibrillation currently in sinus rhythm. No evidence of stroke based on physical exam. 7. Leukocytosis, trending down most likely steroid induced. Will continue to monitor for signs of infection. 8. Hypotension occurred after sedation intubation most likely propofol induced. Will switch to Versed and continue to monitor for need for vasopressor therapy and IV fluids. 9. Gastrointestinal (GI) prophylaxis with Protonix switched to IV. 10. Deep venous thrombosis (DVT) prophylaxis. Heparin was added. The patient remains critically ill with severe hypoxic respiratory failure. Due to the severity of his hypoxia and the presentation of his pulmonary findings on chest imaging, I believe he is a very high risk of mortality. He requested that no other family be contacted however, now that he is incapacitated, Patient and Family Services consult was initiated. TABATHA
[2016-06-28] MEDS: HEPARIN SOD (PORCINE) 5000 UNITS/ML VIAL SQ SCH ×3 (06:14→21:36)
[2016-06-28] MEDS: methylPREDNISolone INJ 125 MG/2 ML VIAL (J2930) IV SCH ×3 (06:14→21:35)
[2016-06-28] MEDS: SLF 3 ML SYR IV SCH ×3 (06:14→21:35)
[2016-06-28] MEDS: SODIUM CHLORIDE 0.9% INJ 10 ML SYR IV SCH ×3 (06:15→21:36)
[2016-06-28 06:26] LABS: BASO % 0.1 % (0.0-1.0); EOS # 0.1 K/mm3 (0.0-0.50); EOS % 0.5 % (0.0-3.0); LARGE UNSTAINED CELL # 0.1 K/mm3 (0.0-0.4); LARGE UNSTAINED CELL % 0.5 % (0.0-4.0); LYMPH % 3.8 % (24.0-44.0); MEAN CORPUSCULAR HEMOGLOBIN 25.2 pg (27.0-33.0); MEAN CORPUSCULAR HGB CONC 30.1 g/dl (32.0-36.5); MEAN CORPUSCULAR VOLUME 83.8 fl (80.0-96.0); MONO # 0.6 K/mm3 (0.0-0.8); MONO % 2.1 % (0.0-5.0); PLATELET COUNT, AUTOMATED 263 k/mm3 (150-450); RED CELL DISTRIBUTION WIDTH 19.1 % (11.5-14.5); WHITE BLOOD COUNT 26.9 K/mm3 (4.0-10.0)
[2016-06-28 06:38] LABS: ANION GAP 7 MEQ/L (8-16); BLOOD UREA NITROGEN 29 MG/DL (7-18); CALCIUM LEVEL 7.8 MG/DL (8.8-10.2); CARBON DIOXIDE LEVEL 30 MEQ/L (21-32); CHLORIDE LEVEL 107 MEQ/L (98-107); CREATININE FOR GFR 0.57 MG/DL (0.70-1.30); GLOMERULAR FILTRATION RATE > 60.0 (>49); GLUCOSE, FASTING 124 MG/DL (80-110); POTASSIUM SERUM 4.3 MEQ/L (3.5-5.1); SODIUM LEVEL 144 MEQ/L (136-145)
--- NOTE | 2016-06-28 07:08 | REP ---
Clinical: Central line placement. Comparison: 06/24/2016. Findings: Endotracheal tube and nasogastric tube are in satisfactory position. Right central venous catheter of the internal jugular approach extends into the superior vena cava. Cardiac silhouette is upper limits of normal and stable. Lung troncoso demonstrate diffuse chronic interstitial changes and fibrosis honeycombing. Scattered mid to lower lobe infiltrates noted bilaterally are similar to prior examination. No definite effusion. No pneumothorax. Skeletal structures stable. Impression: 1. Central venous catheter in SVC. No pneumothorax. 2. Diffuse chronic interstitial changes/fibrosis/honeycombing with superimposed mid to lower lobe infiltrates similar to prior examination. Signed by Timothy Gonzalez MD 06/28/2016 07:00 A
--- NOTE | 2016-06-28 07:14 | REP ---
Clinical: Endotracheal tube placement. Comparison: 06/24/2016. Findings: Endotracheal tube is approximately 4.9 cm above the jose g. Mediastinum and cardiac silhouette are within normal limits. Diffuse chronic interstitial changes with fibrosis and honeycombing noted. Subtle superimposed lower lobe infiltrates are suggested. No definite effusion or pneumothorax. Skeletal structures intact. Impression: Endotracheal tube in satisfactory position. Chronic fibrosis/honeycombing with suspected superimposed lower lobe infiltrates. Signed by Timothy Gonzalez MD 06/28/2016 07:06 A
--- NOTE | 2016-06-28 07:15 | REP ---
Clinical: Increasing hypoxemia. Comparison: 06/24/2016. Findings: Cardiomegaly cannot be excluded. Diffuse chronic interstitial changes with fibrosis and honeycombing noted. Superimposed lower lobe infiltrate suggested. Cannot exclude layering effusion. No pneumothorax. Skeletal structures intact. Impression: Chronic interstitial changes with superimposed lower lobe infiltrates. Signed by Timothy Gonzalez MD 06/28/2016 07:07 A
[2016-06-28 08:50] LABS: ABG BASE EXCESS -2.5 (-2.0-2.0); ABG HCO3 28.8 MEQ/L (22.0-26.0); ABG PARTIAL PRESSURE O2 83.6 mmHg (75.0-100.0); ABG STANDARD HCO3 22.3 MEQ/L (22.0-26.0); ABG TOTAL CO2 31.7 MEQ/L (23.0-31.0)
[2016-06-28 08:53] LABS: ABG PARTIAL PRESSURE CO2 96.6 mmHg (35.0-45.0); ABG pH (ARTERIAL) 7.092 UNITS (7.350-7.450)
[2016-06-28] MEDS ORDERED: CHLORHEXIDINE GLUCONATE 0.12 % 15ML UDC (PERIDEX ORAL RINSE) SSP SCH (09:00)
[2016-06-28] MEDS ORDERED: FUROSEMIDE 40 MG/4 ML VIAL (J1940) IV SCH (09:00)
[2016-06-28] MEDS: CHLORHEXIDINE GLUCONATE 0.12 % 15ML UDC (PERIDEX ORAL RINSE) MT SCH ×2 (09:36→21:35)
[2016-06-28] MEDS: ASPIRIN 81 MG CHEW TABLET NG SCH (09:36)
--- NOTE | 2016-06-28 10:46 | ECGEPIP ---
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
[2016-06-28] MEDS: PANTOPRAZOLE 40MG INJ (PROTONIX) (C9113) IV SCH (10:52)
[2016-06-28] MEDS ORDERED: SODIUM CHLORIDE 0.9% 1000 ML IV ONE (11:45)
[2016-06-28 13:21] LABS: ABG BASE EXCESS -4.4 (-2.0-2.0); ABG HCO3 24.9 MEQ/L (22.0-26.0); ABG PARTIAL PRESSURE O2 87.2 mmHg (75.0-100.0); ABG STANDARD HCO3 20.8 MEQ/L (22.0-26.0); ABG TOTAL CO2 27.1 MEQ/L (23.0-31.0)
[2016-06-28 13:24] LABS: ABG PARTIAL PRESSURE CO2 70.6 mmHg (35.0-45.0); ABG pH (ARTERIAL) 7.165 UNITS (7.350-7.450)
[2016-06-29] VITALS (31 sets, daily range): BP systolic 94–139; BP diastolic 59–89; O2SAT 91–98
[2016-06-29] MEDS: IPRATROPIUM 0.5MG/ALBUTEROL 2.5MG INH SOL UD 3ML (DUONEB)(J7620) NEB SCH ×4 (01:08→19:19)
[2016-06-29 05:27] LABS: ABG BASE EXCESS -1.3 (-2.0-2.0); ABG HCO3 26.2 MEQ/L (22.0-26.0); ABG PARTIAL PRESSURE CO2 58.3 mmHg (35.0-45.0); ABG PARTIAL PRESSURE O2 112.8 mmHg (75.0-100.0); ABG STANDARD HCO3 23.4 MEQ/L (22.0-26.0)
[2016-06-29] MEDS: HEPARIN SOD (PORCINE) 5000 UNITS/ML VIAL SQ SCH ×3 (05:44→21:15)
[2016-06-29] MEDS: methylPREDNISolone INJ 125 MG/2 ML VIAL (J2930) IV SCH ×3 (05:44→21:15)
[2016-06-29] MEDS: SODIUM CHLORIDE 0.9% INJ 10 ML SYR IV SCH ×3 (05:44→21:15)
[2016-06-29] MEDS: HumaLOG INSULIN (NovoLOG) PER UNIT SC SCH ×3 (05:45→17:14)
[2016-06-29] MEDS: SLF 3 ML SYR IV SCH ×3 (05:45→21:16)
[2016-06-29 05:51] LABS: EOS % 0.2 % (0.0-3.0); LARGE UNSTAINED CELL # 0.1 K/mm3 (0.0-0.4); LARGE UNSTAINED CELL % 0.2 % (0.0-4.0); LYMPH # 0.2 K/mm3 (1.5-4.5); LYMPH % 1.1 % (24.0-44.0); MEAN CORPUSCULAR HEMOGLOBIN 24.9 pg (27.0-33.0); MEAN CORPUSCULAR HGB CONC 29.4 g/dl (32.0-36.5); MEAN CORPUSCULAR VOLUME 84.8 fl (80.0-96.0); MONO # 0.3 K/mm3 (0.0-0.8); MONO % 1.6 % (0.0-5.0); NEUTROPHILS # 20.1 K/mm3 (1.8-7.7); NEUTROPHILS % 96.8 % (36.0-66.0); PLATELET COUNT, AUTOMATED 190 k/mm3 (150-450); RED CELL DISTRIBUTION WIDTH 19.2 % (11.5-14.5); WHITE BLOOD COUNT 20.8 K/mm3 (4.0-10.0)
[2016-06-29 06:07] LABS: ANION GAP 8 MEQ/L (8-16); BLOOD UREA NITROGEN 48 MG/DL (7-18); CARBON DIOXIDE LEVEL 29 MEQ/L (21-32); CHLORIDE LEVEL 108 MEQ/L (98-107); CREATININE FOR GFR 0.87 MG/DL (0.70-1.30); GLUCOSE, FASTING 159 MG/DL (80-110); POTASSIUM SERUM 4.4 MEQ/L (3.5-5.1); SODIUM LEVEL 145 MEQ/L (136-145)
[2016-06-29 06:15] LABS: GLOMERULAR FILTRATION RATE > 60.0 (>49)
--- NOTE | 2016-06-29 07:04 | REP ---
Clinical: Hypoxemia. Technique: Portable semiupright. Comparison: 06/28/2016. Findings: Endotracheal tube approximately 4.5 cm above the jose g. Nasogastric tube courses below the left hemidiaphragm. Right IJ line with tip in the SVC. Diffuse chronic fibrosis and honeycombing again noted without change. Subtle perihilar and basilar opacities may be minimally improved when compared to prior examination. No definite effusion. No pneumothorax. Skeletal structures stable. Cardiac silhouette stable and within normal limits for portable technique. Impression: 1. Lines and tubes in satisfactory stable position. 2. Chronic fibrosis and honeycombing. Subtle improved lower lobe opacities suggested. Signed by Timothy Gonzalez MD 06/29/2016 06:55 A
[2016-06-29] MEDS: MIDAZOLAM HCL 100 MG in D5W 80 ML IV SCH (07:22)
[2016-06-29] MEDS: PANTOPRAZOLE 40MG INJ (PROTONIX) (C9113) IV SCH (08:36)
[2016-06-29] MEDS: CHLORHEXIDINE GLUCONATE 0.12 % 15ML UDC (PERIDEX ORAL RINSE) MT SCH ×2 (08:36→21:15)
[2016-06-29] MEDS: ASPIRIN 81 MG CHEW TABLET NG SCH (08:37)
--- NOTE | 2016-06-29 09:17 | CCN ---
DATE: 06/29/2016 Critical care time was 1 hour. This excludes all procedures. Mr. Velazquez remains in severe acute hypoxic respiratory failure, paralyzed in order to improve oxygen delivery due to the severity of his hypoxia. He is on volume control with low tidal volume settings and arterial blood gas shows permissive hypercapnia. He has had no arrhythmias overnight but remains critically ill, guarded due to the severity of his lung disease. PHYSICAL EXAMINATION: Temperature 97.1, blood pressure is 120/71, heart rate 85, respiratory rate 24, oxygen saturation is 99% on 100% FiO2. This was decreased when I was in the room to 65% FiO2 with PEEP of 10. Currently saturations are in the low 90s. General: The patient is sedated, paralyzed on mechanical ventilation, all set to lift paralytics off today. HEENT: Sclerae clear and anicteric. Pupils equal, react to light. Mucous membranes moist without lesions. Oropharynx without erythema or exudate. Neck is supple. No tracheal deviation or mass. Cardiac: Regular S1, S2 without audible murmur, rub or gallop. No elevated JVP. No peripheral edema. Pulmonary: Diffuse rales throughout without significant rhonchi or wheeze. No prolongation of expiratory phase. Abdomen: Soft, nontender, nondistended. No discernible splenomegaly. No active bowel sounds. Extremities: No cyanosis, clubbing or edema. Skin: No rash, jaundice, bruising. Neurologic: Paralyzed to a train of 2 out of 4. Laboratory evaluation shows sodium 145, potassium 4.4, chloride 108, bicarb of 29, BUN of 48, creatinine of 0.87 with a glucose of 159. White blood cell count of 20.8, hemoglobin 9.0, hematocrit of 30.4 with a platelet count of 190. Arterial blood gas shows a pH of 77, pCO2 of 58, pAO2 of 113. Inputs and outputs over the past 24 hours 1001 in, 1030 out. Chest x-ray reviewed this morning shows diffuse fibrosis, possibly some subtle improvement in the left lower lobe. Endotracheal tube is high at approximately 7 cm above the jose g and the right IJ is in place with the tip of the catheter in the superior vena cava. Respiratory syncytial virus (RSV) is negative. Methicillin-resistant staphylococcus aureus (MRSA) negative. There is no growth on blood cultures. Sputum shows yeast. ASSESSMENT/PLAN: 1. Acute hypoxic respiratory failure is secondary to interstitial lung disease requiring high FiO2, high PEEP at high risk for pneumothorax and progressive respiratory failure. Will wean paralytics today. Wean FiO2 to maintain oxygen saturation of 88-90. At this point in time, there is no evidence of acute infection. 2. Leukocytosis likely from high dose steroids. Will continue to monitor for signs and symptoms of infection. 3. Hypochromatic microcytic anemia likely secondary to iron deficiency. No need for transfusion at this point in time. Transfusion trigger is 7. 4. At risk for ICU neuropathy. Will place n.p.o. boots Attempt to wean paralytics. Unfortunately the patient still requires high dose steroids due to the severity of his lung disease. 5. Coronary artery disease. No evidence of acute myocardial infarction at this point in time. 6. History of atrial fibrillation currently in sinus rhythm on aspirin. 7. Gastrointestinal (GI) prophylaxis with Protonix. 8. Deep venous thrombosis (DVT) prophylaxis, heparin, thromboembolic deterrent stockings (TEDS) and sequential. 9. Disposition issues. The patient has Patient Family Services (PFS) consult requested numerous times. He has identified a friend as a healthcare proxy. It is not clear that this friend has been contacted to inform of his current clinical state. I suspect the patient will not survive this hospitalization. However, if aggressive measures are still desired, he will likely need tracheostomy in a week and prolonged mechanical ventilation.
[2016-06-29] MEDS: CISATRACURIUM 200 MG in NS 480 ML IV SCH ×2 (10:00→13:19)
[2016-06-29 13:52] LABS: ALBUMIN % 45.9 % (55.8-66.1); GAMMA GLOBULIN % 10.5 % (11.1-18.8)
[2016-06-29] MEDS: diltiaZEM 125 MG in NS 100 ML IV SCH (21:36)
[2016-06-30] VITALS (18 sets, daily range): BP systolic 91–126; BP diastolic 57–85
[2016-06-30] MEDS: HumaLOG INSULIN (NovoLOG) PER UNIT SC SCH ×2 (00:09→06:14)
[2016-06-30] MEDS: IPRATROPIUM 0.5MG/ALBUTEROL 2.5MG INH SOL UD 3ML (DUONEB)(J7620) NEB SCH ×2 (01:51→08:35)
[2016-06-30] MEDS ORDERED: DIGOXIN INJ 0.5 MG/2 ML AMP (J1160) IV STA (02:16)
[2016-06-30] MEDS: SODIUM CHLORIDE 0.9% INJ 10 ML SYR IV SCH (05:03)
[2016-06-30 05:41] LABS: ABG BASE EXCESS 0.1 (-2.0-2.0); ABG HCO3 27.2 MEQ/L (22.0-26.0); ABG PARTIAL PRESSURE CO2 57.3 mmHg (35.0-45.0); ABG PARTIAL PRESSURE O2 62.7 mmHg (75.0-100.0); ABG STANDARD HCO3 24.4 MEQ/L (22.0-26.0); ABG TOTAL CO2 28.9 MEQ/L (23.0-31.0); ABG pH (ARTERIAL) 7.294 UNITS (7.350-7.450)
[2016-06-30] MEDS: HEPARIN SOD (PORCINE) 5000 UNITS/ML VIAL SQ SCH (06:15)
[2016-06-30] MEDS: methylPREDNISolone INJ 125 MG/2 ML VIAL (J2930) IV SCH (06:16)
[2016-06-30] MEDS: diltiaZEM 125 MG in NS 100 ML IV SCH (06:19)
[2016-06-30] MEDS: SLF 3 ML SYR IV SCH (06:20)
[2016-06-30 06:38] LABS: ANION GAP 4 MEQ/L (8-16); BLOOD UREA NITROGEN 48 MG/DL (7-18); CALCIUM LEVEL 8.2 MG/DL (8.8-10.2); CARBON DIOXIDE LEVEL 32 MEQ/L (21-32); CHLORIDE LEVEL 111 MEQ/L (98-107); CREATININE FOR GFR 0.69 MG/DL (0.70-1.30); GLOMERULAR FILTRATION RATE > 60.0 (>49); GLUCOSE, FASTING 161 MG/DL (80-110); POTASSIUM SERUM 4.6 MEQ/L (3.5-5.1); SODIUM LEVEL 147 MEQ/L (136-145)
[2016-06-30 06:55] LABS: DIFF SLIDE NUMBER 26; MEAN CORPUSCULAR HEMOGLOBIN 25.3 pg (27.0-33.0); MEAN CORPUSCULAR HGB CONC 29.4 g/dl (32.0-36.5); MEAN CORPUSCULAR VOLUME 86.2 fl (80.0-96.0); PLATELET COUNT, AUTOMATED 101 k/mm3 (150-450); RED CELL DISTRIBUTION WIDTH 19.1 % (11.5-14.5); WHITE BLOOD COUNT 12.4 K/mm3 (4.0-10.0)
[2016-06-30 07:41] LABS: EOSINOPHILS 1 % (0-5); POIKILOCYTOSIS 1+
--- NOTE | 2016-06-30 07:44 | REP ---
Clinical: Hypoxemia. Intubation. Comparison: 06/29/2016. Findings: Chronic interstitial disease including fibrosis and honeycombing is again noted. Scattered bibasilar infiltrates cannot be excluded and may be minimally improved compared to prior examination. Small left effusion cannot be excluded as well. No pneumothorax. Endotracheal tube and nasogastric tube are in satisfactory position. Right IJ line with tip in the SVC. Impression: Diffuse chronic interstitial disease. Superimposed lower lobe infiltrate/atelectasis (left greater than right) and possible small layering effusion. Signed by Timothy Gonzalez MD 06/30/2016 07:36 A
[2016-06-30 07:50] LABS: ANISOCYTOSIS 2+; HYPOCHROMASIA 1+
--- NOTE | 2016-06-30 08:23 | ECGEPIP ---
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
[2016-06-30] MEDS: CHLORHEXIDINE GLUCONATE 0.12 % 15ML UDC (PERIDEX ORAL RINSE) MT SCH (09:36)
[2016-06-30] MEDS: PANTOPRAZOLE 40MG INJ (PROTONIX) (C9113) IV SCH (09:37)
[2016-06-30] MEDS: ASPIRIN 81 MG CHEW TABLET NG SCH (09:37)
--- NOTE | 2016-06-30 10:20 | CCN ---
DATE OF SERVICE: 06/30/2016 This is an update to the critical care note that was already dictated. I was able to contact the patient's identified healthcare proxy. The patient, prior to intubation, had filled out healthcare proxy paperwork identifying Suad Al as his health care agent. After discussing his current clinical state with Mr. Al, he states that he believes the patient would not want any cardiopulmonary resuscitation (CPR). He also believes that the patient would not want to continue on life support given his current clinical state and the severity of his lung disease. He therefore recommended that he be kept comfortable. I discussed in detail the process of extubation and converting the patient to comfort measures only. The healthcare proxy expressed understanding and stated that he believes that this would be the patient's wishes. Therefore, the patient was terminally extubated to comfort measures. I would expect within the next 24 hours.
[2016-06-30] MEDS: LORazepam 2 MG/ML VIAL (J2060) IV PRN ×3 (10:52→13:38)
[2016-06-30] MEDS: MORPHINE 2 MG/ML 1ML SYRINGE IV PRN ×6 (11:21→13:39)
--- NOTE | 2016-06-30 19:14 | DSES ---
DATE OF ADMISSION: 06/11/2016 DATE OF DISCHARGE: 06/30/2016 Mr. 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 He was admitted to the hospital, required high flow oxygen until he had further respiratory failure requiring intubation, mechanical ventilation and paralysis. He had been on high dose steroids for his entire hospitalization with no significant improvement. He was not well enough to undergo surgical biopsy. It was determined by his healthcare proxy that he would not want any further life support and would not want to continue with his current clinical course given the severity of his lung disease. Therefore, he was terminally extubated on 06/30/2016 according to his healthcare proxy wishes. DISCHARGE DIAGNOSES: 1. 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 2. Acute hypoxic respiratory failure. 3. Hypochromic microcytic anemia, likely from iron deficiency. 4. Atrial fibrillation with rapid ventricular rate (RVR). 5. Hypertension. 6. Type 2 diabetes. 7. Anxiety. 8. Chronic obstructive pulmonary disease. 9. History of nicotine dependence. 10. Severe protein calorie malnourishment MTDD
--- NOTE | 2016-06-30 21:06 | CCN ---
DATE: 06/30/2016 Critical care time is 1 hour, this excludes all procedures. Overnight, I was called for atrial fibrillation with rapid ventricular rate. I started diltiazem drip and despite being on 50 mg per hour, the patient continued to have a heart rate of 120 and therefore digoxin was added. Amiodarone is being avoided as this is the suspected culprit of his interstitial lung disease. This morning he converted to sinus rhythm with a heart rate of 70. Orders to convert to oral diltiazem were placed. The patient remains paralyzed on mechanical ventilation due to the severity of his hypoxia. Current ventilatory settings on volume control, tidal volume 430, respiratory rate of 24 , PEEP of 10, FiO2 of 0.7. Arterial blood gas this morning shows a pH of 7.29, pCO2 of 57.3 with a pAO2 of 62.7. We are following ARDS net protocol for permissive hypercapnia. Endotracheal tube was high on his chest x-ray. This had been advanced into the patient by 2 cm. Endotracheal tube is now 25 cm at the lip. The patient remains at high risk for ICU neuropathy given his high dose steroids and paralysis. PHYSICAL EXAMINATION: Maximum temperature (t-max) is 97.1. Blood pressure is 120/77, now heart rate of 70, respiratory rate of 24. GENERAL: The patient is sedated and paralyzed with a train of three out of four this morning on mechanical ventilation. All sedatives and paralytics were stopped this morning for sedation vacation. HEENT: Sclerae clear and anicteric. Pupils equal, react to light. Mucous membranes are moist without lesions. Tongue is midline. 8.0 endotracheal tube is in place at 25 cm at the lip. He has very poor dentition with multiple cavities and fractured teeth. Neck is supple. No stridor, tracheal deviation or mass. No elevated jugular venous pressure. RESPIRATORY: Bilateral rales without rhonchi or wheeze. No accessory muscle use. CARDIOVASCULAR: Regular S1, S2 without audible murmur, rub or gallop. No elevated JVP. He has peripheral pedal edema. No significant upper extremity edema. GASTROINTESTINAL: No active bowel sounds. No palpable mass, nontender. No hepatosplenomegaly. LYMPHATICS: No discernible cervical or supraclavicular lymphadenopathy. MUSCULOSKELETAL: Significant muscle wasting. EXTREMITIES: No cyanosis or clubbing. Has a TEDs and Kendalls are in place. SKIN: No rashes, jaundice or bruising. Laboratory evaluation shows a sodium 147, potassium 4.6, chloride of 111, bicarbonate of 32, BUN of 48, creatinine of 0.69, glucose of 161. White blood cell count of 12.4, hemoglobin of 15.6 with a platelet count of 101. Arterial blood gas shows a pH of 7.29, pCO2 of 57.3 with a pAO2 of 62.7. Chest x-ray shows diffuse chronic interstitial changes with the endotracheal tube being high. Right IJ is in place with the tip of the catheter in the SVC. Blood cultures have no growth. Methicillin resistant Staphylococcus aureus (MRSA) negative on screening. Urine output has been 35-40 mL per hour. IMPRESSION: 1. Acute hypoxic respiratory failure secondary interstitial lung disease with severe hypoxia, very poor prognosis, on high dose steroids without any significant improvement over the past few weeks. We will continue mechanical ventilation. We will wean paralytics today to help try to prevent ICU neuropathy, which he is at risk for. 2. Atrial fibrillation with rapid ventricular rate. We will switch to oral Cardizem and add digoxin if necessary for rate control. 3. Leukocytosis, improved. No current signs of infection. The patient has a risk of infection given central line and mechanical ventilation. All VAT precautions are being followed. 4. Hypernatremia, mild. The patient will be kept on the dry side due to the severity of his hypoxia. We will continue to monitor urine output. 5. Protein malnourishment. After paralytics are withdrawn, we will attempt to start tube feeds today. 6. Deep vein thrombosis (DVT) prophylaxis with heparin, TEDs and Kendalls. 7. Gastrointestinal prophylaxis with Protonix. Critical care time was 1 hour, as mentioned above. This excludes all procedures. The patient remains critically ill with high likelihood of during this hospitalization. [facility]
== END 2016-06-30 14:05 | disposition expired | DRG 133 ==
LOC: M PCU 14:27 → M ICU 06-12 07:25
PROVIDERS: ADMIT Internal Medicine; ATTEND Internal Medicine Pulmonary Disease
PROC: 30233N1 Transfusion of Nonautologous Red Blood Cells into Peripheral Vein, Percutaneous Approach (ICD-10-PCS; principal; 2016-06-11)
PROC: 5A1945Z Respiratory Ventilation, 24-96 Consecutive Hours (ICD-10-PCS; 2016-06-28)
PROC: 0BH17EZ Insertion of Endotracheal Airway into Trachea, Via Natural or Artificial Opening (ICD-10-PCS; 2016-06-28)
PROC: 05HM33Z Insertion of Infusion Device into Right Internal Jugular Vein, Percutaneous Approach (ICD-10-PCS; 2016-06-28)
DX: J96.01 Acute respiratory failure with hypoxia (principal); E43 Unspecified severe protein-calorie malnutrition; J18.9 Pneumonia, unspecified organism; E87.0 Hyperosmolality and hypernatremia; I95.9 Hypotension, unspecified; B37.0 Candidal stomatitis; J84.10 Pulmonary fibrosis, unspecified; E11.65 Type 2 diabetes mellitus with hyperglycemia; J44.9 Chronic obstructive pulmonary disease, unspecified; I48.91 Unspecified atrial fibrillation; T46.2X5A Adverse effect of other antidysrhythmic drugs, initial encounter; I25.10 Atherosclerotic heart disease of native coronary artery without angina pectoris; I10 Essential (primary) hypertension; F41.9 Anxiety disorder, unspecified; Z87.891 Personal history of nicotine dependence; D50.9 Iron deficiency anemia, unspecified; Z79.899 Other long term (current) drug therapy; Z79.82 Long term (current) use of aspirin; R91.8 Other nonspecific abnormal finding of lung field; E78.5 Hyperlipidemia, unspecified; K21.9 Gastro-esophageal reflux disease without esophagitis; R19.7 Diarrhea, unspecified